=== PATIENT | male | born 1970 | race Caucasian/White ===

== ENCOUNTER 2020-04-06 11:34 | Outpatient (REF) | payer OTHER, SELFPAY | END 2020-04-06 11:35 | disposition home or self-care (01) | LOC: HO.LAB 11:34 | PROVIDERS: PCP Physician Assistant; Visit Provider Internal Medicine | DX: Z20.828 Contact with and (suspected) exposure to other viral communicable diseases (principal) | CPT/HCPCS: 87635 ==

== ENCOUNTER 2021-02-07 10:44 | Outpatient (REF) | payer OTHER, SELFPAY | END 2021-02-07 10:45 | disposition home or self-care (01) | LOC: HO.HMGCLDS 10:44 | PROVIDERS: PCP Physician Assistant; Visit Provider Internal Medicine | DX: Z20.822 Contact with and (suspected) exposure to COVID-19 (principal) | CPT/HCPCS: C9803; U0003; U0005 ==

== ENCOUNTER 2022-08-11 22:48 | Emergency (ER) | payer OTHER, SELFPAY ==
--- NOTE | ~2022-08-11 | XR_ITS ---
EXAMINATION: XR CHEST CLINICAL INFORMATION: Cough, asthma COMPARISON: 01-03 TECHNIQUE: 2 views of the chest were obtained. FINDINGS: Lung volumes are symmetric. No focal consolidation is seen. There is suggestion of mild central peribronchial thickening. No evidence of pneumothorax, pleural effusion, or pulmonary edema. The cardiomediastinal contour is unremarkable. No acute osseous findings are seen. XR/XR chest 2V IMPRESSION: No focal consolidation. Suggestion of mild central peribronchial thickening which may reflect airways disease.
[2022-08-11 22:50] VITALS: BP 125/86; PULSE 117; RESP 20; TEMP 38.3; O2SAT 93; BMI 26.8
--- NOTE | 2022-08-11 23:26 | ED_ITS ---
HPI - Asthma General Chief Complaint: Asthma Stated Complaint: asthma Time Seen by Provider: 08/11/22 23:20 Source: patient Mode of arrival: ambulatory Limitations: no limitations History of Present Illness HPI Narrative: Patient comes to the emergency room complaining asthma and fever. Patient states he has been having URI symptoms for 2 weeks. Patient states that at home he tested negative for COVID. Prior to arriving to the emergency room, patient gave himself a breathing treatment and took 40 mg of prednisone. Patient denies chest pain, no shortness of breath at this time. Related Data Home Medications Medication Instructions Recorded Confirmed fluticasone furoate 100 1 inh inhalation DAILY 03/30/21 03/15/22 mcg-vilanterol 25 mcg/dose inhalation powder (Breo Ellipta) Previous Rx's Medication Instructions Recorded sumatriptan succinate 25 mg tablet See Rx Instructions PO .COMPLEX 30 04/14/21 days #9 tabs montelukast 10 mg tablet 10 mg PO BEDTIME #90 tabs 06/30/21 fluticasone propionate 220 1 puff inhalation BID 30 days #12 09/28/21 mcg/actuation HFA aerosol inhaler grams (Flovent HFA) omeprazole 20 mg capsule,delayed 20 mg PO DAILY 90 days #90 caps 09/28/21 release cyclobenzaprine 10 mg tablet 10 mg PO BEDTIME #14 tabs 02/23/22 azithromycin 250 mg tablet See Rx Instructions PO .COMPLEX #6 05/01/22 tabs albuterol sulfate 90 mcg/actuation 2 puff inhalation Q6H 90 days #3 05/18/22 aerosol inhaler inhalers prednisone 20 mg tablet 20 mg PO DAILY 9 days #18 tabs 05/18/22 albuterol sulfate 90 mcg/actuation 1 inh inhalation QID 30 days #8.5 05/24/22 aerosol inhaler grams albuterol sulfate 90 mcg/actuation 2 puff inhalation Q4-6H PRN 08/12/22 aerosol inhaler shortness of breath or wheezing #8.5 grams benzonatate 100 mg capsule 100 mg PO TID PRN cough #10 caps 08/12/22 prednisone 50 mg tablet 50 mg PO DAILY #4 tabs 08/12/22 Allergies Allergy/AdvReac Type Severity Reaction Status Date / Time No Known Allergies Allergy Unknown UNKNOWN Verified 03/15/22 13:11 [NO KNOWN ALLERGIES] Review of Systems Review of Systems: Constitutional : No Weight loss, complaining of intermittent Fever, No Chills, No Night Sweats, No Fatigue, No Malaise ENT/Mouth : No Hearing loss, No Ear Pain, No Nasal Congestion, No Sinus Pain, No Hoarseness, No sore throat, No Rhinorrhea, No Swallowing Difficulty Eyes: No Eye Pain, No Swelling, No Redness, No Foreign Body, No Discharge, No Vision Changes Cardiovascular : No Chest Pain, No SOB, No Dyspnea on Exertion, No Orthopnea, No Edema, No Palpitations Respiratory : Complaining of cough, wheezing and dyspnea. At this time asymptomatic. Gastrointestinal : No Nausea, No Vomiting, No Diarrhea, No Constipation, No abdominal Pain, No Hematochezia, No Melena Genitourinary : no irregular bleeding, No Dysuria, No Urinary Frequency, No Hematuria, No Urinary Incontinence, No Urgency, No Flank Pain, No Urinary Flow Changes, No Hesitancy Musculoskeletal : No joint pain, No Myalgias, No Joint Swelling Skin : No Skin Lesions, No rash Neuro : No Weakness, No Numbness, No Paresthesias, No Loss of Consciousness, No Dizziness, No Headache Psych : No Anxiety/Panic, No Depression, No SI/HI/AH/VH, No Social Issues, Heme/Lymph: No Bruising, No Bleeding,No Lymphadenopathy Endocrine : No Polyuria, No Polydipsia, No Temperature Intolerance FORMERLY [facility] Past Medical History Medical History Abdominal pain Asthma GERD (gastroesophageal reflux disease) IBS (irritable bowel syndrome) Other chronic pain Surgical History History of surgery Social History Social History (Updated 03/15/22 @ 13:16 by Arnaldo Marion PA-C) Housing: House Alcohol intake: current Alcohol intake frequency: holidays/special occasions only Alcohol type: beer Patient Tobacco Use Status: Former Tobacco user e-Cigarette/Vaping Use: Never Used Second Hand Smoke Exposure: No Advance Directives: No Advance Directives Information Provided: No service: No Current occupational status: employed Current occupational exposures/hazards: No Cognitive needs: No Hearing needs: No Vision needs: Yes (wae glasses) Physical Exam Vital Signs: Vital Signs: Last Vital Signs Temp 101 F H 08/11/22 22:50 Pulse 117 H 08/11/22 22:50 Resp 20 08/11/22 22:50 BP 125/86 08/11/22 22:50 Pulse Ox 93 08/11/22 22:50 O2 Del Method 08/11/22 22:50 BMI result Body Mass Index 26.8 Const: Other: Appearance: Alert. Oriented X3. No acute distress. Eyes: Pupils equal, round and reactive to light. ENT: Pharynx normal. Neck: Normal inspection. Neck supple. No lymph nodes noted. No crepitus CVS: Normal heart rate and rhythm. Pulses normal. Normal S1 and S2 Respiratory: No respiratory distress. Breath sounds normal. No Wheezing. No rales Abdomen: Soft and nontender. No rigidity. No distention. Skin: Skin warm and dry. Normal skin color. Normal skin turgor. Extremities: No lower extremity edema. No Lacerations. No Rash Neuro: Oriented X 3. No motor deficit. No sensory deficit. Moving all extremities. No slurred speech. CN 2 through 12 grossly intact Psych: calm, cooperative, normal affect Course Course Course Narrative: -patient's physical exam is normal except by the tachycardia. Patient's oxygen saturation 93% on room air, very good air movement, no wheezing. Patient gave himself a treatment prior to arriving to the emergency room explaining the tachycardia. At this time, bring treatment not indicated, airways completely open. -chest x-ray and serology labs pending Medications Administered Discontinued Medications Generic Name Dose Route Start Last Admin Trade Name Gilq PRN Reason Stop Dose Admin Acetaminophen 975 mg 08/11/22 23:21 08/11/22 23:36 Acetaminophen 325 Mg Tablet PO 08/11/22 23:22 975 mg ONCE ONE Administration Prednisone 20 mg 08/11/22 23:46 08/11/22 23:48 Prednisone 20 Mg Tablet PO 08/11/22 23:47 20 mg ONCE ONE Administration Medical Decision Making Medical Decision Making [facility] Narrative: -chest x-ray does not show any consolidation. Patient likely has viral bronchitis, antibiotics not indicated at this time. -patient tested negative for influenza a, COVID and RSV Differential Diagnosis Differential Diagnoses: The differential diagnosis associated with the presentation includes (Asthma exacerbation, viral bronchitis) Lab Data [facility] Lab Attestation statement: I reviewed the patient's lab results. Labs: Lab Results 08/11/22 Range/Units 22:56 Influenza Type A (PCR) NEGATIVE (Negative) Influenza Type B (PCR) NEGATIVE (Negative) RSV RNA Qual (PCR) NEGATIVE (Negative) SARS-CoV-2 RNA (RT-PCR) NEGATIVE (Negative) Independent Interpretation I performed an independent interpretation of an: Plain X-Ray (Chest x-ray interpretation: No pneumonia) Radiology Impression Discussion of test interpretation with radiology: I have reviewed the radiologist's reading. Radiologist Impression: FINDINGS: Lung volumes are symmetric. No focal consolidation is seen. There is suggestion of mild central peribronchial thickening. No evidence of pneumothorax, pleural effusion, or pulmonary edema. The cardiomediastinal contour is unremarkable. No acute osseous findings are seen. XR/XR chest 2V IMPRESSION: No focal consolidation. Suggestion of mild central peribronchial thickening which may reflect airways disease. Discharge Plan Discharge Clinical Impression: Bronchitis, Asthma Patient Disposition: Home, Self-Care Instructions: Acute Bronchitis (ED), Wheezing (ED) Additional Instructions: Please follow-up with your primary care physician tomorrow. If you have any worsening or new symptoms, please return to the emergency room or call 911 Prescriptions: New albuterol sulfate 90 mcg/actuation HFA aerosol inhaler 2 puff inhalation Q4-6H PRN (Reason: shortness of breath or wheezing) Qty: 8.5 1RF prednisone 50 mg tablet 50 mg PO DAILY Qty: 4 0RF benzonatate 100 mg capsule 100 mg PO TID PRN (Reason: cough) Qty: 10 0RF No Action sumatriptan succinate 25 mg tablet See Rx Instructions PO .COMPLEX 30 Days Qty: 9 3RF Rx Instructions: take 1 tab at onset of headache; if no relief may repeat 1 tab after at least 2 hrs; max = 4 tabs/24 hr PO azithromycin 250 mg tablet See Rx Instructions PO .COMPLEX Qty: 6 0RF Rx Instructions: For 250 mg dose pack: take 500 mg today (day 1), then 250 mg for 4 days (days 2-5) PO prednisone 20 mg tablet 20 mg PO DAILY 9 Days Qty: 18 0RF albuterol sulfate 90 mcg/actuation HFA aerosol inhaler 2 puff inhalation Q6H 90 Days Qty: 3 3RF albuterol sulfate 90 mcg/actuation HFA aerosol inhaler 1 inh inhalation QID 30 Days Qty: 8.5 3RF Breo Ellipta 100-25 mcg/dose blister with device 1 inh inhalation DAILY montelukast 10 mg tablet 10 mg PO BEDTIME Qty: 90 2RF Flovent HFA 220 mcg/actuation HFA aerosol inhaler 1 puff inhalation BID 30 Days Qty: 12 3RF omeprazole 20 mg capsule,delayed release(DR/EC) 20 mg PO DAILY 90 Days Qty: 90 2RF cyclobenzaprine 10 mg tablet 10 mg PO BEDTIME Qty: 14 0RF
[2022-08-11] MEDS: Acetaminophen 325 MG TABLET 975 MG PO (23:36)
[2022-08-11] MEDS: predniSONE 20 MG TABLET PO (23:48)
[2022-08-12 01:05] LABS: Influenza A PCR NEGATIVE (Negative); Influenza B PCR NEGATIVE (Negative); Resp Syncy Virus RNA Qual PCR NEGATIVE (Negative); SARS COV2 PCR INHOUSE NEGATIVE (Negative)
[2022-08-12 03:01] VITALS: BP 126/83; PULSE 88; RESP 16; TEMP 37.3; O2SAT 98
== END 2022-08-12 03:04 | disposition home or self-care (01) ==
PROVIDERS: Emergency Provider Emergency Medicine; PCP Physician Assistant
DX: J40 Bronchitis, not specified as acute or chronic (principal); R50.9 Fever, unspecified; Z20.822 Contact with and (suspected) exposure to COVID-19; Z20.828 Contact with and (suspected) exposure to other viral communicable diseases; Z87.891 Personal history of nicotine dependence; Z79.899 Other long term (current) drug therapy
CPT/HCPCS: 0241U; 71046; 99283; 99284

== ENCOUNTER 2023-07-17 09:58 | Outpatient (AMB) | payer OTHER, SELFPAY ==
--- NOTE | 2023-07-17 10:26 | A.OFFPC_ITS ---
Vital Signs 07/17/23 10:33 Height 5 ft 5 in Weight 169 lb 6 oz BMI 28.2 BP 132/86 Blood Pressure Location Lt brachial Position Sitting Pulse 82 Pulse Source Pulse Oximeter Pulse Oximetry (%) 97 Oxygen Delivery Method Room Air Intake Visit Reasons: follow up/asthma Intake Note: Patient is here to follow up on Asthma. 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 Accompanied by: Self / Same As Patient Allergies No Known Allergies [NO KNOWN ALLERGIES] Allergy (Unknown, Verified 07/17/23 10:48) UNKNOWN Medication List - Last Reconciled 07/17/23 by Arnaldo Marion PA-C albuterol sulfate 90 mcg/actuation 2 puffs inhalation Q4-6H PRN albuterol sulfate 2.5 mg (3 mL) inhalation Q6H PRN 30 days cyclobenzaprine 10 mg PO BEDTIME montelukast 10 mg PO BEDTIME omeprazole 20 mg PO DAILY 90 days sumatriptan succinate take 1 tab at onset of headache; if no relief may repeat 1 tab after at least 2 hrs; max = 4 tabs/24 hr orally PRN; Tobacco use date assessed: 07/17/23 Dental Screening Dental Screen Date: 07/17/23 Did you have a dental visit in the last 12 months?: Yes Did you have a dental problem in the last 6 months where you did not have access to dental care?: No Was dental information given to patient?: Patient has dentist HPI follow up/asthma HPI Details Patient is a 53-year-old male here today for a follow-up visit ?Patient has a past medical history significant for moderate persistent asthma, migraines, GERD Concern--> reports he has been having bilateral hand pain and mild swelling. He feels he has arthritis .. Asthma:? Reports his asthma has fairly well controlled.? 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 Still has exacerbations due to environmental allergies and colds.? He also uses Singulair which he reports helps some.? Has used maintenance inhalers (Advair and Symbicort)? in the past without much relief of his asthma symptoms.? He reports using Breo which works well to control his asthma though has headaches. .. GERD:? Has started on daily use of omeprazole which works wonderfully and reducing his GERD symptoms . [facility]LY [facility] Medical History Abdominal pain Asthma GERD (gastroesophageal reflux disease) IBS (irritable bowel syndrome) Other chronic pain Surgical History History of surgery Social History Housing: House Alcohol intake: current Alcohol intake frequency: holidays/special occasions only Alcohol type: beer Patient Tobacco Use Status: Former Tobacco user e-Cigarette/Vaping Use: Never Used Second Hand Smoke Exposure: No service: No Current occupational status: employed Current occupational exposures/hazards: No Cognitive needs: No Hearing needs: No Vision needs: Yes (wae glasses) Questionnaire PHQ-9 Over the last 2 weeks, how often have you been bothered by any of the following problems? 1. Little interest or pleasure in doing things: not at all 2. Feeling down, depressed, or hopeless: not at all 3. Trouble falling or staying asleep, or sleeping too much: not at all 4. Feeling tired or having little energy: not at all 5. Poor appetite or overeating: not at all 6. Feeling bad about yourself - or that you are a failure or have let yourself or your family down: not at all 7. Trouble concentrating on things, such as reading the newspaper or watching television: not at all 8. Moving or speaking so slowly that other people could have noticed. Or the opposite - being so fidgety or restless that you have been moving around a lot more than usual: not at all 9. Thoughts that you would be better off or of hurting yourself in some way: not at all Total score: 0 Depression Screening Interpretation: Negative Depression Screening Done: Yes 16793 - PHQ-9 Billing: Yes Source: Developed by Drs. Mark Maynard, Amanda Vásquez, Dinesh Stone and colleagues, with an educational idania from [employer]. Thrive Questionnaire Date Thrive assessed: 07/17/23 I am a: Patient What is your living situation today?: I have a steady place to live Within the past 12 months, did the food you bought not last and you didn't have the money to get more?: Never true Within the past 12 months, did you worry whether your food would run out before you got money to buy more?: Never true Do you have trouble paying for medicines?: No Do you have trouble getting transportation to medical appointments?: No Do you have trouble paying your heating and electricity bill?: No Do you have trouble taking care of your child, family member or friend?: No Do you have trouble with day-to-day activities such as bathing, preparing meals, shopping, managing finances, etc.?: No Are you currently unemployed and looking for a job?: No Are you interested in more education?: No Please select the resources that you would like help with: None Currently or been in a relationship where the following occur: no concerns reported THRIVE Score: 0 AUDIT C Alcohol Use Questionnaire (AUDIT-C) 1. How often do you have a drink containing alcohol?: Never 3. How often do you have six or more drinks on one occasion?: Never Total Score: 0 JANA-7 AMB Questionnaire JANA-7 Date JANA - 7 assessed: 07/17/23 Feeling nervous, anxious, or on edge: 0 = Not at all Not being able to stop or control worryin = Not at all Worrying too much about different things: 0 = Not at all Trouble relaxin = Not at all Being so restless that it is hard to sit still: 0 = Not at all Becoming easily annoyed or irritable: 0 = Not at all Feeling afraid as if something awful might happen: 0 = Not at all Total JANA-7 score (0-4 normal; 5-9 mild; 10-14 moderate; 15-21 severe): 0 Source: Developed by Drs. Mark Maynard, Amanda Vásquez, Dinesh Stone and colleagues, with an educational idania from [employer]. JANA-7 Assessment Billing JANA-7 Assessment Tool: JANA-7 Assessment 33177 ACT Questionnaire In the past 4 weeks, how much of the time did your asthma keep you from getting as much done at work, school or at home?: None of the time During the past 4 weeks, how often have you had shortness of breath?: 1-2 times a week During the past 4 weeks, how often did your asthma symptoms wake you up at night or earlier than usual in the morning?: Once a week During the past 4 weeks, how often have you had to use your rescue inhaler or nebulizer medication?: 1-2 times a week How would you rate your asthma control during the past 4 weeks?: Somewhat contr olled ACT Interpretation: Negative Score: 17 Review of Systems Const Denies headache(s) Eyes Denies loss of vision ENT Denies vertigo, Denies dizziness, Denies headache(s) and Denies sore throat Card Denies chest pain, Denies leg edema and Denies lightheadedness Resp Denies cough, Denies hemoptysis and Denies wheezing GI Denies abdominal pain, Denies melena, Denies constipation, Denies diarrhea and Denies vomiting Denies dysuria, Denies urinary frequency and Denies urinary urgency Musc Denies arthralgias, Denies joint swelling, Denies numbness and Denies tingling Neuro Denies Abnormal speech present, Denies behavioral changes, Denies vertigo, Denies dizziness, Denies headache(s), Denies loss of vision, Denies memory loss, Denies numbness and Denies tingling Psych Denies anxiety, Denies behavioral changes, Denies depression, Denies memory loss and Denies panic attacks Leno/Lymph Denies easy bleeding and Denies easy bruising Aller/Immun Denies wheezing Physical exam (Primary Care) Vital Signs: Last Vital Signs Pulse 82 07/17/23 10:33 BP 132/86 07/17/23 10:33 Pulse Ox 97 07/17/23 10:33 Oxygen Delivery Method Room Air 07/17/23 10:33 BMI result Body Mass Index 28.2 Tobacco/Smoking Status: Tobacco use Status Tobacco use date assessed 07/17/23 07/17/23 10:43 Patient Tobacco Use Status Former Tobacco user 07/17/23 10:26 e-Cigarette/Vaping Use Never Used 07/17/23 10:26 PHQ-9: PHQ-9 Score PHQ-9: Total score 0 07/17/23 10:49 Depression Screening Interpretation: Negative Thrive Assessment: Date of Thrive Assessment Date Thrive assessed 07/17/23 07/17/23 10:43 Currently or been in a relationship where the following occur: no concerns reported Const General: healthy appearing, no acute distress, alert and awake Nutritional Appearance: well nourished Orientation/consciousness: oriented to person, oriented to place and oriented to time HENMT Ears: TM's normal bilaterally General nose exam: Normal nasal mucous membranes and turbinates present Eyes Conjunctivae: conjunctivae normal Sclerae: sclerae normal Pupils: Equal, round and reactive pupils present Neck Neck: Yes no lymphadenopathy and Yes no JVD Thyroid: Thyroid normal Carotids: no bruits Resp Effort & Inspection: normal respiratory effort and not tachypneic Auscultation: no crackles, no rales, no rhonchi and no wheezes Cardio Rate: regular rate Rhythm: regular rhythm Heart sounds: no murmurs and normal S1 and S2 GI Palpation (GI): Soft to palpation, nontender, no hepatomegaly and no splenomegaly Auscultation: normal bowel sounds Skin General skin exam: no rashes or lesions noted and dry skin Neuro General: oriented to person, oriented to place and oriented to time Cranial nerves: Yes Equal, round and reactive pupils present Speech: No Abnormal speech present Gait exam (Neuro): Normal gait present Motor exam (neuro): no tremor noted Extrem Right upper extremity: full ROM Left upper extremity: full ROM Right lower extremity: full ROM; no edema Left lower extremity: full ROM; no edema Psych Mental Status: mental status grossly normal Speech and movement: Normal speech and movement present Affect: normal affect Attitude: cooperative Thought process: Normal thought process present Assessment and Plan Assessment & Plan (1) Moderate persistent asthma: Code(s): J45.40 - Moderate persistent asthma, uncomplicated Qualifiers: Asthma complication type: uncomplicated Qualified Code(s): J45.40 - Moderate persistent asthma, uncomplicated Plan: Asthma has been better controlled 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 Does uses albuterol inhaler from time to time. He reports maintenance inhalers did not help him . Does use prednisone from time to time for emergencies. (2) Fatigue: Code(s): R53.83 - Other fatigue Qualifiers: Fatigue type: unspecified Qualified Code(s): R53.83 - Other fatigue (3) GERD (gastroesophageal reflux disease): Code(s): K21.9 - Gastro-esophageal reflux disease without esophagitis Qualifiers: Esophagitis presence: without esophagitis Qualified Code(s): K21.9 - Gastro-esophageal reflux disease without esophagitis Plan: Patient has good symptoms have been stable with current use of PPI therapy. (4) Hand arthritis: Code(s): M19.049 - Primary osteoarthritis, unspecified hand Plan: He reports he is bothered by bilateral hand arthritis pain. 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 Offered him occupational therapy though he declines at this time. Will test for autoimmune disease. He is willing to try an anti-inflammatory as needed, will send in meloxicam to use on a p.r.n. basis. Orders: Orders Comprehensive [place]. Panel Fast 07/17/23 Z13.1 - Encounter for screening for diabetes mellitus Rheumatoid Factor 07/17/23 M19.049 - Primary osteoarthritis, unspecified hand Cyclic Citrullinated Peptide 07/17/23 M19.049 - Primary osteoarthritis, unspecified hand Complete Blood Count no Diff 07/17/23 K21.9 - Gastro-esophageal reflux disease without esophagitis Prostate Specific Antigen Scr 07/17/23 Z12.5 - Encounter for screening for malignant neoplasm of prostate, Z13.1 - Encounter for screening for diabetes mellitus CASE Reflex Titer and Pattern 07/17/23 M19.049 - Primary osteoarthritis, unspecified hand Referrals Gastroenterology Referral Z12.11 - Encounter for screening for malignant neoplasm of colon Medications: New acetaminophen ER (Tylenol Arthritis Pain) 650 mg PO Q12H 30 days 60 tabs 0RF M19.049 - Primary osteoarthritis, unspecified hand, M19.90 - Unspecified osteoarthritis, unspecified site prednisone 20 mg PO DAILY 10 days 10 tabs 0RF J45.40 - Moderate persistent asthma, uncomplicated albuterol sulfate 2.5 mg (3 mL) inhalation Q6H 30 days PRN 360 mL 1RF shortness of breath or wheezing J45.40 - Moderate persistent asthma, uncomplicated meloxicam 15 mg PO DAILY 15 days 15 tabs 0RF M19.049 - Primary osteoarthritis, unspecified hand Changed From sumatriptan succinate take 1 tab at onset of headache; if no relief may repeat 1 tab after at least 2 hrs; max = 4 tabs/24 hr orally PRN; G43.909 - Migraine, unspecified, not intractable, without status migrainosus To sumatriptan succinate take 1 tab at onset of headache; if no relief may repeat 1 tab after at least 2 hrs; max = 4 tabs/24 hr PO 30 days 9 tabs 0RF G43.909 - Migraine, unspecified, not intractable, without status migrainosus Refilled montelukast 10 mg PO BEDTIME 90 tabs 2RF J45.40 - Moderate persistent asthma, uncomplicated omeprazole 20 mg PO DAILY 90 days 90 caps 2RF J45.40 - Moderate persistent asthma, uncomplicated, K21.9 - Gastro-esophageal reflux disease without esophagitis Coding Level of Care Code Est Pt Level 4 (56371) Diagnoses Moderate persistent asthma without complication J45.40 Asthma complication type: uncomplicated Fatigue, unspecified type R53.83 Fatigue type: unspecified Gastroesophageal reflux disease without esophagitis K21.9 Esophagitis presence: without esophagitis Hand arthritis M19.049 Additional Codes JANA-7 Assessment Billing - JANA-7 Assessment Tool: JANA-7 Assessment 32299 ([id number])
[2023-07-17 10:33] VITALS: BP 132/86; PULSE 82; O2SAT 97; BMI 28.2
== END 2023-07-17 11:11 | disposition home or self-care (01) ==
PROVIDERS: PCP Physician Assistant; Visit Provider Physician Assistant
DX: J45.40 Moderate persistent asthma, uncomplicated (principal); R53.83 Other fatigue; K21.9 Gastro-esophageal reflux disease without esophagitis; M19.049 Primary osteoarthritis, unspecified hand
CPT/HCPCS: 99214

== ENCOUNTER 2023-08-21 13:00 | Emergency (ER) | payer OTHER, SELFPAY ==
--- NOTE | ~2023-08-21 | XR_ITS ---
EXAMINATION: XR CHEST CLINICAL INFORMATION: Chest pain COMPARISON: None available. TECHNIQUE: 2 views of the chest were obtained. FINDINGS: No significant abnormality is noted involving the heart, lungs, mediastinum, bony thorax or soft tissues. XR/XR chest 2V IMPRESSION: Unremarkable chest examination.
[2023-08-21 13:02] VITALS: BP 143/94; PULSE 83; RESP 16; TEMP 36.6; O2SAT 99; BMI 24.6
--- NOTE | 2023-08-21 13:03 | ECG_ITS ---
Test Reason : palpitations Blood Pressure : / mmHG Vent. Rate : 077 BPM Atrial Rate : 077 BPM P-R Int : 134 ms QRS Dur : 086 ms QT Int : 358 ms P-R-T Axes : 073 054 043 degrees QTc Int : 405 ms Normal sinus rhythm Normal ECG When compared with ECG of 27-DEC-2018 10:58, No significant change was found Referred By: Gregorio Quinones Electronically Signed By:Rashad Mckay
--- NOTE | 2023-08-21 13:03 | ED_ITS ---
HPI - General Adult General Chief complaint: General Medical Stated complaint: Anxiety Attack SOB Time Seen by Provider: 08/21/23 15:53 Source: patient Mode of arrival: ambulatory Limitations: no limitations History of Present Illness HPI narrative: Patient is a 53-year-old male presenting to the emergency department with complaint of feeling shaky and short of breath prior to arrival. He states that on Sunday night his daughter developed nausea, vomiting, and diarrhea. He reports that on Sunday he developed the same symptoms, was unable to tolerate any fluids by mouth on Sunday. States yesterday he began to feel better and was able to tolerate food and fluids by mouth. Today while he was driving to work he suddenly felt shaky and short of breath as well as chest tightness. He also complains of right flank pain. He denies any dysuria, frequency, hematuria or other urinary symptoms. Denies fevers. Denies abdominal pain. MD complaint: shaky, short of breath Onset (ago): hour(s) Quality: aching Pain Consistency: colicky Treatments prior to arrival: none Related Data Previous Rx's Medication Instructions Recorded cyclobenzaprine 10 mg tablet 10 mg PO BEDTIME #14 tabs 02/23/22 acetaminophen 650 mg 650 mg PO Q12H 30 days #60 tabs 07/17/23 tablet,extended release (Tylenol Arthritis Pain) albuterol sulfate 2.5 mg/3 mL 2.5 mg (3 mL) inhalation Q6H PRN 07/17/23 (0.083 %) solution for nebulization shortness of breath or wheezing 30 days #360 mL meloxicam 15 mg tablet 15 mg PO DAILY 15 days #15 tabs 07/17/23 montelukast 10 mg tablet 10 mg PO BEDTIME #90 tabs 07/17/23 omeprazole 20 mg capsule,delayed 20 mg PO DAILY 90 days #90 caps 07/17/23 release prednisone 20 mg tablet 20 mg PO DAILY 10 days #10 tabs 07/17/23 albuterol sulfate 90 mcg/actuation 2 puff inhalation Q4-6H PRN 08/05/23 aerosol inhaler shortness of breath or wheezing #8.5 grams sumatriptan succinate 25 mg tablet See Rx Instructions PO .COMPLEX 30 08/13/23 days #9 tabs Allergies Allergy/AdvReac Type Severity Reaction Status Date / Time No Known Allergies Allergy Unknown UNKNOWN Verified 07/17/23 10:48 [NO KNOWN ALLERGIES] Review of Systems 2 Review of Systems: As per HPI. Yes all other systems are reviewed and are negative [facility] Past Medical History Medical History Abdominal pain Asthma GERD (gastroesophageal reflux disease) IBS (irritable bowel syndrome) Other chronic pain Surgical History History of surgery Social History Social History Housing: House Alcohol intake: current Alcohol intake frequency: holidays/special occasions only Alcohol type: beer Patient Tobacco Use Status: Former Tobacco user e-Cigarette/Vaping Use: Never Used Second Hand Smoke Exposure: No Advance Directives: No Advance Directives Information Provided: No service: No Current occupational status: employed Current occupational exposures/hazards: No Cognitive needs: No Hearing needs: No Vision needs: Yes (wae glasses) Physical Exam ED Vital Signs: Vital Signs - 24 hr 08/21/23 13:02 08/21/23 15:34 Temperature 97.8 F 97.8 F Pulse Rate 83 76 Respiratory Rate 16 16 Blood Pressure 143/94 H 116/84 Pulse Oximetry 99 96 Oxygen Delivery Method Room Air Room Air BMI result Body Mass Index 24.6 Vital signs have been reviewed and appear to be correct. Blood pressure normal. Heart rate normal. Respiratory rate normal. Temperature normal. Oxygen saturation normal. Course Course Course Narrative: RME- 53 year old male presents for evaluation of shortness of breath and anxiety. He reports right flank pain. He also reports that he was vomiting and weak all day yesterday. Denies any history of anxiety. Medications Administered Discontinued Medications Generic Name Dose Route Start Last Admin Trade Name Freq PRN Reason Stop Dose Admin Potassium Chloride 20 meq 08/21/23 16:23 08/21/23 17:05 Potassium Chloride Packet 20 Meq Packet PO 08/21/23 16:24 20 meq ONCE ONE Administration Medical Decision Making Medical Decision Making [facility] Narrative: Patient is a 53-year-old male presenting to the emergency department with complaint of feeling shaky and short of breath prior to arrival. On exam patient is awake, A+Ox3, VS WNL, afebrile, normal neurological exam without focal deficits, physical exam findings as above. Given reported symptoms and physical exam findings, initial differential includes electrolyte abnormality, dehydration, viral illness, cardiac dysrhythmia, anemia. Unlikely ACS. Labs notable for mild hypokalemia, no other significant electrolyte abnormalities, no leukocytosis or anemia. EKG shows normal sinus rhythm. No evidence of infection on urinalysis. Swabs for COVID, flu, RSV negative. X-ray notable for no evidence of pneumonia or other acute abnormality. My interpretation is in agreement with the radiologist's interpretation. P.o. potassium ordered in the ED. Patient able to tolerate fluids without vomiting. Patient updated on all results and all questions answered. Advised patient to ensure adequate fluid intake with fluids including electrolytes such as Gatorade, Powerade, Pedialyte, etc.. Instructed patient to follow-up with primary care provider for recheck of labs this week. Return precautions discussed at bedside. Patient verbalized understanding of and agreement with plan. Differential Diagnosis Differential Diagnoses: The differential diagnosis associated with the presentation includes As per [facility]. Lab Data [facility] Lab Attestation statement: I reviewed the patient's lab results. As per [facility]. 08/21/23 13:24 08/21/23 13:24 Labs: Lab Results 08/21/23 08/21/23 Range/Units 13:24 17:11 WBC 7.7 (4.8-10.8) X10*3/uL RBC 5.53 (4.60-5.80) X10*6/uL Hgb 16.6 (14.0-18.0) g/dl Hct 45.5 (42.0-52.0) % MCV 82.3 (80.0-98.0) fL MCH 30.0 (27.0-33.0) pg MCHC 36.5 H (31.0-36.0) g/dl RDW 13.1 (11.0-16.0) % Plt Count 258 (160-400) X10*3/uL MPV 9.2 L (9.4-12.4) fL Immature Gran % (Auto) 0.3 (0.0-0.4) % Neut % (Auto) 63.6 (45-73) % Lymph % (Auto) 27.6 (20-40) % [place]assen % (Auto) 8.4 (2-11) % Eos % (Auto) 0.0 (0-4) % Baso % (Auto) 0.1 (0-2) % Lymph # (Auto) 2.1 (1.2-4.9) X10*3/uL [place] # (Auto) 0.7 (0.1-1.2) X10*3/uL Eos # (Auto) 0.0 (0.0-0.4) X10*3/uL Baso # (Auto) 0.0 (0.0-0.2) X10*3/uL Abs Immat Gran (auto) 0.02 (0.00-0.03) X10*3/uL Absolute Neuts (auto) 4.9 (2.0-8.3) x10*3/uL Absolute Nucleated RBC 0.000 (0.0-0.012) X10*3/uL Nucleated RBC % (auto) 0.0 (0.0-0.2) /100WBC Sodium 140 (135-145) mmol/L Potassium 3.1 L (3.3-5.1) mmol/L Chloride 110 H (96-108) mmol/L Carbon Dioxide 22 (22-29) mmol/L Anion Gap 11 L (12-20) BUN 14 (9-16) mg/dL Creatinine 0.94 (0.5-1.4) mg/dL Estim Creat Clear Calc 88.9 Estimated GFR > 60 Random Glucose 123 H (60-115) mg/dL Calcium 8.8 (8.4-10.2) mg/dL Magnesium 2.1 (1.6-2.6) mg/dL Total Bilirubin 0.3 (0.0-1.0) mg/dL AST 18 (5-37) U/L ALT 23 (0-40) U/L Alkaline Phosphatase 68 (39-117) U/L Troponin I High Sens < 2.7 (<3.5-35.0) ng/L Total Protein 6.6 (6.5-8.0) g/dL Albumin 3.9 (3.5-5.0) g/dL Lipase 22 (8-78) U/L TSH 0.84 (0.32-4.0) uIU/mL Urine Color Yellow Urine Appearance Clear Urine pH 6.5 (5.0-9.0) Ur Specific [place] >= 1.030 H (1.005-1.025) Urine Protein Trace (Neg-Trace) mg/dL Urine Glucose (UA) Negative (Negative) mg/dL Urine Ketones Negative (Negative) mg/dL Urine Blood Negative (Negative) Urine Nitrite Negative (Negative) Ur Leukocyte Esterase Negative (Negative) Urine RBC 0-2 (0-2) /HPF Urine WBC 0-5 (0-5) /HPF Ur Squamous Epith Cells 0-2 (0-2) /HPF Urine Bacteria None Seen (None Seen) Hyaline Casts 0-2 (0-2) /LPF Influenza Type A (PCR) NEGATIVE (Negative) Influenza Type B (PCR) NEGATIVE (Negative) RSV RNA Qual (PCR) NEGATIVE (Negative) SARS-CoV-2 RNA (RT-PCR) NEGATIVE (Negative) Independent Interpretation I performed an independent interpretation of an: EKG (normal sinus rhythm, rate 77bp, normal pr interval and QTc) and Plain X-Ray Interpretation: No evidence of pneumonia, pneumothorax on CXR Radiology Impression Discussion of test interpretation with radiology: I have reviewed the radiologist's reading. Radiologist Impression: XR/XR chest 2V IMPRESSION: Unremarkable chest examination. External Record Review External record reviewed: Inpatient record, Office record and Outpatient record Discharge Plan Discharge Clinical Impression: Hypokalemia Patient Disposition: Home, Self-Care Instructions: Potassium Content of Foods List (ED), Hypokalemia (ED) Additional Instructions: You were evaluated in the emergency department today for shakiness and shortness of breath. Your symptoms are likely related to your recent gastrointestinal illness. Your potassium was found to be low in the emergency department today you were given oral potassium to replace this. You should follow-up with your primary care provider within 2 days so that your labs can be rechecked to be sure that your potassium remains at a normal level. It is important that you hydrate with fluids that contain electrolytes with drinks such as Gatorade, Powerade, Pedialyte, etc.. Return to the emergency department if you were unable to tolerate fluids by mouth, have persistent vomiting, develop chest pain, shortness of breath, abdominal pain, fever or any other concerning symptoms. Prescriptions: No Action albuterol sulfate 90 mcg/actuation HFA aerosol inhaler 2 puff inhalation Q4-6H PRN (Reason: shortness of breath or wheezing) Qty: 8.5 3RF sumatriptan succinate 25 mg tablet See Rx Instructions PO .COMPLEX 30 Days Qty: 9 0RF Rx Instructions: take 1 tab at onset of headache; if no relief may repeat 1 tab after at least 2 hrs; max = 4 tabs/24 hr PO montelukast 10 mg tablet 10 mg PO BEDTIME Qty: 90 2RF albuterol sulfate 2.5 mg /3 mL (0.083 %) solution for nebulization 2.5 mg inhalation Q6H PRN (Reason: shortness of breath or wheezing) 30 Days Qty: 360 1RF omeprazole 20 mg capsule,delayed release(DR/EC) 20 mg PO DAILY 90 Days Qty: 90 2RF acetaminophen [Tylenol Arthritis Pain] 650 mg tablet extended release 650 mg PO Q12H 30 Days Qty: 60 0RF meloxicam 15 mg tablet 15 mg PO DAILY 15 Days Qty: 15 0RF prednisone 20 mg tablet 20 mg PO DAILY 10 Days Qty: 10 0RF cyclobenzaprine 10 mg tablet 10 mg PO BEDTIME Qty: 14 0RF Stand Alone Forms: Work/School Release
[2023-08-21 13:30] LABS: MANUAL DIFF FLAG NO
[2023-08-21 13:36] LABS: Basophils Percent Auto 0.1 % (0-2); Hematocrit 45.5 % (42.0-52.0); Hemoglobin 16.6 g/dl (14.0-18.0); Imm Gran Abs Auto 0.02 X10*3/uL (0.00-0.03); Imm Gran Pct Auto 0.3 % (0.0-0.4); Lymphocytes Absolute Auto 2.1 X10*3/uL (1.2-4.9); Lymphocytes Percent Auto 27.6 % (20-40); Mean Corpuscular HGB Conc 36.5 g/dl (31.0-36.0); Mean Corpuscular Volume 82.3 fL (80.0-98.0); Mean Platelet Volume 9.2 fL (9.4-12.4); Monocytes Absolute Auto 0.7 X10*3/uL (0.1-1.2); Monocytes Percent Auto 8.4 % (2-11); Neutrophils Absolute Auto 4.9 x10*3/uL (2.0-8.3); Neutrophils Percent Auto 63.6 % (45-73); Platelet Count 258 X10*3/uL (160-400); Red Blood Count 5.53 X10*6/uL (4.60-5.80); Red Cell Distribution Width 13.1 % (11.0-16.0); White Blood Count 7.7 X10*3/uL (4.8-10.8)
[2023-08-21 14:00] LABS: Alanine Aminotransferase 23 U/L (0-40); Albumin Level 3.9 g/dL (3.5-5.0); Alkaline Phosphatase 68 U/L (39-117); Anion Gap 11 (12-20); Aspartate Amino Transferase 18 U/L (5-37); Bilirubin Total 0.3 mg/dL (0.0-1.0); Blood Urea Nitrogen 14 mg/dL (9-16); Calcium 8.8 mg/dL (8.4-10.2); Carbon Dioxide 22 mmol/L (22-29); Chloride 110 mmol/L (96-108); Creatinine Clr Calc Pharmacy 88.9; Estimated Glomerular Filt Rate > 60; Glucose Random 123 mg/dL (60-115); Lipase 22 U/L (8-78); Potassium 3.1 mmol/L (3.3-5.1); Sodium 140 mmol/L (135-145); Total Protein 6.6 g/dL (6.5-8.0)
[2023-08-21 14:12] LABS: Influenza A PCR NEGATIVE (Negative); Influenza B PCR NEGATIVE (Negative); Resp Syncy Virus RNA Qual PCR NEGATIVE (Negative); SARS COV2 PCR INHOUSE NEGATIVE (Negative)
[2023-08-21 14:18] LABS: TSH reflex Free T4 0.84 uIU/mL (0.32-4.0)
[2023-08-21 15:34] VITALS: BP 116/84; PULSE 76; RESP 16; TEMP 36.6; O2SAT 96
[2023-08-21 16:06] LABS: Troponin-I High Sensitivity < 2.7 ng/L (<3.5-35.0)
[2023-08-21 16:47] LABS: Magnesium 2.1 mg/dL (1.6-2.6)
[2023-08-21] MEDS: Potassium Chloride Packet 20 MEQ PACKET PO (17:05)
[2023-08-21 17:17] LABS: Appearance Urine Clear; Color Urine Yellow; Glucose Urine UA Negative (Negative); Leukocyte Esterase Urine Negative (Negative); Nitrite Urine Negative (Negative); PH 6.5 (5.0-9.0); Specific Gravity - Urine >= 1.030 (1.005-1.025); Urine Blood Negative (Negative); Urine Ketones Negative (Negative); Urine Protein Trace mg/dL (Neg-Trace)
[2023-08-21 17:23] LABS: Bacteria Urine None Seen (None Seen); Hyaline Casts Urine 0-2 /LPF (0-2); RBC Urine 0-2 /HPF (0-2); Squamous Epithelial Cell Urine 0-2 /HPF (0-2); WBC Urine 0-5 /HPF (0-5)
== END 2023-08-21 19:07 | disposition home or self-care (01) ==
PROVIDERS: Physician Assistant; Registered Nurse Emergency; Emergency Provider Emergency Medicine Emergency Medical Services; PCP Physician Assistant
DX: E87.6 Hypokalemia (principal); F41.1 Generalized anxiety disorder; R06.02 Shortness of breath; R10.9 Unspecified abdominal pain; R07.89 Other chest pain; R11.2 Nausea with vomiting, unspecified; Z79.899 Other long term (current) drug therapy; Z11.52 Encounter for screening for COVID-19; Z20.822 Contact with and (suspected) exposure to COVID-19
CPT/HCPCS: 0241U; 71046; 80053; 81001; 83690; 83735; 84443; 84484; 85025; 93005; 99283

== ENCOUNTER → 2023-08-21 13:03 | Outpatient (BNV) | payer OTHER, SELFPAY | PROVIDERS: Emergency Provider Emergency Medicine Emergency Medical Services; PCP Physician Assistant; Visit Provider Internal Medicine Cardiovascular Disease | DX: R00.2 Palpitations (principal) | CPT/HCPCS: 93010 ==

== ENCOUNTER 2023-08-23 15:21 | Outpatient (AMB) | payer OTHER, SELFPAY ==
[2023-08-23 15:26] VITALS: BP 114/76; PULSE 82; RESP 16; O2SAT 97; BMI 25.7
--- NOTE | 2023-08-23 15:26 | A.OFFPC_ITS ---
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 Was seen at the ER for acute GI discomfort, diarrhea and vomiting. Was found to be hypokalemic and was given oral potassium supplementation while in the ER. He reports his daughter also had similar symptoms just before his presentation. He reports he has never been sick like this before. Currently feeling a bit better, did have diarrhea today. He denies any fevers abdominal pain at this time. [facility] Medical History Abdominal pain Asthma GERD (gastroesophageal reflux disease) IBS (irritable bowel syndrome) Other chronic pain Surgical History History of surgery Social History Housing: House Alcohol intake: current Alcohol intake frequency: holidays/special occasions only Alcohol type: beer Patient Tobacco Use Status: Former Tobacco user e-Cigarette/Vaping Use: Never Used Second Hand Smoke Exposure: No service: No Current occupational status: employed Current occupational exposures/hazards: No Cognitive needs: No Hearing needs: No Vision needs: Yes (wae glasses) Questionnaire Thrive Questionnaire Date Thrive assessed: 07/17/23 JANA-7 AMB Questionnaire JANA-7 Date JANA - 7 assessed: 07/17/23 Source: Developed by Drs. Mark Maynard, Amanda Vásquez, Dinesh Stone and colleagues, with an educational idania from [employer]. Review of Systems Const Denies headache(s) Eyes Denies loss of vision ENT Denies vertigo, Denies dizziness, Denies headache(s) and Denies sore throat Card Denies chest pain, Denies leg edema and Denies lightheadedness Resp Denies cough, Denies hemoptysis and Denies wheezing GI Denies abdominal pain, Denies melena, Denies constipation, Reports diarrhea and Reports vomiting Denies dysuria, Denies urinary frequency and Denies urinary urgency Musc Denies arthralgias, Denies joint swelling, Denies numbness and Denies tingling Neuro Denies Abnormal speech present, Denies behavioral changes, Denies vertigo, Denies dizziness, Denies headache(s), Denies loss of vision, Denies memory loss, Denies numbness and Denies tingling Psych Denies anxiety, Denies behavioral changes, Denies depression, Denies memory loss and Denies panic attacks Leno/Lymph Denies easy bleeding and Denies easy bruising Aller/Immun Denies wheezing Physical exam (Primary Care) Vital Signs: Last Vital Signs Pulse 82 08/23/23 15:26 Resp 16 08/23/23 15:26 BP 114/76 08/23/23 15:26 Pulse Ox 97 08/23/23 15:26 Oxygen Delivery Method Room Air 08/23/23 15:26 BMI result Body Mass Index 25.7 Tobacco/Smoking Status: Tobacco use Status Tobacco use date assessed 07/17/23 08/23/23 15:27 Patient Tobacco Use Status Former Tobacco user 08/23/23 15:27 e-Cigarette/Vaping Use Never Used 08/23/23 15:27 Thrive Assessment: Date of Thrive Assessment Date Thrive assessed 07/17/23 08/23/23 15:27 Const General: healthy appearing, no acute distress, alert and awake Nutritional Appearance: well nourished Orientation/consciousness: oriented to person, oriented to place and oriented to time HENMT Ears: TM's normal bilaterally General nose exam: Normal nasal mucous membranes and turbinates present Eyes Conjunctivae: conjunctivae normal Sclerae: sclerae normal Pupils: Equal, round and reactive pupils present Neck Neck: Yes no lymphadenopathy and Yes no JVD Thyroid: Thyroid normal Carotids: no bruits Resp Effort & Inspection: normal respiratory effort and not tachypneic Auscultation: no crackles, no rales, no rhonchi and no wheezes Cardio Rate: regular rate Rhythm: regular rhythm Heart sounds: no murmurs and normal S1 and S2 GI Palpation (GI): Soft to palpation, nontender, no hepatomegaly and no splenomegaly Auscultation: normal bowel sounds Skin General skin exam: no rashes or lesions noted and dry skin Neuro General: oriented to person, oriented to place and oriented to time Cranial nerves: Yes Equal, round and reactive pupils present Speech: No Abnormal speech present Gait exam (Neuro): Normal gait present Motor exam (neuro): no tremor noted Extrem Right upper extremity: full ROM Left upper extremity: full ROM Right lower extremity: full ROM; no edema Left lower extremity: full ROM; no edema Psych Mental Status: mental status grossly normal Speech and movement: Normal speech and movement present Affect: normal affect Attitude: cooperative Thought process: Normal thought process present Assessment and Plan Assessment & Plan (1) Viral gastroenteritis: Code(s): A08.4 - Viral intestinal infection, unspecified Plan: Patient's signs symptoms most consistent with a viral gastroenteritis. Seems to be at the end of his clinical course. Advised to stay well hydrated with electrolytes. Will supply patient with a few days of electrolyte supplement. Will recheck baseline labs. (2) Hypokalemia: Code(s): E87.6 - Hypokalemia Plan: As above will supply patient with potassium supplementation for the short-term. Advised to stay well hydrated Orders: Orders Complete Blood Count no Diff 08/23/23 E87.6 - Hypokalemia Lipase 08/23/23 E87.6 - Hypokalemia Basic Metabolic Panel 08/23/23 E87.6 - Hypokalemia Medications: New potassium chloride ER (Klor-Con) 10 mEq PO DAILY 10 days 10 tabs 0RF E87.6 - Hypokalemia Refilled omeprazole 20 mg PO DAILY 90 days 90 caps 2RF J45.40 - Moderate persistent asthma, uncomplicated, K21.9 - Gastro-esophageal reflux disease without esophagitis prednisone 20 mg PO DAILY 10 days 10 tabs 0RF J45.40 - Moderate persistent asthma, uncomplicated Coding Level of Care Code Est Pt Level 3 (19940) Diagnoses Viral gastroenteritis A08.4 Hypokalemia E87.6
== END 2023-08-23 15:54 | disposition home or self-care (01) ==
PROVIDERS: PCP Physician Assistant; Visit Provider Physician Assistant
DX: A08.4 Viral intestinal infection, unspecified (principal); E87.6 Hypokalemia
CPT/HCPCS: 99213

== ENCOUNTER 2023-10-16 10:40 | Outpatient (REF) | payer OTHER, SELFPAY ==
[2023-10-16 13:31] LABS: Hematocrit 47.5 % (42.0-52.0); Hemoglobin 17.1 g/dl (14.0-18.0); Mean Corpuscular Hemoglobin 30.3 pg (27.0-33.0); Mean Corpuscular Volume 84.1 fL (80.0-98.0); Mean Platelet Volume 9.4 fL (9.4-12.4); Platelet Count 286 X10*3/uL (160-400); Red Blood Count 5.65 X10*6/uL (4.60-5.80); Red Cell Distribution Width 13.8 % (11.0-16.0); White Blood Count 8.8 X10*3/uL (4.8-10.8)
[2023-10-16 13:50] LABS: Anion Gap 11 (12-20); Blood Urea Nitrogen 14 mg/dL (9-16); Calcium 8.6 mg/dL (8.4-10.2); Carbon Dioxide 26 mmol/L (22-29); Chloride 106 mmol/L (96-108); Estimated Glomerular Filt Rate > 60; Glucose Random 138 mg/dL (60-115); Lipase 30 U/L (8-78); Potassium 3.4 mmol/L (3.3-5.1); Sodium 140 mmol/L (135-145)
== END 2023-10-16 10:41 | disposition home or self-care (01) ==
LOC: HO.10HDL 10:40
PROVIDERS: Visit Provider Physician Assistant
DX: E87.6 Hypokalemia (principal)
CPT/HCPCS: 36415; 80048; 83690; 85027

== ENCOUNTER 2023-10-17 09:23 | Outpatient (AMB) | payer OTHER, SELFPAY ==
--- NOTE | 2023-10-17 09:50 | A.OFFPC_ITS ---
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 Accompanied by: Self / Same As Patient Allergies No Known Allergies [NO KNOWN ALLERGIES] Allergy (Unknown, Verified 10/17/23 10:10) UNKNOWN Medication List - Last Reconciled 10/17/23 by Arnaldo Marion PA-C acetaminophen ER (Tylenol Arthritis Pain) 650 mg PO Q12H 30 days albuterol sulfate 2.5 mg (3 mL) inhalation Q6H PRN 30 days albuterol sulfate 90 mcg/actuation 2 puffs inhalation Q4-6H PRN cyclobenzaprine 10 mg PO BEDTIME lorazepam 0.5 mg PO BID PRN 4 days meloxicam 15 mg PO DAILY 15 days montelukast 10 mg PO BEDTIME omeprazole 20 mg PO DAILY 90 days sumatriptan succinate take 1 tab at onset of headache; if no relief may repeat 1 tab after at least 2 hrs; max = 4 tabs/24 hr PO 30 days Tobacco use date assessed: 07/17/23 Dental Screening Dental Screen Date: 07/17/23 HPI Annual Exam HPI Details Patient is a 53-year-old male here today for a annual physical ?Patient has a past medical history significant for moderate persistent asthma, migraines, GERD .. Asthma:? Reports his asthma has fairly well controlled.? 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 Still has exacerbations due to environmental allergies and colds.? He also uses Singulair which he reports helps some.? Has used maintenance inhalers (Advair and Symbicort)? in the past without much relief of his asthma symptoms.? He reports using Breo which works well to control his asthma though has headaches. .. Migraines: Have been well controlled since better control of his asthma. Does seldomly use sumatriptan for migraine . .. GERD:? Has started on daily use of omeprazole which works wonderfully and reducing his GERD symptoms . Colon cancer screening: Patient is by gastroenterology here in [place], has not been to scheduled colonoscopy Vaccines: Declines flu vaccine, up-to-date with COVID vaccine and pneumonia vaccine and tetanus vaccine, Considering Shingrex . [facility] Medical History Other chronic pain Abdominal pain Asthma IBS (irritable bowel syndrome) GERD (gastroesophageal reflux disease) Surgical History History of surgery Social History (Updated 10/17/23 @ 10:10 by Arnaldo Marion PA-C) Housing: House Alcohol intake: current Alcohol intake frequency: holidays/special occasions only Alcohol type: beer Patient Tobacco Use Status: Former Tobacco user Quit Date: 2019 e-Cigarette/Vaping Use: Never Used Second Hand Smoke Exposure: No service: No Current occupational status: unemployed Current occupational exposures/hazards: No Cognitive needs: No Hearing needs: No Vision needs: Yes (wae glasses) Questionnaire Thrive Questionnaire Date Thrive assessed: 07/17/23 JANA-7 AMB Questionnaire JANA-7 Date JANA - 7 assessed: 07/17/23 Source: Developed by Drs. Mark Maynard, Amanda Vásquez, Dinesh Stone and colleagues, with an educational idania from [email or web address]. ACT Questionnaire In the past 4 weeks, how much of the time did your asthma keep you from getting as much done at work, school or at home?: A little of the time During the past 4 weeks, how often have you had shortness of breath?: Not at all During the past 4 weeks, how often did your asthma symptoms wake you up at night or earlier than usual in the morning?: Not at all During the past 4 weeks, how often have you had to use your rescue inhaler or nebulizer medication?: Once a week or less How would you rate your asthma control during the past 4 weeks?: Well controlled ACT Interpretation: Negative Score: 22 Review of Systems Const Denies body aches, Denies chills, Denies excessive sweating, Denies fatigue, Denies fever(s) and Denies headache(s) Eyes Denies blurry vision ENT Denies dysphagia, Denies vertigo, Denies dizziness, Denies headache(s), Denies hearing loss and Denies tinnitus Card Denies chest pain, Denies chest pain with activity, Denies syncope, Denies irregular heart rhythm and Denies dyspnea Resp Denies chest congestion, Denies cough, Denies hemoptysis, Denies dyspnea and Denies wheezing GI Denies abdominal pain, Denies melena, Denies hematochezia, Denies coffee ground emesis, Denies dysphagia, Denies diarrhea, Denies nausea and Denies vomiting Denies difficulty urinating, Denies dysuria, Denies urinary frequency, Denies urinary hesitancy and Denies urinary urgency Musc Denies arthralgias, Denies limited range of motion, Denies muscle cramps and Denies muscle weakness Skin/Breast Denies rash and Denies skin ulcer Neuro Denies Abnormal speech present, Denies confusion, Denies vertigo, Denies dizziness, Denies syncope, Denies headache(s), Denies memory loss and Denies seizure-like activity Psych Denies anxiety, Denies confusion, Denies depression, Denies memory loss, Denies panic attacks and Denies paranoia Endo Denies excessive sweating, Denies fatigue, Denies flushing, Denies polydipsia and Denies polyuria Aller/Immun Denies wheezing Physical exam (Primary Care) Vital Signs: Last Vital Signs Pulse 80 10/17/23 09:51 BP 108/78 10/17/23 09:51 Pulse Ox 95 10/17/23 09:51 Oxygen Delivery Method Room Air 10/17/23 09:51 BMI result Body Mass Index 25.6 Tobacco/Smoking Status: Tobacco use Status Tobacco use date assessed 07/17/23 10/17/23 09:55 Patient Tobacco Use Status Former Tobacco user 10/17/23 09:55 e-Cigarette/Vaping Use Never Used 10/17/23 09:55 Thrive Assessment: Date of Thrive Assessment Date Thrive assessed 07/17/23 10/17/23 09:55 Const General: cooperative, comfortable, no acute distress, alert and awake; No confusion Orientation/consciousness: oriented to person, oriented to place, patient oriented x3 and No confusion HENMT Head: Yes normocephalic Ears: external ears normal and TM's normal bilaterally Face and sinus: No sinus tenderness Mouth: Normal oral and palatal mucosa present and tongue normal Teeth and gingiva: dentition normal and gingiva normal Throat: Yes posterior oropharynx normal, Yes tonsils normal and Yes uvula midline Eyes Conjunctivae: conjunctivae normal Sclerae: sclerae normal Pupils: Equal, round and reactive pupils present EOM: EOMs intact bilaterally Direct Ophthalmoscopy: No no photophobia Neck Neck: Yes no lymphadenopathy, No tender and Yes no JVD Thyroid: Thyroid normal Carotids: no bruits Chest Chest palpation & inspection: no tenderness Resp Effort & Inspection: normal respiratory effort, no audible wheezes, not labored and no stridor Auscultation: no crackles, no rales, no rhonchi and no wheezes Cardio Jugular venous distension: no JVD Rate: regular rate, not bradycardic and not tachycardic Rhythm: regular rhythm Bruits: no carotid bruits Peripheral pulses: Peripheral pulses 2+ throughout GI Inspection: Yes normal to inspection, No abdominal wall ecchymosis and No visible herniation Palpation (GI): Soft to palpation, nontender, no guarding, not rigid and No hepatosplenomegaly present Auscultation: normoactive bowel sounds General: Yes no CVA tenderness Back/Spine/Pelvis Back: no CVA tenderness and No back tenderness Cervical Spine: cervical ROM normal Thoracic/Lumbar Spine: thoracic and lumbar spine normal to inspection, straight leg raise negative bilaterally, No thoraco-lumbar ROM limited and No lumbar spinal tenderness Skin Lesions: no lesions Rashes: no rashes Wounds: no wounds Neuro General: oriented to person, oriented to place, patient oriented x3, CN's II-XI intact bilaterally and No confusion Cranial nerves: Yes Equal, round and reactive pupils present and Yes Normal accommodation reflex present Cognition (Neuro): normal cognition Speech: No Abnormal speech present Gait exam (Neuro): Normal gait present Motor exam (neuro): 5/5 motor strength present throughout Extrem Right upper extremity: full ROM; no cyanosis Left upper extremity: full ROM; no cyanosis Right lower extremity: no edema Left lower extremity: no edema Psych Appearance: grossly normal Mental Status: mental status grossly normal Affect: normal affect Attitude: cooperative Thought process: Normal thought process present Assessment and Plan Assessment & Plan (1) Annual physical exam: Code(s): Z00.00 - Encounter for general adult medical examination without abnormal findings (2) Moderate persistent asthma: Code(s): J45.40 - Moderate persistent asthma, uncomplicated Qualifiers: Asthma complication type: uncomplicated Qualified Code(s): J45.40 - Moderate persistent asthma, uncomplicated Plan: Patient's asthma has been very well controlled 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 Does uses maintenance inhalers and nebulizer treatments at home. Does use prednisone from time to time. (3) GERD (gastroesophageal reflux disease): Code(s): K21.9 - Gastro-esophageal reflux disease without esophagitis Qualifiers: Esophagitis presence: without esophagitis Qualified Code(s): K21.9 - Gastro-esophageal reflux disease without esophagitis Plan: Patient has good symptoms have been stable with current use of PPI therapy. (4) Migraines: Code(s): G43.909 - Migraine, unspecified, not intractable, without status migrainosus Qualifiers: Migraine type: without aura Status migrainosus presence: without status migrainosus Intractability: not intractable Qualified Code(s): G43.009 - Migraine without aura, not intractable, without status migrainosus Plan: Migraines have been fairly well controlled. Does use sumatriptan on an as needed basis for migraine . (5) Colon cancer screening: Code(s): Z12.11 - Encounter for screening for malignant neoplasm of colon Plan: He is due for screening colonoscopy. (6) Lumbar disc disease: Code(s): M51.9 - Unspecified thoracic, thoracolumbar and lumbosacral intervertebral disc disorder Plan: Patient does have a history of lumbar spine disc disease. Of note abdomen pelvis CT in 2014 showing L5-S1 moderate disc bulge. He does report a distant history of a work-related lumbar spine injury to which he did receive cortisone injections that did help reduce his pain for a year though has returned. He currently manages his pain with NSAID use. (7) Impaired glucose metabolism: Code(s): R73.09 - Other abnormal glucose Plan: Patient's most recent random blood sugar elevated at 138. He does report having coffee with sugar. Will check an A1c and fasting blood sugar before next visit. Orders: Orders Hemoglobin A1c Today R73.09 - Other abnormal glucose Prostate Specific Antigen Scr Today J45.40 - Moderate persistent asthma, uncomplicated, Z12.5 - Encounter for screening for malignant neoplasm of prostate Comprehensive [place]. Panel Fast Today R73.09 - Other abnormal glucose Referrals Gastroenterology Referral Z12.11 - Encounter for screening for malignant neoplasm of colon Medications: New prednisone 20 mg PO DAILY 10 days 10 tabs 0RF J45.40 - Moderate persistent asthma, uncomplicated Refilled sumatriptan succinate take 1 tab at onset of headache; if no relief may repeat 1 tab after at least 2 hrs; max = 4 tabs/24 hr PO 30 days 9 tabs 0RF G43.909 - Migraine, unspecified, not intractable, without status migrainosus Coding Level of Care Code Est Pt Prev Care 40-64y(64145) Diagnoses Annual physical exam Z00.00 Moderate persistent asthma without complication J45.40 Asthma complication type: uncomplicated Gastroesophageal reflux disease without esophagitis K21.9 Esophagitis presence: without esophagitis Migraine without aura and without status migrainosus, not intractable G43.009 Migraine type: without aura Status migrainosus presence: without status migrainosus Intractability: not intractable Colon cancer screening Z12.11 Lumbar disc disease M51.9 Impaired glucose metabolism R73.09
[2023-10-17 09:51] VITALS: BP 108/78; PULSE 80; O2SAT 95; BMI 25.6
== END 2023-10-17 10:36 | disposition home or self-care (01) ==
PROVIDERS: PCP Physician Assistant; Visit Provider Physician Assistant
DX: Z00.00 Encounter for general adult medical examination without abnormal findings (principal); J45.40 Moderate persistent asthma, uncomplicated; K21.9 Gastro-esophageal reflux disease without esophagitis; G43.009 Migraine without aura, not intractable, without status migrainosus; Z12.11 Encounter for screening for malignant neoplasm of colon; M51.9 Unspecified thoracic, thoracolumbar and lumbosacral intervertebral disc disorder; R73.09 Other abnormal glucose
CPT/HCPCS: 99396

== ENCOUNTER 2024-03-11 11:28 | Outpatient (AMB) | payer OTHER, SELFPAY ==
--- NOTE | 2024-03-11 11:33 | MHC.PC.OV ---
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 PLAN: Will supply patient with antifungal foot cream. .. Asthma:? Reports his asthma has fairly well controlled.? Occasionally uses prednisone for acute exacerbations. 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 He also uses Singulair which he reports helps some.? Has used maintenance inhalers (Advair and Symbicort)? in the past without much relief of his asthma symptoms.? He reports using Breo which works well to control his asthma though has headaches. .. Borderline high cholesterol: Patient has a history of borderline high total cholesterol. He is willing to get fasting lipid panel done to continue to follow. .. Migraines: Have been well controlled since better control of his asthma. Does seldomly use sumatriptan for migraine . .. GERD:? Has started on daily use of omeprazole which works wonderfully and reducing his GERD symptoms . [facility] Medical History Other chronic pain Abdominal pain Asthma IBS (irritable bowel syndrome) GERD (gastroesophageal reflux disease) Surgical History History of surgery Social History Housing: House Alcohol intake: current Alcohol intake frequency: holidays/special occasions only Alcohol type: beer Patient Tobacco Use Status: Former Tobacco user e-Cigarette/Vaping Use: Never Used Second Hand Smoke Exposure: No service: No Current occupational status: unemployed Current occupational exposures/hazards: No Cognitive needs: No Hearing needs: No Vision needs: Yes (wae glasses) Questionnaire Thrive Questionnaire Date Thrive assessed: 07/17/23 Are you currently unemployed and looking for a job?: Yes JANA-7 AMB Questionnaire JANA-7 Date JANA - 7 assessed: 07/17/23 Source: Developed by Drs. Mark Maynard, Amanda Vásquez, Dinesh Sotne and colleagues, with an educational idania from [employer]. ACT Questionnaire In the past 4 weeks, how much of the time did your asthma keep you from getting as much done at work, school or at home?: None of the time During the past 4 weeks, how often have you had shortness of breath?: 1-2 times a week During the past 4 weeks, how often did your asthma symptoms wake you up at night or earlier than usual in the morning?: Once or twice per week During the past 4 weeks, how often have you had to use your rescue inhaler or nebulizer medication?: Once a week or less How would you rate your asthma control during the past 4 weeks?: Well controlled ACT Interpretation: Positive ACT Branch: Follow up visit scheduled Score: 21 Review of Systems Const Denies headache(s) Eyes Denies loss of vision ENT Denies vertigo, Denies dizziness, Denies headache(s) and Denies sore throat Card Denies chest pain, Denies leg edema and Denies lightheadedness Resp Denies cough, Denies hemoptysis and Denies wheezing GI Denies abdominal pain, Denies melena, Denies constipation, Denies diarrhea and Denies vomiting Denies dysuria, Denies urinary frequency and Denies urinary urgency Musc Denies arthralgias, Denies joint swelling, Denies numbness and Denies tingling Neuro Denies Abnormal speech present, Denies behavioral changes, Denies vertigo, Denies dizziness, Denies headache(s), Denies loss of vision, Denies memory loss, Denies numbness and Denies tingling Psych Denies anxiety, Denies behavioral changes, Denies depression, Denies memory loss and Denies panic attacks Leno/Lymph Denies easy bleeding and Denies easy bruising Aller/Immun Denies wheezing Physical exam (Primary Care) Vital Signs: Last Vital Signs Pulse 77 03/11/24 11:36 BP 108/80 03/11/24 11:36 Pulse Ox 95 03/11/24 11:36 Oxygen Delivery Method Room Air 03/11/24 11:36 BMI result Body Mass Index 25.7 Tobacco/Smoking Status: Tobacco use Status Tobacco use date assessed 07/17/23 03/11/24 11:35 Patient Tobacco Use Status Former Tobacco user 03/11/24 11:35 e-Cigarette/Vaping Use Never Used 03/11/24 11:35 Thrive Assessment: Date of Thrive Assessment Date Thrive assessed 07/17/23 03/11/24 11:35 Const General: healthy appearing, no acute distress, alert and awake Nutritional Appearance: well nourished Orientation/consciousness: oriented to person, oriented to place and oriented to time HENMT Ears: TM's normal bilaterally General nose exam: Normal nasal mucous membranes and turbinates present Eyes Conjunctivae: conjunctivae normal Sclerae: sclerae normal Pupils: Equal, round and reactive pupils present Neck Neck: Yes no lymphadenopathy and Yes no JVD Thyroid: Thyroid normal Carotids: no bruits Resp Effort & Inspection: normal respiratory effort and not tachypneic Auscultation: no crackles, no rales, no rhonchi and no wheezes Cardio Rate: regular rate Rhythm: regular rhythm Heart sounds: no murmurs and normal S1 and S2 GI Palpation (GI): Soft to palpation, nontender, no hepatomegaly and no splenomegaly Auscultation: normal bowel sounds Skin General skin exam: no rashes or lesions noted and dry skin Neuro General: oriented to person, oriented to place and oriented to time Cranial nerves: Yes Equal, round and reactive pupils present Speech: No Abnormal speech present Gait exam (Neuro): Normal gait present Motor exam (neuro): no tremor noted Extrem Right upper extremity: full ROM Left upper extremity: full ROM Right lower extremity: full ROM; no edema Left lower extremity: full ROM; no edema Psych Mental Status: mental status grossly normal Speech and movement: Normal speech and movement present Affect: normal affect Attitude: cooperative Thought process: Normal thought process present Assessment and Plan Assessment & Plan (1) Moderate persistent asthma: Code(s): J45.40 - Moderate persistent asthma, uncomplicated Qualifiers: Asthma complication type: uncomplicated Qualified Code(s): J45.40 - Moderate persistent asthma, uncomplicated Plan: Patient's asthma is fairly well controlled with p.r.n. use of his albuterol inhaler. Also does use prednisone from time to time for acute exacerbations. 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 Has not had any recent hospitalizations due to his asthma. (2) Borderline high cholesterol: Code(s): E78.9 - Disorder of lipoprotein metabolism, unspecified Plan: Does have a history of borderline high cholesterol. Will recheck his fasting lipid panel with goal LDL to remain below 130 (3) Impaired glucose metabolism: Code(s): R73.09 - Other abnormal glucose Plan: Patient does have history of impaired fasting glucose, will check A1c and fasting blood sugar. He will continue working on lifestyle and dietary antifungal foot modifications (4) Tinea pedis: Code(s): B35.3 - Tinea pedis Qualifiers: Laterality: bilateral Qualified Code(s): B35.3 - Tinea pedis Plan: Will supply patient with antifungal cream to use on his feet. Orders: Orders IgE Antibody (Anti-IgE IgG) Today J45.40 - Moderate persistent asthma, uncomplicated Hemoglobin A1c Today R73.09 - Other abnormal glucose Comprehensive [place]. Panel Fast Today R73.09 - Other abnormal glucose Complete Blood Count no Diff Today J45.40 - Moderate persistent asthma, uncomplicated Medications: New prednisone 20 mg PO DAILY 7 days 7 tabs 0RF J45.40 - Moderate persistent asthma, uncomplicated ciclopirox 0.77% 1 appl topical BID 4 weeks 30 grams 1RF B35.3 - Tinea pedis Changed From albuterol sulfate 90 mcg/actuation 2 puffs inhalation Q4-6H PRN 8.5 grams 3RF shortness of breath or wheezing J45.40 - Moderate persistent asthma, uncomplicated To albuterol sulfate 90 mcg/actuation 2 puffs inhalation Q4-6H 90 days PRN 3 inhalers 3RF shortness of breath or wheezing J45.40 - Moderate persistent asthma, uncomplicated Coding Level of Care Code Est Pt Level 4 (39111) Diagnoses Moderate persistent asthma without complication J45.40 Asthma complication type: uncomplicated Borderline high cholesterol E78.9 Impaired glucose metabolism R73.09 Tinea pedis of both feet B35.3 Laterality: bilateral
[2024-03-11 11:36] VITALS: BP 108/80; PULSE 77; O2SAT 95; BMI 25.7
== END 2024-03-11 12:06 | disposition home or self-care (01) ==
PROVIDERS: PCP Physician Assistant; Visit Provider Physician Assistant
DX: J45.40 Moderate persistent asthma, uncomplicated (principal); E78.9 Disorder of lipoprotein metabolism, unspecified; R73.09 Other abnormal glucose; B35.3 Tinea pedis

== ENCOUNTER → 2024-03-11 11:28 | Outpatient (BNVA) | payer OTHER, SELFPAY | PROVIDERS: PCP Physician Assistant; Visit Provider Physician Assistant | DX: J45.40 Moderate persistent asthma, uncomplicated (principal); E78.9 Disorder of lipoprotein metabolism, unspecified; R73.09 Other abnormal glucose; B35.3 Tinea pedis | CPT/HCPCS: 99212 ==

== ENCOUNTER 2024-03-21 09:11 | Outpatient (AMB) | payer OTHER, SELFPAY ==
[2024-03-21 09:13] VITALS: BP 129/90; PULSE 89; BMI 25.6
--- NOTE | 2024-03-21 09:13 | A.OFFVIS_ITS ---
Vital Signs 03/21/24 09:13 Height 5 ft 8 in Weight 168 lb 6.931 oz BMI 25.6 BP 129/90 H Blood Pressure Location Lt brachial Position Sitting Pulse 89 Intake Visit Reasons: Colonoscopy Screening Intake Note: Lv presents as a new patient for colonoscopy screening. CC: Patient states that he used to see Dr. Casper for GERD. He reports occasional epigastric pain and abdominal pain. He has never had a colonoscopy done. He also states that sometimes he feels the food stays stuck in his esophagus. Denies other GI symptoms today. 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 He is [place] by Arnaldo Marion [place] [facility] [place]. PMX Asthma Lumbar degenerative disc disease Migraines Allergic rhinitis Anxiety Cervical radiculitis Impaired glucose tolerance GERD IBS * SURGICAL HISTORY Hand surgery * ALLERGIES: NKDA * [employer] LABS: Laboratory Tests 08/21/23 10/16/23 13:24 10:42 WBC 8.8 Hgb 17.1 Hct 47.5 Plt Count 286 Estimated GFR > 60 Total Bilirubin 0.3 AST 18 ALT 23 Alkaline Phosphatase 68 TSH 0.84 TODAY'S VISIT This is his first colonoscopy. He has been having trouble with pains that is intermittent in the upper abd and in the flanks. This would happen randomly and would last anywhere from 1 hr to all day. It is aching in character, 6/10. It seems to be r/t eating fatty foods like pizza and some steak cuts. He will have occasional diarrhea. He went on a green shake diet for awhile which seemed to help the pain somewhat but it also seem to increase his general gassiness. He did see Dr. Casper and Charlene back in 2013 2014 and prior and has a pre- existing diagnosis of peptic ulcer disease however I can not find the endoscopy as it likely predates our computer. It appears that this diagnosis was given in 2003. He is fairly naive to anesthesia and sedation but has not had trouble with his last hand surgery. Asthma is controlled he denies any cardiac problems. No ID problems. There is no FHX of crc or polyps or Gb disease or food allergies. [facility] Medical History Low back pain Sinus infection Viral gastroenteritis Acute bronchitis Encounter for vasectomy Annual physical exam Screening for diabetes mellitus (DM) Screening for hypercholesterolemia Colon cancer screening Screening for hypothyroidism Other chronic pain Abdominal pain Asthma IBS (irritable bowel syndrome) GERD (gastroesophageal reflux disease) Surgical History History of surgery Social History Housing: House Alcohol intake: current Alcohol intake frequency: holidays/special occasions only Alcohol type: beer Patient Tobacco Use Status: Former Tobacco user e-Cigarette/Vaping Use: Never Used Second Hand Smoke Exposure: No service: No Current occupational status: unemployed Current occupational exposures/hazards: No Cognitive needs: No Hearing needs: No Vision needs: Yes (wae glasses) Review of Systems Const Denies fatigue, Denies fever(s), Denies night sweats, Denies poor appetite, Reports weight gain and Denies weight loss Eyes Details: glasses Reports requires corrective lenses ENT Reports Normal hearing present, Denies dental pain, Denies dysphagia, Denies hearing loss, Denies mouth pain, Denies odynophagia, Denies throat swelling, Denies tongue swelling and Reports other (Dentition adequate) Card Reports no additional complaints Resp Reports no additional complaints GI Details: Reports abdominal pain, Denies melena, Reports bloating, Denies hematochezia, Denies constipation, Denies GI cramping, Denies dysphagia, Denies excessive fla tus, Denies early satiety, Reports heartburn, Denies diarrhea, Reports loose stools, Denies nausea, Denies odynophagia, Denies vomiting and Denies hematemesis Skin/Breast Denies pruritus, Denies lesions, Reports rash (tiny vesicles on arch or foot) and Denies jaundice Neuro Reports Normal hearing present and Denies Abnormal speech present Endo Denies fatigue Aller/Immun Denies throat swelling and Denies tongue swelling Physical Exam Vital Signs: Last Vital Signs Pulse 89 03/21/24 09:13 BP 129/90 H 03/21/24 09:13 BMI result Body Mass Index 25.6 Const General: cooperative, no acute distress, well developed and well groomed Nutritional Appearance: well nourished and obese Orientation/consciousness: oriented to person, oriented to place and oriented to time Limitations: No language barrier HEENT Head: Yes normocephalic and Yes atraumatic Eyes General: appearance normal, both eyes and all related structures Pupils: Equal, round and reactive pupils present Neck Neck: Yes normal visual inspection and Yes no lymphadenopathy Thyroid: Thyroid normal Resp Effort & Inspection: normal respiratory effort and able to speak in complete sentences Auscultation: clear to auscultation bilaterally Cardio Rate: regular rate Rhythm: regular rhythm Heart sounds: Normal, physiologic split S2 sound present Peripheral pulses: radial pulses present and posterior tibial pulses present GI Inspection: No distended, No Abdominal panniculus present and Yes obesity Palpation (GI): Soft to palpation, nontender, no guarding, not rigid and No hepatosplenomegaly present Percussion: Yes normal to percussion Auscultation: normal bowel sounds Rectal Exam - Male: Yes deferred Skin General skin exam: no rashes or lesions noted, turgor normal, skin not dry, no jaundice, No spider nevi and no striae Rashes: no rashes Nails: normal Neuro General: oriented to person, oriented to place and oriented to time Cranial nerves: Yes Equal, round and reactive pupils present and Yes Normal hearing present Speech: No Abnormal speech present Extrem General: Yes normal to inspection, No clubbing, No cyanosis and No edema Psych Appearance: grossly normal and well kempt Mental Status: mental status grossly normal Speech and movement: Normal speech and movement present Affect: normal affect Attitude: cooperative Thought process: Normal thought process present and not confabulating Thought content: Normal thought content present Insight: Fair insight present (Psych) Judgement: Fair judgement present (Psych) Assessment & Plan Assessment & Plan (1) Pre-op examination: Code(s): Z01.818 - Encounter for other preprocedural examination Category: Medical (2) Moderate persistent asthma: Code(s): J45.40 - Moderate persistent asthma, uncomplicated Category: Medical Qualifiers: Asthma complication type: uncomplicated Qualified Code(s): J45.40 - Moderate persistent asthma, uncomplicated (3) Upper abdominal pain: Code(s): R10.10 - Upper abdominal pain, unspecified Category: Medical Plan This is his first colonoscopy. He has been having trouble with pains that is intermittent in the upper abd and in the flanks. This would happen randomly and would last anywhere from 1 hr to all day. It is aching in character, 11/25. It seems to be r/t eating fatty foods like pizza and some steak cuts. He will have occasional diarrhea. He went on a green shake diet for awhile which seemed to help the pain somewhat but it also seem to increase his general gassiness. He did see Dr. Casper and Charlene back in 2013 2014 and prior and has a pre- existing diagnosis of peptic ulcer disease however I can not find the endoscopy as it likely predates our computer. It appears that this diagnosis was given in 2003. He is fairly naive to anesthesia and sedation but has not had trouble with his last hand surgery. Asthma is controlled he denies any cardiac problems. No ID problems. There is no FHX of crc or polyps or Gb disease or food allergies. Orders: Orders US abdomen complete Today R10.10 - Upper abdominal pain, unspecified, Z01.818 - Encounter for other preprocedural examination EGD/[place] Combo - GI Use Only Today R10.10 - Upper abdominal pain, unspecified, Z01.818 - Encounter for other preprocedural examination H pylori Ag Stool Today R10.10 - Upper abdominal pain, unspecified, Z01.818 - Encounter for other preprocedural examination Pancreatic Elastase-1 Today R10.10 - Upper abdominal pain, unspecified, Z01.818 - Encounter for other preprocedural examination Colonoscopy - GI Use Only Today J45.40 - Moderate persistent asthma, uncomplicated, Z01.818 - Encounter for other preprocedural examination Medications: New peg 3350-electrolytes 236-22.74-6.74 -5.86 gram (Golytely) until fecal effluent is clear; do not exceed a total volume of 2,000 mL 240 mL PO Q10M 4,000 mL 0RF 1 day Z12.11 - Encounter for screening for malignant neoplasm of colon bisacodyl (Dulcolax (bisacodyl)) 10 mg (2 x 5 mg) PO BEDTIME 4 tabs 0RF 2 days Coding Level of Care Code New Pt Level 3 (61396) Diagnoses Pre-op examination Z01.818 Moderate persistent asthma without complication J45.40 Asthma complication type: uncomplicated Upper abdominal pain R10.10
== END 2024-03-21 10:07 | disposition home or self-care (01) ==
PROVIDERS: PCP Physician Assistant; Visit Provider Nurse Practitioner
DX: R10.10 Upper abdominal pain, unspecified (principal); Z12.11 Encounter for screening for malignant neoplasm of colon; J45.40 Moderate persistent asthma, uncomplicated
CPT/HCPCS: 99203

== ENCOUNTER → 2024-03-21 09:11 | Outpatient (BNVA) | payer OTHER, SELFPAY | PROVIDERS: PCP Physician Assistant; Visit Provider Nurse Practitioner ==

== ENCOUNTER 2024-03-28 08:20 | Outpatient (REF) | payer OTHER, SELFPAY ==
--- NOTE | ~2024-03-28 | US_ITS ---
EXAMINATION: US ABDOMEN COMPLETE CLINICAL INFORMATION: Upper abdominal pain, unspecified. COMPARISON: CT abdomen and pelvis 06/13/2015. Ultrasound abdomen 10/16/2013. TECHNIQUE: Real-time imaging of the abdominal viscera. FINDINGS: PANCREAS: The visualized pancreas appears unremarkable but the pancreatic tail is obscured by bowel gas. ABDOMINAL AORTA: The proximal, mid, and distal segments are normal in caliber. INFERIOR VENA CAVA: Visualized portions are normal. LIVER: The liver is normal in size. The liver contour is normal. There is mildly increased liver parenchymal echogenicity suggesting hepatic steatosis. No focal hepatic lesion. There is no intrahepatic biliary duct dilatation seen. GALLBLADDER: The gallbladder is physiologically distended without evidence of stones, sludge, polyps, wall thickening or pericholecystic fluid. COMMON BILE DUCT: Normal in caliber measuring 0.6 cm in diameter. RIGHT KIDNEY: No hydronephrosis. No renal calculi or focal parenchymal lesions. The kidney measures 10.7 cm in maximum dimension. LEFT KIDNEY: No hydronephrosis. No renal calculi or focal parenchymal lesions. The kidney measures 10.7 cm in maximum dimension. SPLEEN: The spleen measures 7.4 cm in maximum dimension. FREE FLUID: None. US/US abdomen complete IMPRESSION: Mildly increased hepatic echogenicity suggesting hepatic steatosis. Electronically signed by: Fred Reyes MD 05/23/2024 01:40 PM [facility] [place], [place]
== END 2024-03-28 08:21 | disposition home or self-care (01) ==
LOC: HO.US 08:20
PROVIDERS: PCP Physician Assistant; Visit Provider Nurse Practitioner
DX: Z01.818 Encounter for other preprocedural examination (principal); R10.10 Upper abdominal pain, unspecified
CPT/HCPCS: 76700

== ENCOUNTER 2024-05-30 10:25 | Outpatient (AMB) | payer OTHER, SELFPAY ==
[2024-05-30 10:30] VITALS: BP 105/69; PULSE 83; BMI 25.9
--- NOTE | 2024-05-30 10:30 | A.OFFVIS_ITS ---
Vital Signs 05/30/24 10:30 Height 5 ft 8 in Weight 170 lb 3.15 oz BMI 25.9 BP 105/69 Blood Pressure Location Rt brachial Position Sitting Pulse 83 Intake Visit Reasons: 8 week follow up Intake Note: Lv returns to in office follow up of US. CC: Patient reports doing pretty good , he states that when he eats greasy foods he gets heartburn and acid reflux. Per patient he forgot to have labs ordered at last visit done. 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 Accompanied by: Self / Same As Patient Allergies No Known Allergies [NO KNOWN ALLERGIES] Allergy (Unknown, Verified 05/30/24 10:40) UNKNOWN HPI HPI 8 week follow up: Details: Assessment & Plan (1) Pre-op examination: Code(s): Z01.818 - Encounter for other preprocedural examination Category: Medical (2) Moderate persistent asthma: Code(s): J45.40 - Moderate persistent asthma, uncomplicated Category: Medical Qualifiers: Asthma complication type: uncomplicated Qualified Code(s): J45.40 - Moderate persistent asthma, uncomplicated (3) Upper abdominal pain: Code(s): R10.10 - Upper abdominal pain, unspecified Category: Medical Plan This is his first colonoscopy. He has been having trouble with pains that is intermittent in the upper abd and in the flanks. This would happen randomly and would last anywhere from 1 hr to all day. It is aching in character, 6/10. It seems to be r/t eating fatty foods like pizza and some steak cuts. He will have occasional diarrhea. He went on a green shake diet for awhile which seemed to help the pain somewhat but it also seem to increase his general gassiness. He did see Dr. Butler back in 2013 2014 and prior and has a pre- existing diagnosis of peptic ulcer disease however I can not find the endoscopy as it likely predates our computer. It appears that this diagnosis was given in 2003. He is fairly naive to anesthesia and sedation but has not had trouble with his last hand surgery. Asthma is controlled he denies any cardiac problems. No ID problems. There is no FHX of crc or polyps or Gb disease or food allergies. Orders: Orders US abdomen complete Today R10.10 - Upper abdominal pain, unspecified, Z01.818 - Encounter for other preprocedural examination EGD/[place] Combo - GI Use Only Today R10.10 - Upper abdominal pain, unspecified, Z01.818 - Encounter for other preprocedural examination H pylori Ag Stool Today R10.10 - Upper abdominal pain, unspecified, Z01.818 - Encounter for other preprocedural examination Pancreatic Elastase-1 Today R10.10 - Upper abdominal pain, unspecified, Z01.818 - Encounter for other preprocedural examination Colonoscopy - GI Use Only Today J45.40 - Moderate persistent asthma, uncomplicated, Z01.818 - Encounter for other preprocedural examination Medications: New peg 3350-electrolytes 236-22.74-6.74 -5.86 gram (Golytely) until fecal effluent is clear; do not exceed a total volume of 2,000 mL 240 mL PO Q10M 4,000 mL 0RF 1 day Z12.11 - Encounter for screening for malignant neoplasm of colon bisacodyl (Dulcolax (bisacodyl)) 10 mg (2 x 5 mg) PO BEDTIME 4 tabs 0RF 2 days LABS not obtained US [facility] 05/23/24 FINDINGS: PANCREAS: The visualized pancreas appears unremarkable but the pancreatic tail is obscured by bowel gas. ABDOMINAL AORTA: The proximal, mid, and distal segments are normal in caliber. INFERIOR VENA CAVA: Visualized portions are normal. LIVER: The liver is normal in size. The liver contour is normal. There is mildly increased liver parenchymal echogenicity suggesting hepatic steatosis. No focal hepatic lesion. There is no intrahepatic biliary duct dilatation seen. GALLBLADDER: The gallbladder is physiologically distended without evidence of stones, sludge, polyps, wall thickening or pericholecystic fluid. COMMON BILE DUCT: Normal in caliber measuring 0.6 cm in diameter. RIGHT KIDNEY: No hydronephrosis. No renal calculi or focal parenchymal lesions. The kidney measures 10.7 cm in maximum dimension. LEFT KIDNEY: No hydronephrosis. No renal calculi or focal parenchymal lesions. The kidney measures 10.7 cm in maximum dimension. SPLEEN: The spleen measures 7.4 cm in maximum dimension. FREE FLUID: None. US/US abdomen complete IMPRESSION: Mildly increased hepatic echogenicity suggesting hepatic steatosis. EGD/COLONOSCOPY not yet scheduled BIOPSY TODAYS VISIT Sx continue but are not worse and infrequent with his green shakes. No reason found on US. I encourage him to do the stool samples. ROV after procedures. Can call for appt if sx worsen. [facility] Medical History Pre-op examination Low back pain Sinus infection Viral gastroenteritis Acute bronchitis Encounter for vasectomy Annual physical exam Screening for diabetes mellitus (DM) Screening for hypercholesterolemia Colon cancer screening Screening for hypothyroidism Other chronic pain Abdominal pain Asthma IBS (irritable bowel syndrome) GERD (gastroesophageal reflux disease) Surgical History History of surgery Social History Housing: House Alcohol intake: current Alcohol intake frequency: holidays/special occasions only Alcohol type: beer Patient Tobacco Use Status: Former Tobacco user e-Cigarette/Vaping Use: Never Used Second Hand Smoke Exposure: No service: No Current occupational status: unemployed Current occupational exposures/hazards: No Cognitive needs: No Hearing needs: No Vision needs: Yes (wae glasses) Review of Systems Const Denies fatigue, Denies fever(s), Denies night sweats, Denies poor appetite and Denies weight loss ENT Reports Normal hearing present, Denies dental pain, Denies dysphagia, Denies hearing loss, Denies mouth pain, Denies odynophagia, Denies throat swelling, Denies tongue swelling and Reports other (Dentition adequate) Card Reports no additional complaints Resp Reports no additional complaints GI Details: Reports abdominal pain, Denies melena, Reports bloating, Denies hematochezia, Denies constipation, Denies GI cramping, Denies dysphagia, Denies excessive flatus, Denies early satiety, Denies heartburn, Denies diarrhea, Denies nausea, Denies odynophagia, Denies vomiting and Denies hematemesis Skin/Breast Denies pruritus, Denies lesions, Denies rash and Denies jaundice Neuro Reports Normal hearing present and Denies Abnormal speech present Endo Denies fatigue Aller/Immun Denies throat swelling and Denies tongue swelling Physical Exam Vital Signs: Last Vital Signs Pulse 83 05/30/24 10:30 BP 105/69 05/30/24 10:30 BMI result Body Mass Index 25.9 Const General: cooperative, no acute distress, well developed and well groomed Nutritional Appearance: average body habitus and well nourished Orientation/consciousness: oriented to person, oriented to place and oriented to time Limitations: No language barrier HEENT Head: Yes normocephalic and Yes atraumatic Eyes General: appearance normal, both eyes and all related structures Pupils: Equal, round and reactive pupils present Neck Neck: Yes normal visual inspection and Yes no lymphadenopathy Thyroid: Thyroid normal Resp Effort & Inspection: normal respiratory effort and able to speak in complete sentences Auscultation: clear to auscultation bilaterally Cardio Rate: regular rate Rhythm: regular rhythm Heart sounds: Normal, physiologic split S2 sound present Peripheral pulses: radial pulses present and posterior tibial pulses present GI Inspection: No distended and No Abdominal panniculus present Palpation (GI): Soft to palpation, nontender, no guarding, not rigid and No hepatosplenomegaly present Percussion: Yes normal to percussion Auscultation: normal bowel sounds Rectal Exam - Male: Yes deferred Skin General skin exam: no rashes or lesions noted, turgor normal, skin not dry, no jaundice, No spider nevi and no striae Rashes: no rashes Nails: normal Neuro General: oriented to person, oriented to place and oriented to time Cranial nerves: Yes Equal, round and reactive pupils present and Yes Normal hearing present Speech: No Abnormal speech present Extrem General: Yes normal to inspection, No clubbing, No cyanosis and No edema Psych Appearance: grossly normal and well kempt Mental Status: mental status grossly normal Speech and movement: Normal speech and movement present Affect: normal affect Attitude: cooperative Thought process: Normal thought process present and not confabulating Thought content: Normal thought content present Insight: Fair insight present (Psych) Judgement: Fair judgement present (Psych) Results Reviewed Results Reviewed: US ABD 05/23/24 FINDINGS: PANCREAS: The visualized pancreas appears unremarkable but the pancreatic tail is obscured by bowel gas. ABDOMINAL AORTA: The proximal, mid, and distal segments are normal in caliber. INFERIOR VENA CAVA: Visualized portions are normal. LIVER: The liver is normal in size. The liver contour is normal. There is mildly increased liver parenchymal echogenicity suggesting hepatic steatosis. No focal hepatic lesion. There is no intrahepatic biliary duct dilatation seen. GALLBLADDER: The gallbladder is physiologically distended without evidence of stones, sludge, polyps, wall thickening or pericholecystic fluid. COMMON BILE DUCT: Normal in caliber measuring 0.6 cm in diameter. RIGHT KIDNEY: No hydronephrosis. No renal calculi or focal parenchymal lesions. The kidney measures 10.7 cm in maximum dimension. LEFT KIDNEY: No hydronephrosis. No renal calculi or focal parenchymal lesions. The kidney measures 10.7 cm in maximum dimension. SPLEEN: The spleen measures 7.4 cm in maximum dimension. FREE FLUID: None. US/US abdomen complete IMPRESSION: Mildly increased hepatic echogenicity suggesting hepatic steatosis. Assessment & Plan Assessment & Plan (1) Upper abdominal pain: Code(s): R10.10 - Upper abdominal pain, unspecified Category: Medical (2) GERD (gastroesophageal reflux disease): Code(s): K21.9 - Gastro-esophageal reflux disease without esophagitis Category: Medical Qualifiers: Esophagitis presence: without esophagitis Qualified Code(s): K21.9 - Gastro-esophageal reflux disease without esophagitis Plan Sx continue but are not worse and infrequent with his green shakes. No reason found on US. I encourage him to do the stool samples. ROV after procedures. Can call for appt if sx worsen. EGD/COLONOSCOPY not yet scheduled BIOPSY Coding Level of Care Code Est Pt Level 3 (63896) Diagnoses Upper abdominal pain R10.10 Gastroesophageal reflux disease without esophagitis K21.9 Esophagitis presence: without esophagitis
== END 2024-05-30 11:12 | disposition home or self-care (01) ==
PROVIDERS: PCP Physician Assistant; Visit Provider Nurse Practitioner
DX: R10.10 Upper abdominal pain, unspecified (principal); K21.9 Gastro-esophageal reflux disease without esophagitis
CPT/HCPCS: 99213

== ENCOUNTER → 2024-05-30 10:25 | Outpatient (BNVA) | payer OTHER, SELFPAY | PROVIDERS: PCP Physician Assistant; Visit Provider Nurse Practitioner ==

== ENCOUNTER 2024-07-03 14:05 | Outpatient (AMB) | payer OTHER, SELFPAY ==
--- NOTE | 2024-07-03 14:13 | A.OFFPC_ITS ---
Vital Signs 07/03/24 14:14 Height 5 ft 8 in Weight 169 lb 6 oz BMI 25.8 BP 110/78 Blood Pressure Location Lt brachial Position Sitting Pulse 87 Pulse Source Pulse Oximeter Temp 97.3 F Temp Source Skin Pulse Oximetry (%) 97 Oxygen Delivery Method Room Air Intake Visit Reasons: R/S from 06/19/24-Asthma FU Intake Note: Patient is here to follow up on Asthma. Pt decline flu shot today. 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 Accompanied by: Self / Same As Patient Allergies No Known Allergies [NO KNOWN ALLERGIES] Allergy (Unknown, Verified 07/03/24 14:42) UNKNOWN Medication List - Last Reconciled 07/03/24 by Arnaldo Marion PA-C acetaminophen ER (Tylenol Arthritis Pain) 650 mg PO Q12H 30 days albuterol sulfate 2.5 mg (3 mL) inhalation Q6H PRN 30 days albuterol sulfate 90 mcg/actuation 2 puffs inhalation Q4-6H PRN 90 days bisacodyl (Dulcolax (bisacodyl)) 10 mg (2 x 5 mg) PO BEDTIME 2 days ciclopirox 0.77% 1 appl topical BID 4 weeks cyclobenzaprine 10 mg PO BEDTIME PRN lorazepam 0.5 mg PO BID PRN 4 days meloxicam 15 mg PO DAILY 15 days montelukast 10 mg PO BEDTIME omeprazole 20 mg PO DAILY 90 days peg 3350-electrolytes 236-22.74-6.74 -5.86 gram (Golytely) 240 mL PO Q10M 1 day sumatriptan succinate take 1 tab at onset of headache; if no relief may repeat 1 tab after at least 2 hrs; max = 4 tabs/24 hr PO 30 days Tobacco use date assessed: 07/03/24 Dental Screening Dental Screen Date: 07/03/24 Did you have a dental visit in the last 12 months?: Yes Did you have a dental problem in the last 6 months where you did not have access to dental care?: No Was dental information given to patient?: Patient has dentist HPI R/S from 06/19/24-Asthma FU HPI Details Patient is a 54 -year-old male here today for follow-up visit ?Patient has a past medical history significant for moderate persistent asthma, migraines, GERD .. Asthma:? Reports his asthma has fairly well controlled.? Occasionally uses prednisone for acute exacerbations. 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 He also uses Singulair which he reports helps some.? Has used maintenance inhalers (Advair and Symbicort)? in the past without much relief of his asthma symptoms.? He reports using Breo which works well to control his asthma though has headaches. .. Borderline high cholesterol: Patient has a history of borderline high total cholesterol. He is willing to get fasting lipid panel done to continue to follow. .. Migraines: Have been well controlled since better control of his asthma. Does seldomly use sumatriptan for migraine . .. GERD:? Has started on daily use of omeprazole which works wonderfully and reducing his GERD symptoms . [facility] Medical History (Updated 07/07/24 @ 07:32 by Arnaldo Marion PA-C) Lumbar disc disease Hand arthritis Cervical radiculitis Pre-op examination Low back pain Sinus infection Viral gastroenteritis Acute bronchitis Encounter for vasectomy Annual physical exam Screening for diabetes mellitus (DM) Screening for hypercholesterolemia Colon cancer screening Screening for hypothyroidism Other chronic pain Abdominal pain Asthma IBS (irritable bowel syndrome) GERD (gastroesophageal reflux disease) Surgical History History of surgery Social History Housing: House Alcohol intake: current Alcohol intake frequency: holidays/special occasions only Alcohol type: beer Patient Tobacco Use Status: Former Tobacco user e-Cigarette/Vaping Use: Never Used Second Hand Smoke Exposure: Yes service: No Current occupational status: unemployed Current occupational exposures/hazards: No Cognitive needs: No Hearing needs: No Vision needs: Yes (wae glasses) Questionnaire PHQ-9 Over the last 2 weeks, how often have you been bothered by any of the following problems? 1. Little interest or pleasure in doing things: not at all 2. Feeling down, depressed, or hopeless: not at all 3. Trouble falling or staying asleep, or sleeping too much: not at all 4. Feeling tired or having little energy: not at all 5. Poor appetite or overeating: not at all 6. Feeling bad about yourself - or that you are a failure or have let yourself or your family down: not at all 7. Trouble concentrating on things, such as reading the newspaper or watching television: not at all 8. Moving or speaking so slowly that other people could have noticed. Or the opposite - being so fidgety or restless that you have been moving around a lot more than usual: not at all 9. Thoughts that you would be better off or of hurting yourself in some way: not at all Total score: 0 Depression Screening Interpretation: Negative Depression Screening Done: Yes 71972 - PHQ-9 Billing: Yes Source: Developed by Drs. Mark Maynard, Amanda Vásquez, Dinesh Stone and colleagues, with an educational idania from [employer] Thrive Questionnaire Date Thrive assessed: 07/03/24 I am a: Patient What is your living situation today?: I have a steady place to live Within the past 12 months, did the food you bought not last and you didn't have the money to get more?: Never true Within the past 12 months, did you worry whether your food would run out before you got money to buy more?: Never true Do you have trouble paying for medicines?: No Do you have trouble getting transportation to medical appointments?: No Do you have trouble paying your heating and electricity bill?: No Do you have trouble taking care of your child, family member or friend?: No Do you have trouble with day-to-day activities such as bathing, preparing meals, shopping, managing finances, etc.?: No Are you currently unemployed and looking for a job?: Yes Are you interested in more education?: No Please select the resources that you would like help with: None Currently or been in a relationship where the following occur: No concerns reported THRIVE Score: 0 AUDIT C Alcohol Use Questionnaire (AUDIT-C) 1. How often do you have a drink containing alcohol?: Monthly or less 2. How many drinks containing alcohol do you have on a typical day when you are drinking?: 1 or 2 3. How often do you have six or more drinks on one occasion?: Never Total Score: 1 JANA-7 AMB Questionnaire JANA-7 Date JANA - 7 assessed: 07/03/24 Feeling nervous, anxious, or on edge: 0 = Not at all Not being able to stop or control worryin = Not at all Worrying too much about different things: 0 = Not at all Trouble relaxin = Not at all Being so restless that it is hard to sit still: 0 = Not at all Becoming easily annoyed or irritable: 0 = Not at all Feeling afraid as if something awful might happen: 0 = Not at all Total JANA-7 score (0-4 normal; 5-9 mild; 10-14 moderate; 15-21 severe): 0 Source: Developed by Drs. Mark Maynard, Amanda Vásquez, Dinesh Stone and colleagues, with an educational idania from [employer] JANA-7 Assessment Billing JANA-7 Assessment Tool: JANA-7 Assessment 29182 ACT Questionnaire In the past 4 weeks, how much of the time did your asthma keep you from getting as much done at work, school or at home?: None of the time During the past 4 weeks, how often have you had shortness of breath?: 1-2 times a week During the past 4 weeks, how often did your asthma symptoms wake you up at night or earlier than usual in the morning?: Once or twice per week During the past 4 weeks, how often have you had to use your rescue inhaler or nebulizer medication?: Once a week or less How would you rate your asthma control during the past 4 weeks?: Well controlled ACT Interpretation: Negative Score: 21 Review of Systems Const Denies headache(s) Eyes Denies loss of vision ENT Denies vertigo, Denies dizziness, Denies headache(s) and Denies sore throat Card Denies chest pain, Denies leg edema and Denies lightheadedness Resp Denies cough, Denies hemoptysis and Denies wheezing GI Denies abdominal pain, Denies melena, Denies constipation, Denies diarrhea and Denies vomiting Denies dysuria, Denies urinary frequency and Denies urinary urgency Musc Denies arthralgias, Denies joint swelling, Denies numbness and Denies tingling Neuro Denies Abnormal speech present, Denies behavioral changes, Denies vertigo, Denies dizziness, Denies headache(s), Denies loss of vision, Denies memory loss, Denies numbness and Denies tingling Psych Denies anxiety, Denies behavioral changes, Denies depression, Denies memory loss and Denies panic attacks Leno/Lymph Denies easy bleeding and Denies easy bruising Aller/Immun Denies wheezing Physical exam (Primary Care) Vital Signs: Last Vital Signs Temp 97.3 F 07/03/24 14:14 Pulse 87 07/03/24 14:14 BP 110/78 07/03/24 14:14 Pulse Ox 97 07/03/24 14:14 Oxygen Delivery Method Room Air 07/03/24 14:14 BMI result Body Mass Index 25.8 Tobacco/Smoking Status: Tobacco use Status Tobacco use date assessed 07/03/24 07/03/24 14:19 Patient Tobacco Use Status Former Tobacco user 07/03/24 14:19 e-Cigarette/Vaping Use Never Used 07/03/24 14:19 PHQ-9: PHQ-9 Score PHQ-9: Total score 0 07/03/24 14:43 Depression Screening Interpretation: Negative Thrive Assessment: Date of Thrive Assessment Date Thrive assessed 07/03/24 07/03/24 14:19 Currently or been in a relationship where the following occur: No concerns reported Const General: healthy appearing, no acute distress, alert and awake Nutritional Appearance: well nourished Orientation/consciousness: oriented to person, oriented to place and oriented to time HENMT Ears: TM's normal bilaterally General nose exam: Normal nasal mucous membranes and turbinates present Eyes Conjunctivae: conjunctivae normal Sclerae: sclerae normal Pupils: Equal, round and reactive pupils present Neck Neck: Yes no lymphadenopathy and Yes no JVD Thyroid: Thyroid normal Carotids: no bruits Resp Effort & Inspection: normal respiratory effort and not tachypneic Auscultation: no crackles, no rales, no rhonchi and no wheezes Cardio Rate: regular rate Rhythm: regular rhythm Heart sounds: no murmurs and normal S1 and S2 GI Palpation (GI): Soft to palpation, nontender, no hepatomegaly and no splenomegaly Auscultation: normal bowel sounds Skin General skin exam: no rashes or lesions noted and dry skin Neuro General: oriented to person, oriented to place and oriented to time Cranial nerves: Yes Equal, round and reactive pupils present Speech: No Abnormal speech present Gait exam (Neuro): Normal gait present Motor exam (neuro): no tremor noted Extrem Right upper extremity: full ROM Left upper extremity: full ROM Right lower extremity: full ROM; no edema Left lower extremity: full ROM; no edema Psych Mental Status: mental status grossly normal Speech and movement: Normal speech and movement present Affect: normal affect Attitude: cooperative Thought process: Normal thought process present Coding Level of Care Code Est Pt Level 4 (87481) Diagnoses Moderate persistent asthma without complication J45.40 Asthma complication type: uncomplicated Borderline high cholesterol E78.9 Impaired glucose metabolism R73.09 Additional Codes PHQ-9 - 71909 - PHQ-9 Billing: Yes ([id number]) JANA-7 Assessment Billing - JANA-7 Assessment Tool: JANA-7 Assessment 90328 ([id number]) Asthma Control Questionnaire - ACT Interpretation: Negative ([id number]) Assessment & Plan Assessment & Plan (1) Moderate persistent asthma: Code(s): J45.40 - Moderate persistent asthma, uncomplicated Category: Medical Qualifiers: Asthma complication type: uncomplicated Qualified Code(s): J45.40 - Moderate persistent asthma, uncomplicated Plan: As per HPI patient's asthma is fairly well controlled. His asthma worsens to do environmental factors at his job place. He does use prednisone from time to time for acute exacerbations. Otherwise he uses his albuterol inhaler on an as needed basis. He has had maintenance inhalers in the past though have not been effective and caused side effects of dizziness. (2) Borderline high cholesterol: Code(s): E78.9 - Disorder of lipoprotein metabolism, unspecified Category: Medical Plan: Patient has a history of borderline high total cholesterol. Will continue to follow fasting lipid panel. He will work on lifestyle and dietary modifications. Goal total cholesterol to be below 200 (3) Impaired glucose metabolism: Code(s): R73.09 - Other abnormal glucose Category: Medical Plan: Patient does have a history of impaired glucose metabolism. Again working on dietary modifications. Goal A1c is to remain below 6.5 Medications: New prednisone 20 mg PO DAILY 7 tabs 0RF 7 days J45.40 - Moderate persistent asthma, uncomplicated Refilled omeprazole 20 mg PO DAILY 90 caps 2RF 90 days J45.40 - Moderate persistent asthma, uncomplicated, K21.9 - Gastro-esophageal reflux disease without esophagitis albuterol sulfate 90 mcg/actuation 2 puffs inhalation Q4-6H PRN 3 inhalers 3RF shortness of breath or wheezing 90 days J45.40 - Moderate persistent asthma, uncomplicated Discontinued lorazepam Discontinued Reason: Doctor's Order 0.5 mg PO BID 4 days PRN 8 tabs 0RF anxiety F41.9 - Anxiety disorder, unspecified Patient Instructions: Goal: Total cholesterol to be below 200, A1c to be below 6.5. Control asthma Barriers: Adherence to physical activity and healthy eating habits
[2024-07-03 14:14] VITALS: BP 110/78; PULSE 87; TEMP 36.3; O2SAT 97; BMI 25.8
== END 2024-07-03 15:05 | disposition home or self-care (01) ==
PROVIDERS: PCP Physician Assistant; Visit Provider Physician Assistant
DX: J45.40 Moderate persistent asthma, uncomplicated (principal); E78.9 Disorder of lipoprotein metabolism, unspecified; R73.09 Other abnormal glucose

== ENCOUNTER → 2024-07-03 14:05 | Outpatient (BNVA) | payer OTHER, SELFPAY | PROVIDERS: PCP Physician Assistant; Visit Provider Physician Assistant | DX: J45.40 Moderate persistent asthma, uncomplicated (principal); E78.9 Disorder of lipoprotein metabolism, unspecified; R73.09 Other abnormal glucose; K21.9 Gastro-esophageal reflux disease without esophagitis; G43.909 Migraine, unspecified, not intractable, without status migrainosus; Z79.899 Other long term (current) drug therapy | CPT/HCPCS: 96127; 96160 ==

== ENCOUNTER 2024-09-11 13:50 | Outpatient (AMB) | payer OTHER, SELFPAY ==
--- NOTE | 2024-09-11 13:53 | A.OFFPC_ITS ---
Vital Signs 09/11/24 14:14 Height 5 ft 8 in Weight 172 lb 8 oz BMI 26.2 BP 136/90 H Blood Pressure Location Lt brachial Position Sitting Pulse 78 Pulse Source Pulse Oximeter Temp 97.1 F Temp Source Temporal Artery Scan Pulse Oximetry (%) 98 Oxygen Delivery Method Room Air Intake Visit Reasons: [facility] 09/09 Chest pain / high bp Allergies No Known Allergies [NO KNOWN ALLERGIES] Allergy (Unknown, Verified 09/11/24 14:32) UNKNOWN Medication List - Last Reconciled 09/11/24 by Arnaldo Marion PA-C acetaminophen ER (Tylenol Arthritis Pain) 650 mg PO Q12H 30 days albuterol sulfate 2.5 mg (3 mL) inhalation Q6H PRN 30 days albuterol sulfate 90 mcg/actuation 2 puffs inhalation Q4-6H PRN 90 days bisacodyl (Dulcolax (bisacodyl)) 10 mg (2 x 5 mg) PO BEDTIME 2 days ciclopirox 0.77% 1 appl topical BID 4 weeks cyclobenzaprine 10 mg PO BEDTIME PRN meloxicam 15 mg PO DAILY 15 days montelukast 10 mg PO BEDTIME omeprazole 20 mg PO DAILY 90 days peg 3350-electrolytes 236-22.74-6.74 -5.86 gram (Golytely) 240 mL PO Q10M 1 day prednisone 20 mg PO DAILY 7 days sumatriptan succinate take 1 tab at onset of headache; if no relief may repeat 1 tab after at least 2 hrs; max = 4 tabs/24 hr PO 30 days Tobacco use date assessed: 07/03/24 Dental Screening Dental Screen Date: 07/03/24 HPI [facility] 09/09 Chest pain / high bp HPI Details The patient is a 54-year-old male presenting with follow-up for hypertension and anxiety. He reports his blood pressure was elevated during a recent emergency visit, where initial readings were approximately 160/xx mmHg. Current readings are 136/90 mmHg. He associates his hypertension with stress and anxiety and has a history of anxiety manifesting as chest tightness, for which he took unspecified medications in the past. After quitting smoking and switching to vaping, he continues to experience anxiety symptoms. He recounts past evaluations including EKG and cardiac markers which ruled out acute cardiac issues. The patient's previous hospital tests showed no potassium abnormalities, though a prior episode was noted in his history. No high salt or caffeine intake was identified as contributing to his conditions. [facility] Medical History (Updated 09/11/24 @ 14:36 by Arnaldo Marion PA-C) Lumbar disc disease Hand arthritis Cervical radiculitis Pre-op examination Low back pain Sinus infection Viral gastroenteritis Acute bronchitis Encounter for vasectomy Annual physical exam Screening for diabetes mellitus (DM) Screening for hypercholesterolemia Colon cancer screening Screening for hypothyroidism Other chronic pain Abdominal pain Asthma IBS (irritable bowel syndrome) GERD (gastroesophageal reflux disease) Surgical History History of surgery Social History Housing: House Alcohol intake: current Alcohol intake frequency: holidays/special occasions only Alcohol type: beer Patient Tobacco Use Status: Former Tobacco user e-Cigarette/Vaping Use: Never Used Second Hand Smoke Exposure: Yes service: No Current occupational status: unemployed Current occupational exposures/hazards: No Cognitive needs: No Hearing needs: No Vision needs: Yes (wae glasses) Questionnaire Thrive Questionnaire Date Thrive assessed: 07/03/24 JANA-7 AMB Questionnaire JANA-7 Date JANA - 7 assessed: 07/03/24 Source: Developed by Drs. Mark Maynard, Amanda Vásquez, Dinesh Stone and colleagues, with an educational idania from [employer]. Review of Systems Const Denies headache(s) Eyes Denies loss of vision ENT Denies vertigo, Denies dizziness, Denies headache(s) and Denies sore throat Card Denies chest pain, Reports chest pain at rest, Denies leg edema and Denies lightheadedness Resp Denies cough, Denies hemoptysis and Denies wheezing GI Denies abdominal pain, Denies melena, Denies constipation, Denies diarrhea and Denies vomiting Denies dysuria, Denies urinary frequency and Denies urinary urgency Musc Denies arthralgias, Denies joint swelling, Denies numbness and Denies tingling Neuro Denies Abnormal speech present, Denies behavioral changes, Denies vertigo, Denies dizziness, Denies headache(s), Denies loss of vision, Denies memory loss, Denies numbness and Denies tingling Psych Denies anxiety, Denies behavioral changes, Denies depression, Denies memory loss and Denies panic attacks Leno/Lymph Denies easy bleeding and Denies easy bruising Aller/Immun Denies wheezing Physical exam (Primary Care) Vital Signs: Last Vital Signs Temp 97.1 F 09/11/24 14:14 Pulse 78 09/11/24 14:14 BP 136/90 H 09/11/24 14:14 Pulse Ox 98 09/11/24 14:14 Oxygen Delivery Method Room Air 09/11/24 14:14 BMI result Body Mass Index 26.2 Tobacco/Smoking Status: Tobacco use Status Tobacco use date assessed 07/03/24 09/11/24 13:53 Patient Tobacco Use Status Former Tobacco user 09/11/24 13:53 e-Cigarette/Vaping Use Never Used 09/11/24 13:53 Thrive Assessment: Date of Thrive Assessment Date Thrive assessed 07/03/24 09/11/24 13:53 Const General: healthy appearing, no acute distress, alert and awake Nutritional Appearance: well nourished Orientation/consciousness: oriented to person, oriented to place and oriented to time HENMT Ears: TM's normal bilaterally General nose exam: Normal nasal mucous membranes and turbinates present Eyes Conjunctivae: conjunctivae normal Sclerae: sclerae normal Pupils: Equal, round and reactive pupils present Neck Neck: Yes no lymphadenopathy and Yes no JVD Thyroid: Thyroid normal Carotids: no bruits Resp Effort & Inspection: normal respiratory effort and not tachypneic Auscultation: no crackles, no rales, no rhonchi and no wheezes Cardio Rate: regular rate Rhythm: regular rhythm Heart sounds: no murmurs and normal S1 and S2 GI Palpation (GI): Soft to palpation, nontender, no hepatomegaly and no splenomegaly Auscultation: normal bowel sounds Skin General skin exam: no rashes or lesions noted and dry skin Neuro General: oriented to person, oriented to place and oriented to time Cranial nerves: Yes Equal, round and reactive pupils present Speech: No Abnormal speech present Gait exam (Neuro): Normal gait present Motor exam (neuro): no tremor noted Extrem Right upper extremity: full ROM Left upper extremity: full ROM Right lower extremity: full ROM; no edema Left lower extremity: full ROM; no edema Psych Mental Status: mental status grossly normal Speech and movement: Normal speech and movement present Affect: normal affect Attitude: cooperative Thought process: Normal thought process present Coding Level of Care Code Est Pt Level 4 (83838) Diagnoses Primary hypertension I10 Hypertension type: primary hypertension Chest pain at rest R07.9 Anxiety F41.9 Assessment & Plan Assessment & Plan (1) HTN (hypertension): Code(s): I10 - Essential (primary) hypertension Category: Medical Qualifiers: Hypertension type: primary hypertension Qualified Code(s): I10 - Essential (primary) hypertension Plan: Patient's blood pressure slightly elevated today in office. He reports blood pressure high when he went to the hospital. He reports he was given a nitro which did bring his blood pressure down on the ambulance. Will start lisinopril 10 mg daily and start having patient monitor his blood pressure at home. Goal blood pressure to be below 140/90 (2) Chest pain at rest: Code(s): R07.9 - Chest pain, unspecified Category: Medical Plan: Due to patient's reports of chest tightness and elevated blood pressure readings will send for cardiac stress test to evaluate for evidence of cardiac ischemia on physical exertion. (3) Anxiety: Code(s): F41.9 - Anxiety disorder, unspecified Category: Medical Plan: Provide anxiolytic medication for short-term use and consider lifestyle changes to manage stress and anxiety levels. Orders: Orders CA stress test Today R07.9 - Chest pain, unspecified Medications: New lisinopril 10 mg PO DAILY 30 tabs 1RF I10 - Essential (primary) hypertension lorazepam 0.5 mg PO DAILY 5 days PRN 5 tabs 0RF anxiety F41.9 - Anxiety disorder, unspecified blood pressure monitor As directed 1 ea 0RF I10 - Essential (primary) hypertension
[2024-09-11 14:14] VITALS: BP 136/90; PULSE 78; TEMP 36.2; O2SAT 98; BMI 26.2
== END 2024-09-11 14:53 | disposition home or self-care (01) ==
LOC: HO.HMCH 13:50
PROVIDERS: PCP Physician Assistant; Visit Provider Physician Assistant
DX: I10 Essential (primary) hypertension (principal); R07.9 Chest pain, unspecified; F41.9 Anxiety disorder, unspecified

== ENCOUNTER → 2024-09-11 13:50 | Outpatient (BNVA) | payer OTHER, SELFPAY | PROVIDERS: PCP Physician Assistant; Visit Provider Physician Assistant ==

== ENCOUNTER → 2024-09-25 09:58 | Outpatient (REF) | payer OTHER, SELFPAY ==
--- NOTE | 2024-09-25 10:01 | CA_ITS ---
Acquisition Time: 2024-09-25 10:52:57 Total Exercise Time: 00:06:18 Test Indications: cheszt pain Medications: albuterol Protocol: EVELIN Max HR: 133 BPM 79% of Pred: 167 BPM Max BP: 130/84 mmHG Max Work Load: 7.3 METS Exercise stress test with exercise 6 mins 18 secs of Evelin Protocol, achieving 78% MPHR, requesting to stop due to SOB, no chest pain, with isolated PACs, brief atrial run- 3 beats, with normotensive response to exercise. Nonspecific EKG at baseline that looked more prominent at the achieved workload, not meeting criteria for ischemia. In recovery, breathing returned to baseline. Recommend further evaluation with nuclear imaging. Test reviewed with Dr. Mckay. Referred By: Arnaldo Marion Electronically Signed By: Fernando Brownlee
== END ==
LOC: HO.CARD 09:58
PROVIDERS: PCP Physician Assistant; Visit Provider Physician Assistant
DX: R07.9 Chest pain, unspecified (principal)
CPT/HCPCS: 93017

== ENCOUNTER → 2024-09-25 10:01 | Outpatient (BNV) | payer OTHER, SELFPAY | PROVIDERS: PCP Physician Assistant | DX: R06.02 Shortness of breath (principal); I49.1 Atrial premature depolarization | CPT/HCPCS: 93016; 93018 ==

== ENCOUNTER 2024-10-21 13:21 | Outpatient (AMB) | payer OTHER, SELFPAY ==
[2024-10-21 13:25] VITALS: BP 110/80; PULSE 80; TEMP 36.3; O2SAT 98; BMI 26.2
--- NOTE | 2024-10-21 13:25 | A.OFFPC_ITS ---
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: No Accompanied by: Self / Same As Patient Allergies No Known Allergies [NO KNOWN ALLERGIES] Allergy (Unknown, Verified 10/21/24 13:33) UNKNOWN Medication List - Last Reconciled 10/21/24 by Arnaldo Marion PA-C acetaminophen ER (Tylenol Arthritis Pain) 650 mg PO Q12H 30 days albuterol sulfate 2.5 mg (3 mL) inhalation Q6H PRN 30 days bisacodyl (Dulcolax (bisacodyl)) 10 mg (2 x 5 mg) PO BEDTIME 2 days blood pressure monitor As directed cyclobenzaprine 10 mg PO BEDTIME PRN lisinopril 10 mg PO DAILY lorazepam 0.5 mg PO DAILY PRN 5 days meloxicam 15 mg PO DAILY 15 days montelukast 10 mg PO BEDTIME omeprazole 20 mg PO DAILY 90 days peg 3350-electrolytes 236-22.74-6.74 -5.86 gram (Golytely) 240 mL PO Q10M 1 day sumatriptan succinate take 1 tab at onset of headache; if no relief may repeat 1 tab after at least 2 hrs; max = 4 tabs/24 hr PO 30 days Ventolin HFA 90 mcg/actuation (albuterol sulfate) 2 puffs inhalation Q4-6H 30 days NS Tobacco use date assessed: 07/03/24 Dental Screening Dental Screen Date: 07/03/24 HPI annual exam HPI Details Patient is a 54 -year-old male here today for routine annual physical ?Patient has a past medical history significant for moderate persistent asthma, migraines, GERD Chest pains--> had an abnormal cardiac stress test a few weeks ago and is due for nuclear stress test. During a stress test EKG showing-->isolated PACs, brief atrial run- 3 beats and patient has significant shortness of breath although no evidence of ischemia. Recommendations made for nuclear stress test thus scheduled for December 02. Otherwise he does admit that he has a lot of stress at home and at his work that may be contributing to some of his symptoms stated above. .. Asthma:? Reports his asthma has fairly well controlled.? Occasionally uses prednisone for acute exacerbations. 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 He also uses Singulair which he reports helps some.? Has used maintenance inhalers (Advair and Symbicort)? in the past without much relief of his asthma symptoms.? He reports using Breo which works well to control his asthma though has headaches. .. Hypertension: Patient's blood pressure acceptable today in office. Continues on lisinopril 10 mg that seems to be managing his blood pressure well. .. Borderline high cholesterol: Patient has a history of borderline high total cholesterol. He is willing to get fasting lipid panel done to continue to follow. .. Migraines: Have been well controlled since better control of his asthma. Does seldomly use sumatriptan for migraine . .. GERD:? Has started on daily use of omeprazole which works wonderfully and reducing his GERD symptoms . Colon cancer screening: Patient is by gastroenterology here in [place], has not been to scheduled colonoscopy Vaccines: Declines flu vaccine, up-to-date with COVID vaccine and pneumonia vaccine and tetanus vaccine, Considering Shingrex . FORMERLY [facility] Medical History Lumbar disc disease Hand arthritis Cervical radiculitis Pre-op examination Low back pain Sinus infection Viral gastroenteritis Acute bronchitis Encounter for vasectomy Annual physical exam Screening for diabetes mellitus (DM) Screening for hypercholesterolemia Colon cancer screening Screening for hypothyroidism Other chronic pain Abdominal pain Asthma IBS (irritable bowel syndrome) GERD (gastroesophageal reflux disease) Surgical History History of surgery Social History (Updated 10/21/24 @ 13:47 by Arnaldo Marion PA-C) Housing: House Alcohol intake: current Alcohol intake frequency: holidays/special occasions only Alcohol type: beer Patient Tobacco Use Status: Former Tobacco user e-Cigarette/Vaping Use: Never Used Second Hand Smoke Exposure: Yes service: No Current occupational status: unemployed Current occupational exposures/hazards: No Cognitive needs: No Hearing needs: No Vision needs: Yes (wae glasses) Questionnaire PHQ-9 Over the last 2 weeks, how often have you been bothered by any of the following problems? 1. Little interest or pleasure in doing things: not at all 2. Feeling down, depressed, or hopeless: not at all 3. Trouble falling or staying asleep, or sleeping too much: several days 4. Feeling tired or having little energy: several days 5. Poor appetite or overeating: several days 6. Feeling bad about yourself - or that you are a failure or have let yourself or your family down: not at all 7. Trouble concentrating on things, such as reading the newspaper or watching television: not at all 8. Moving or speaking so slowly that other people could have noticed. Or the opposite - being so fidgety or restless that you have been moving around a lot more than usual: several days 9. Thoughts that you would be better off or of hurting yourself in some way: not at all Total score: 4 Depression Screening Interpretation: Negative Depression Screening Done: Yes 25412 - PHQ-9 Billing: Yes Source: Developed by Drs. Mark Maynard, Amanda Vásquez, Dinesh Stone and colleagues, with an educational idania from [employer]. Thrive Questionnaire Date Thrive assessed: 10/21/24 I am a: Patient What is your living situation today?: I have a steady place to live Within the past 12 months, did the food you bought not last and you didn't have the money to get more?: I choose not to answer this question Within the past 12 months, did you worry whether your food would run out before you got money to buy more?: I choose not to answer this question Do you have trouble paying for medicines?: No Do you have trouble getting transportation to medical appointments?: No Do you have trouble paying your heating and electricity bill?: No Do you have trouble taking care of your child, family member or friend?: No Do you have trouble with day-to-day activities such as bathing, preparing meals, shopping, managing finances, etc.?: Yes Are you currently unemployed and looking for a job?: No Are you interested in more education?: No Please select the resources that you would like help with: None Currently or been in a relationship where the following occur: I choose not to answer THRIVE Score: 0 AUDIT C Alcohol Use Questionnaire (AUDIT-C) 1. How often do you have a drink containing alcohol?: Never 3. How often do you have six or more drinks on one occasion?: Never Total Score: 0 JANA-7 AMB Questionnaire JANA-7 Date JANA - 7 assessed: 10/21/24 Feeling nervous, anxious, or on edge: 1 = Several days Not being able to stop or control worryin = Not at all Worrying too much about different things: 1 = Several days Trouble relaxin = Not at all Being so restless that it is hard to sit still: 0 = Not at all Becoming easily annoyed or irritable: 0 = Not at all Feeling afraid as if something awful might happen: 0 = Not at all Total JANA-7 score (0-4 normal; 5-9 mild; 10-14 moderate; 15-21 severe): 2 Source: Developed by Drs. Mark Maynard, Amanda Vásquez, Dinesh Stone and colleagues, with an educational idania from [employer]. JANA-7 Assessment Billing JANA-7 Assessment Tool: JANA-7 Assessment 82035 Review of Systems Const Denies body aches, Denies chills, Denies excessive sweating, Denies fatigue, Denies fever(s) and Denies headache(s) Eyes Denies blurry vision ENT Denies dysphagia, Denies vertigo, Denies dizziness, Denies headache(s), Denies hearing loss and Denies tinnitus Card Denies chest pain, Denies chest pain with activity, Denies syncope, Denies irregular heart rhythm and Denies dyspnea Resp Denies chest congestion, Denies cough, Denies hemoptysis, Denies dyspnea and Denies wheezing GI Denies abdominal pain, Denies melena, Denies hematochezia, Denies coffee ground emesis, Denies dysphagia, Denies diarrhea, Denies nausea and Denies vomiting Denies difficulty urinating, Denies dysuria, Denies urinary frequency, Denies urinary hesitancy and Denies urinary urgency Musc Denies arthralgias, Denies limited range of motion, Denies muscle cramps and Denies muscle weakness Skin/Breast Denies rash and Denies skin ulcer Neuro Denies Abnormal speech present, Denies confusion, Denies vertigo, Denies dizziness, Denies syncope, Denies headache(s), Denies memory loss and Denies seizure-like activity Psych Denies anxiety, Denies confusion, Denies depression, Denies memory loss, Denies panic attacks and Denies paranoia Endo Denies excessive sweating, Denies fatigue, Denies flushing, Denies polydipsia and Denies polyuria Aller/Immun Denies wheezing Physical exam (Primary Care) Vital Signs: Last Vital Signs Temp 97.3 F 10/21/24 13:25 Pulse 80 10/21/24 13:25 BP 110/80 10/21/24 13:25 Pulse Ox 98 10/21/24 13:25 Oxygen Delivery Method Room Air 10/21/24 13:25 BMI result Body Mass Index 26.2 Tobacco/Smoking Status: Tobacco use Status Tobacco use date assessed 07/03/24 10/21/24 13:27 Patient Tobacco Use Status Former Tobacco user 10/21/24 13:47 e-Cigarette/Vaping Use Never Used 10/21/24 13:47 PHQ-9: PHQ-9 Score PHQ-9: Total score 4 10/23/24 08:03 Depression Screening Interpretation: Negative Thrive Assessment: Date of Thrive Assessment Date Thrive assessed 10/21/24 10/21/24 13:27 Currently or been in a relationship where the following occur: I choose not to answer Const General: cooperative, comfortable, no acute distress, alert and awake; No confusion Orientation/consciousness: oriented to person, oriented to place, patient oriented x3 and No confusion HENMT Head: Yes normocephalic Ears: external ears normal and TM's normal bilaterally Face and sinus: No sinus tenderness Mouth: Normal oral and palatal mucosa present and tongue normal Teeth and gingiva: dentition normal and gingiva normal Throat: Yes posterior oropharynx normal, Yes tonsils normal and Yes uvula midline Eyes Conjunctivae: conjunctivae normal Sclerae: sclerae normal Pupils: Equal, round and reactive pupils present EOM: EOMs intact bilaterally Direct Ophthalmoscopy: No no photophobia Neck Neck: Yes no lymphadenopathy, No tender and Yes no JVD Thyroid: Thyroid normal Carotids: no bruits Chest Chest palpation & inspection: no tenderness Resp Effort & Inspection: normal respiratory effort, no audible wheezes, not labored and no stridor Auscultation: no crackles, no rales, no rhonchi and no wheezes Cardio Jugular venous distension: no JVD Rate: regular rate, not bradycardic and not tachycardic Rhythm: regular rhythm Bruits: no carotid bruits Peripheral pulses: Peripheral pulses 2+ throughout GI Inspection: Yes normal to inspection, No abdominal wall ecchymosis and No visible herniation Palpation (GI): Soft to palpation, nontender, no guarding, not rigid and No hepatosplenomegaly present Auscultation: normoactive bowel sounds General: Yes no CVA tenderness Back/Spine/Pelvis Back: no CVA tenderness and No back tenderness Cervical Spine: cervical ROM normal Thoracic/Lumbar Spine: thoracic and lumbar spine normal to inspection, straight leg raise negative bilaterally, No thoraco-lumbar ROM limited and No lumbar spinal tenderness Skin Lesions: no lesions Rashes: no rashes Wounds: no wounds Neuro General: oriented to person, oriented to place, patient oriented x3, CN's II-XI intact bilaterally and No confusion Cranial nerves: Yes Equal, round and reactive pupils present and Yes Normal accommodation reflex present Cognition (Neuro): normal cognition Speech: No Abnormal speech present Gait exam (Neuro): Normal gait present Motor exam (neuro): 5/5 motor strength present throughout Extrem Right upper extremity: full ROM; no cyanosis Left upper extremity: full ROM; no cyanosis Right lower extremity: no edema Left lower extremity: no edema Psych Appearance: grossly normal Mental Status: mental status grossly normal Affect: normal affect Attitude: cooperative Thought process: Normal thought process present Coding Level of Care Code Est Pt Level 4 (40676) Diagnoses Primary hypertension I10 Hypertension type: primary hypertension Chest pain at rest R07.9 Anxiety F41.9 Otalgia, left ear H92.02 Moderate persistent asthma without complication J45.40 Asthma complication type: uncomplicated Additional Codes JANA-7 Assessment Billing - JANA-7 Assessment Tool: JANA-7 Assessment 54193 ([id number]) PHQ-9 - 98753 - PHQ-9 Billing: Yes ([id number]) Assessment & Plan Assessment & Plan (1) HTN (hypertension): Code(s): I10 - Essential (primary) hypertension Category: Medical Qualifiers: Hypertension type: primary hypertension Qualified Code(s): I10 - Essential (primary) hypertension Plan: Patient's blood pressure acceptable today in office. Will continue his current dose of lisinopril .Goal blood pressure to be below 140/90 (2) Chest pain at rest: Code(s): R07.9 - Chest pain, unspecified Category: Medical Plan: Patient does report still having intermittent episodes of chest tightness and pain. Unclear if this is related to a pulmonary disease. Does have upcoming appointment with pulmonology. Will send for CT chest to evaluate for parenchymal lung disease. He does have an upcoming appointment for cardiac nuclear stress test. Of note does have family history as well of coronary artery disease in both his mom and his father (3) Anxiety: Code(s): F41.9 - Anxiety disorder, unspecified Category: Medical Plan: Provide anxiolytic medication for short-term use and consider lifestyle changes to manage stress and anxiety levels. (4) Otalgia, left ear: Code(s): H92.02 - Otalgia, left ear Category: Medical Plan: Patient continues to have left ear pain. Has already been treated with antibiotics though no improvement.. Benign presentation today on physical exam. Will supply patient with prednisone taper for possible Eustachian tube dysfunction (5) Moderate persistent asthma: Code(s): J45.40 - Moderate persistent asthma, uncomplicated Category: Medical Qualifiers: Asthma complication type: uncomplicated Qualified Code(s): J45.40 - Moderate persistent asthma, uncomplicated Plan: Patient continues to report shortness of breath and chest tightness. He has tried many different maintenance inhalers in the past including Advair and here due though felt they were not effective. Does report Ventolin his effective on reducing his pulmonary symptoms. Does have upcoming appointment with pulmonology for further evaluation. As above will try for CT chest to evaluate for a parenchymal lung disease as he has been reporting some intermittent chest pains more regular lately. Orders: Orders CT chest w IV con 10/21/24 J45.40 - Moderate persistent asthma, uncomplicated Lipid Panel 10/21/24 E78.9 - Disorder of lipoprotein metabolism, unspecified Hemoglobin A1c 10/21/24 R73.09 - Other abnormal glucose Comprehensive [place]. Panel Fast 10/21/24 R73.09 - Other abnormal glucose Complete Blood Count no Diff 10/21/24 R73.09 - Other abnormal glucose Prostate Specific Antigen Scr 10/21/24 R73.09 - Other abnormal glucose, Z12.5 - Encounter for screening for malignant neoplasm of prostate Referrals Ear/Nose/Throat Referral H92.02 - Otalgia, left ear Medications: New prednisone Take 3 tablets x3 days, 2 tablets x3 days, 1 tablet x3 days 10 mg PO DIRECTED 18 tabs 0RF 9 days H92.02 - Otalgia, left ear Refilled albuterol sulfate 2.5 mg (3 mL) inhalation Q6H 30 days PRN 360 mL 1RF shortness of breath or wheezing J45.40 - Moderate persistent asthma, uncomplicated montelukast 10 mg PO BEDTIME 90 tabs 2RF J45.40 - Moderate persistent asthma, uncomplicated albuterol sulfate 2.5 mg (3 mL) inhalation Q6H PRN 360 mL 1RF shortness of breath or wheezing 30 days J45.40 - Moderate persistent asthma, uncomplicated Ventolin HFA 90 mcg/actuation (albuterol sulfate) 2 puffs inhalation Q4-6H 18 grams 3RF shortness of breath or wheezing 30 days NS J45.40 - Moderate persistent asthma, uncomplicated
== END 2024-10-21 14:18 | disposition home or self-care (01) ==
LOC: HO.HMCH 13:22
PROVIDERS: PCP Physician Assistant; Visit Provider Physician Assistant
DX: I10 Essential (primary) hypertension (principal); R07.9 Chest pain, unspecified; F41.9 Anxiety disorder, unspecified; H92.02 Otalgia, left ear; J45.40 Moderate persistent asthma, uncomplicated

== ENCOUNTER → 2024-10-21 13:21 | Outpatient (BNVA) | payer OTHER, SELFPAY | PROVIDERS: PCP Physician Assistant; Visit Provider Physician Assistant | DX: Z00.00 Encounter for general adult medical examination without abnormal findings (principal); I10 Essential (primary) hypertension; R07.9 Chest pain, unspecified; F41.9 Anxiety disorder, unspecified; H92.02 Otalgia, left ear; J45.40 Moderate persistent asthma, uncomplicated; K21.9 Gastro-esophageal reflux disease without esophagitis; G43.909 Migraine, unspecified, not intractable, without status migrainosus; Z79.899 Other long term (current) drug therapy | CPT/HCPCS: 96127 ==

== ENCOUNTER 2024-11-26 09:14 | Outpatient (AMB) | payer OTHER, SELFPAY ==
[2024-11-26 09:21] VITALS: BP 108/70; PULSE 64; O2SAT 97; BMI 26.5
--- NOTE | 2024-11-26 09:21 | MHC.OFFVIS ---
Vital Signs 11/26/24 09:21 Height 5 ft 8 in Weight 174 lb BMI 26.5 BP 108/70 Blood Pressure Location Rt brachial Position Sitting Pulse 64 Pulse Source Pulse Oximeter Pulse Oximetry (%) 97 Oxygen Delivery Method Room Air Intake Visit Reasons: asthma Allergies No Known Allergies [NO KNOWN ALLERGIES] Allergy (Unknown, Verified 11/26/24 09:24) UNKNOWN HPI HPI asthma: Details: Lv is a pleasant 54 male, former 20+ pack year smoker, quit 5 years ago, now vaping nicotine, with underlying asthma, HTN, GERD and allergic rhinitis. He was referred by PCP pulmonary evaluation for worsening asthma. He is only prescribed albuterol MDI which he uses multiple times per day. He was previously using Flovent and Breo, unclear why these were discontinued. He continues to report dyspnea, wheezing and occasional dry cough. He reports asthma since childhood, requiring hospitalizations in the past, never intubation, last 5+ years ago. He has a current prescription for prednisone to use PRN, he recently took 2 doses with improvements in dyspnea. He endorses multiple environmental allergens, previously under the care of [facility], however lost to follow up. He reports asthma is triggered by allergies and stress. He uses claritin and montelukast with moderate effect. 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 He reports mother with asthma, otherwise no pertinent family history. [facility] Medical History (Updated 11/26/24 @ 11:50 by Lena Jarquin NP) Lumbar disc disease Hand arthritis Cervical radiculitis Pre-op examination Low back pain Sinus infection Viral gastroenteritis Acute bronchitis Encounter for vasectomy Annual physical exam Screening for diabetes mellitus (DM) Screening for hypercholesterolemia Colon cancer screening Screening for hypothyroidism Other chronic pain Abdominal pain IBS (irritable bowel syndrome) GERD (gastroesophageal reflux disease) Surgical History History of surgery Social History (Updated 11/26/24 @ 09:24 by Annel Ramirez CMA) Housing: House Alcohol intake: current Alcohol intake frequency: holidays/special occasions only Alcohol type: beer Patient Tobacco Use Status: Former Tobacco user e-Cigarette/Vaping Use: Currently Using Second Hand Smoke Exposure: Yes service: No Current occupational status: unemployed Current occupational exposures/hazards: No Cognitive needs: No Hearing needs: No Vision needs: Yes (wae glasses) Physical Exam Vital Signs: Last Vital Signs Pulse 64 11/26/24 09:21 BP 108/70 11/26/24 09:21 Pulse Ox 97 11/26/24 09:21 Oxygen Delivery Method Room Air 11/26/24 09:21 BMI result Body Mass Index 26.5 Assessment & Plan Assessment & Plan (1) Asthma-COPD overlap syndrome: Code(s): J44.89 - Other specified chronic obstructive pulmonary disease Category: Medical (2) Personal history of tobacco use: Code(s): Z87.891 - Personal history of nicotine dependence Category: Social Hx (3) Environmental allergies: Code(s): Z91.09 - Other allergy status, other than to drugs and biological substances Category: Medical Plan Lv presents for pulmonary evaluation for worsening control of asthma, currently using albuterol MDI frequently. Will start on Advair. Discussed importance of good oral hygiene to prevent thrush. Prior PFT revealed moderate obstruction with FEV1/FVC 59, FEV1 57 with no significant response to bronchodilators, lung volumes and DLCO normal. Will send for repeat PFT as prior was from 2018. Patient with significant allergic component previously under the care of [facility] and attempting to reestablish care. Encouraged patient to continue singulair and antihistamine PRN. May need to consider biologic in the future. Patient with long history of smoking, quit 5 years ago now vaping. Discussed importance of cessation and potential adverse effects. Will send for chest CT to evaluate. All questions were answered and patient is in agreement of plan. Will follow up in 6-8 weeks or sooner if needed. Orders: Orders CT chest wo IV con Today Z87.891 - Personal history of nicotine dependence PFT pulmonary function test Today J44.89 - Other specified chronic obstructive pulmonary disease Medications: New fluticasone propion-salmeterol 230-21 mcg/actuation (Advair HFA) 2 puffs inhalation Q12H 12 grams 6RF Coding Level of Care Code New Pt Level 4 (03470) Diagnoses Asthma-COPD overlap syndrome J44.89 Personal history of tobacco use Z87.891 Environmental allergies Z91.09
== END 2024-11-26 10:20 | disposition home or self-care (01) ==
LOC: HO.HPSW 09:15
PROVIDERS: PCP Physician Assistant; Visit Provider Nurse Practitioner Family
DX: J44.89 Other specified chronic obstructive pulmonary disease (principal); Z87.891 Personal history of nicotine dependence; Z91.09 Other allergy status, other than to drugs and biological substances
CPT/HCPCS: 99204

== ENCOUNTER → 2024-11-26 09:14 | Outpatient (BNVA) | payer OTHER, SELFPAY | PROVIDERS: PCP Physician Assistant; Visit Provider Nurse Practitioner Family ==

== ENCOUNTER → 2024-12-02 08:20 | Outpatient (REF) | payer OTHER, SELFPAY ==
--- NOTE | ~2024-12-02 | NM_ITS ---
Lexiscan Myocardial perfusion study Indication: Chest pain Technique: The patient was brought in for a Lexiscan perfusion study on 12/02/2024 and was injected 0.4 mg of Lexiscan intravenously. Within a minute of this injection 30 mCi of sestamibi was given intravenously. Images were obtained using the SPECT gamma camera interlaced with the gating device. Images were obtained in supine position. Resting perfusion study was performed on 12/03/2024. Patient was administered 30 mCi of sestamibi intravenously at rest. Images were then obtained in supine position. Total DLP 80 mGy-cm. Images were processed with the software and compared side to side in short axis, horizontal long axis and vertical long axis views. Findings: Raw aquisition reviewed. The stress perfusion study showed diminished tracer uptake in the apical part of inferior wall. No significant change with CT attenuation correction. The gated study shows low normal LV systolic function with calculated LVEF of 51%. LV cavity is normal in size. The gated study shows normal wall thickening and contraction of segments. Resting study shows diminished tracer uptake in the apical part of inferior wall but slightly improved compared to stress acquisition. There is improvement with CT attenuation correction. Gating at rest reveals normal wall motion with ejection fraction at 54%. The findings are consistent with small, mixed but mostly fixed perfusion defect in the apical part of inferior wall. LA/LA cardiolite stress test Impression: 1. Myocardial perfusion imaging study shows small mostly fixed perfusion defect in the apical inferior wall. Could be artifactual. Less likely to represent small nontransmural infarct/ischemia. 2. Gated LVEF is 51% during stress and 54% during rest. 3. Transient ischemic dilatation not present. EKG component of the test reported separately. Electronically signed by: Abdoulaye Horta MD 12/03/2024 03:41 PM EDT
--- NOTE | 2024-12-02 08:22 | CA_ITS ---
Acquisition Time: 2024-12-02 08:34:31 Total Exercise Time: 00:02:00 Test Indications: CHEST PAIN Medications: Protocol: LEXISCAN Max HR: 127 BPM 76% of Pred: 167 BPM Max BP: 120/80 mmHG Max Work Load: 1.6 METS Pharmacological stress test with Lexiscan while pt walked slow on treadmill, with reports of SOBand dizziness, with baseline 3/10 chest tightness mostly under left axilla, without any arrythmias, with normotensive response to injection. Nondiagnostic EKG for ischemia. In recovery, pt treated with IVP Aminophylline 75 mg to reverse Lexiscan after which pt feeling back to baseline. Nuclear images pending. Test reviewed with Dr. Mckay. Referred By: Arnaldo Marion Electronically Signed By: Fernando Brownlee
== END ==
LOC: HO.CARD 08:20
PROVIDERS: PCP Physician Assistant; Visit Provider Physician Assistant
DX: R07.9 Chest pain, unspecified (principal)
CPT/HCPCS: 78452; 93017; A9500; J0280; J2785

== ENCOUNTER → 2024-12-02 08:22 | Outpatient (BNV) | payer OTHER, SELFPAY | PROVIDERS: PCP Physician Assistant | DX: R07.2 Precordial pain (principal); R06.02 Shortness of breath | CPT/HCPCS: 78452; 93016; 93018 ==

== ENCOUNTER 2024-12-05 10:14 | Outpatient (AMB) | payer OTHER, SELFPAY ==
--- NOTE | 2024-12-05 10:22 | MHC.OFFVIS ---
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 Accompanied by: Self / Same As Patient Allergies No Known Allergies (NO KNOWN ALLERGIES) Allergy (Unknown, Verified 12/05/24 10:24) UNKNOWN Medication List - Last Reconciled 12/05/24 by Rashad Mckay MD acetaminophen ER (Tylenol Arthritis Pain) 650 mg PO Q12H 30 days Advair HFA 230-21 mcg/actuation (fluticasone propion-salmeterol) 2 puffs inhalation Q12H NS albuterol sulfate 2.5 mg (3 mL) inhalation Q6H PRN 30 days blood pressure monitor As directed lisinopril 10 mg PO DAILY lorazepam 0.5 mg PO DAILY PRN 5 days montelukast 10 mg PO BEDTIME omeprazole 20 mg PO DAILY 90 days prednisone 10 mg PO DIRECTED 9 days sumatriptan succinate take 1 tab at onset of headache; if no relief may repeat 1 tab after at least 2 hrs; max = 4 tabs/24 hr PO 30 days Ventolin HFA 90 mcg/actuation (albuterol sulfate) 2 puffs inhalation Q4-6H 30 days NS HPI Comments Details: Pleasant 53 year gentleman who is here for abnormal nuclear perfusion imaging. He has been experiencing left-sided pressure-like feeling which happens mostly with activity. 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 He also had had episodes of pain at rest. Due to these symptoms he underwent nuclear perfusion imaging which showed inferior perfusion defect. He also has asthma which is poorly controlled and is in the process of getting prior authorization for Advair and is only using albuterol currently. He is saying that his asthma control is not good and when he walks he gets out of breath. He also has been getting dizzy but his blood pressure is low. He is currently advised to take lisinopril 10 mg which he does not take on most days. I have advised him to cut the dose to 5 mg daily. He also uses sumatriptan for migraine headaches and I am not sure whether his elevated blood pressures were in the context of sumatriptan use which can raise blood pressure when taken PRN. FORMERLY [facility], [facility] Medical History (Updated 12/05/24 @ 11:19 by Rashad Mckay MD) Lumbar disc disease Hand arthritis Cervical radiculitis Pre-op examination Low back pain Sinus infection Viral gastroenteritis Acute bronchitis Encounter for vasectomy Annual physical exam Screening for diabetes mellitus (DM) Screening for hypercholesterolemia Colon cancer screening Screening for hypothyroidism Other chronic pain Abdominal pain IBS (irritable bowel syndrome) GERD (gastroesophageal reflux disease) Surgical History History of surgery Family History (Updated 12/05/24 @ 10:27 by Imelda Shah CMA) Mother Hx of cardiac cath History of open heart surgery Diabetic acidosis Father History of open heart surgery Social History Housing: House Alcohol intake: current Alcohol intake frequency: holidays/special occasions only Alcohol type: beer Patient Tobacco Use Status: Former Tobacco user e-Cigarette/Vaping Use: Currently Using Second Hand Smoke Exposure: Yes service: No Current occupational status: unemployed Current occupational exposures/hazards: No Cognitive needs: No Hearing needs: No Vision needs: Yes (wae glasses) Review of Systems Const Denies chills, Denies fatigue, Denies fever(s), Denies frequent falls, Denies weakness, Denies weight gain and Denies weight loss ENT Denies dizziness Card Denies chest pain, Denies leg edema, Denies lightheadedness, Reports palpitations, Reports dyspnea, Reports dyspnea on exertion and Reports orthopnea Resp Denies cough, Reports dyspnea and Reports dyspnea on exertion GI Denies bloating and Denies change in bowel habits Musc Denies muscle weakness, Denies numbness and Denies tingling Neuro Denies dizziness, Denies frequent falls, Denies numbness, Denies tingling and Denies weakness Endo Denies fatigue and Reports palpitations Physical Exam Vital Signs: Last Vital Signs Pulse 73 12/05/24 10:24 BP 90/64 12/05/24 10:24 BMI result Body Mass Index 25.9 GENERAL APPEARANCE: in no acute distress, pleasant. NECK: no carotid bruit, no jugular venous distention. SKIN: no suspicious lesions, warm and dry. HEART: no murmurs, regular rate and rhythm. LUNGS: clear to auscultation bilaterally. ABDOMEN: soft, nontender. EXTREMITIES: no edema. PERIPHERAL PULSES: equal. NEUROLOGIC: No gross deficits, AAO X 3 Office Procedures EKG Details: Sinus rhythm 73 beats per minute, normal axis, normal ECG, QTC 418 milliseconds. [id number], Complete Assessment & Plan Assessment & Plan (1) Abnormal nuclear cardiac imaging test: Code(s): R93.1 - Abnormal findings on diagnostic imaging of heart and coronary circulation Category: Medical (2) HTN (hypertension): Code(s): I10 - Essential (primary) hypertension Category: Medical Qualifiers: Hypertension type: primary hypertension Qualified Code(s): I10 - Essential (primary) hypertension (3) Chest pain at rest: Code(s): R07.9 - Chest pain, unspecified Category: Medical Plan Pleasant 54-year-old gentleman who is here for chest discomfort and abnormal nuclear perfusion imaging. He clearly has exertional pattern of chest discomfort concerning for angina. We discussed about further workup and after discussion we have decided to proceed with a diagnostic angiogram. I am going to arrange this for him. He has risk factors for coronary disease and currently has exertional symptoms and abnormal nuclear perfusion imaging. We will do basic blood workup. Blood pressure is low and I have advised him to cut the dose of lisinopril to 5 mg daily. If he is continues to have low blood pressure then I think we should hold it. We have to see whether his elevated blood pressures were in setting of sumatriptan use. I have advised him not to use it any further. Thank you for allowing me to participate in the care of your patient. Please feel free to contact me if you have any questions. Orders: Orders Cardiac Cath LT Diagnostic Today R93.1 - Abnormal findings on diagnostic imaging of heart and coronary circulation Prothrombin Time INR Today R93.1 - Abnormal findings on diagnostic imaging of heart and coronary circulation Basic Metabolic Panel Today R93.1 - Abnormal findings on diagnostic imaging of heart and coronary circulation Complete Blood Count no Diff Today R93.1 - Abnormal findings on diagnostic imaging of heart and coronary circulation Medications: New aspirin (Adult Aspirin Regimen) 81 mg PO DAILY 120 tabs 3RF Changed From lisinopril 10 mg PO DAILY 30 tabs 1RF I10 - Essential (primary) hypertension To lisinopril 5 mg (2 x 10 mg) PO DAILY 30 tabs 1RF I10 - Essential (primary) hypertension On Hold sumatriptan succinate Hold Comment: Doctor's Order take 1 tab at onset of headache; if no relief may repeat 1 tab after at least 2 hrs; max = 4 tabs/24 hr PO 9 tabs 0RF 30 days G43.909 - Migraine, unspecified, not intractable, without status migrainosus Coding Level of Care Code New Pt Level 4 (97556) Diagnoses Abnormal nuclear cardiac imaging test R93.1 Primary hypertension I10 Hypertension type: primary hypertension Chest pain at rest R07.9 CPT Codes EKG - CPT: 24082-[id number], Complete ([id number])
[2024-12-05 10:24] VITALS: BP 90/64; PULSE 73; BMI 25.9
== END 2024-12-05 11:28 | disposition home or self-care (01) ==
LOC: HO.HCS 10:15
PROVIDERS: PCP Physician Assistant; Visit Provider Internal Medicine Cardiovascular Disease
DX: R94.39 Abnormal result of other cardiovascular function study (principal); I10 Essential (primary) hypertension; R07.9 Chest pain, unspecified
CPT/HCPCS: 93010; 99204

== ENCOUNTER → 2024-12-05 10:14 | Outpatient (BNVA) | payer OTHER, SELFPAY | PROVIDERS: PCP Physician Assistant; Visit Provider Internal Medicine Cardiovascular Disease | DX: R07.9 Chest pain, unspecified (principal); R93.1 Abnormal findings on diagnostic imaging of heart and coronary circulation; I10 Essential (primary) hypertension | CPT/HCPCS: 93005 ==

== ENCOUNTER 2024-12-09 09:02 | Outpatient (REF) | payer OTHER, SELFPAY ==
[2024-12-09 09:48] LABS: Hemoglobin 16.5 g/dl (14.0-18.0); Mean Corpuscular HGB Conc 35.1 g/dl (31.0-36.0); Mean Corpuscular Hemoglobin 29.7 pg (27.0-33.0); Mean Corpuscular Volume 84.7 fL (80.0-98.0); Mean Platelet Volume 9.4 fL (9.4-12.4); Platelet Count 275 X10*3/uL (160-400); Red Blood Count 5.55 X10*6/uL (4.60-5.80); Red Cell Distribution Width 13.5 % (11.0-16.0); White Blood Count 8.9 X10*3/uL (4.8-10.8)
[2024-12-09 09:54] LABS: Estimated Average Glucose 105 mg/dL; Hemoglobin A1C 149.3315 umol/L; Hemoglobin A1c % 5.3 % (<6.0)
[2024-12-09 09:58] LABS: Alanine Aminotransferase 30 U/L (0-40); Albumin Level 4.3 g/dL (3.5-5.0); Alkaline Phosphatase 72 U/L (39-117); Anion Gap 13 (12-20); Aspartate Amino Transferase 26 U/L (5-37); Bilirubin Total 0.4 mg/dL (0.0-1.0); Blood Urea Nitrogen 16 mg/dL (9-16); Calcium 8.8 mg/dL (8.4-10.2); Carbon Dioxide 23 mmol/L (22-29); Chloride 109 mmol/L (96-108); Cholesterol 247 mg/dL (<200); Estimated Glomerular Filt Rate > 60; Glucose Fasting 115 mg/dL (60-99); HDL Cholesterol 35 mg/dL (>40); Potassium 3.8 mmol/L (3.3-5.1); Sodium 141 mmol/L (135-145); Total Protein 6.8 g/dL (6.5-8.0); Triglycerides 661 mg/dL (<150)
[2024-12-09 10:20] LABS: Prostate Specific Antigen Scr 0.81 ng/mL (<0.05-4.0)
== END 2024-12-09 09:03 | disposition home or self-care (01) ==
LOC: HO.10HDL 09:02
PROVIDERS: Visit Provider Physician Assistant
DX: R73.09 Other abnormal glucose (principal); E78.9 Disorder of lipoprotein metabolism, unspecified; Z12.5 Encounter for screening for malignant neoplasm of prostate
CPT/HCPCS: 36415; 80053; 80061; 83036; 84153; 85027

== ENCOUNTER 2024-12-09 11:24 | Outpatient (AMB) | payer OTHER, SELFPAY ==
[2024-12-09 11:29] VITALS: BP 98/68; PULSE 91; TEMP 36.2; O2SAT 98; BMI 25.7
--- NOTE | 2024-12-09 11:29 | A.OFFPC_ITS ---
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 Accompanied by: Self / Same As Patient Allergies No Known Allergies (NO KNOWN ALLERGIES) Allergy (Unknown, Verified 12/09/24 11:32) UNKNOWN Medication List - Last Reconciled 12/09/24 by Arnaldo Marion PA-C acetaminophen ER (Tylenol Arthritis Pain) 650 mg PO Q12H 30 days albuterol sulfate 2.5 mg (3 mL) inhalation Q6H PRN 30 days aspirin (Adult Aspirin Regimen) 81 mg PO DAILY blood pressure monitor As directed fluticasone propion-salmeterol 113-14 mcg/actuation (AirDuo RespiClick) 1 inh inhalation BID lorazepam 0.5 mg PO DAILY PRN 5 days montelukast 10 mg PO BEDTIME omeprazole 20 mg PO DAILY 90 days sumatriptan succinate take 1 tab at onset of headache; if no relief may repeat 1 tab after at least 2 hrs; max = 4 tabs/24 hr PO 30 days Held on 12/05/24. Instructions: Doctor's Order Ventolin HFA 90 mcg/actuation (albuterol sulfate) 2 puffs inhalation Q4-6H 30 days NS Tobacco use date assessed: 07/03/24 Dental Screening Dental Screen Date: 07/03/24 HPI f/u htn HPI Details Patient is a 54 -year-old male here today for follow-up visit ?Patient has a past medical history significant for moderate persistent asthma, migraines, GERD Chest pains--> had an abnormal cardiac stress test a few weeks ago and is due for nuclear stress test. During a stress test EKG showing-->isolated PACs, brief atrial run- 3 beats and patient has significant shortness of breath although no evidence of ischemia. Recommendations made for nuclear stress test thus scheduled for December 02. Patient has underwent nuclear stress which showed mall mostly fixed perfusion defect in the apical inferior wall. Has followed up with the Cardiology whom is trying to set patient up for cardiac catheterization. At this point patient really not ready to return to work due to his continued chest pain palpitations his particularly when stressed or anxious. He would like another to 3 months off of work to figure out his cardiac condition and anxiety. He is open to the idea of starting an anxiety medication on a daily basis to help reduce his anxious symptoms .. Asthma:? Reports his asthma has fairly well controlled.? Occasionally uses prednisone for acute exacerbations. 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 He also uses Singulair which he reports helps some.? He has been prescribed Advair maintenance inhaler though too expensive for patient, alternative AirDuo has been sent in. He is due for CT of chest to evaluate his lungs as well. .. Hypertension: Patient's blood pressure low today in office. Will hold off on lisinopril for now due to low blood pressures. [facility] Medical History (Updated 12/09/24 @ 11:56 by Arnaldo Marion PA-C) Lumbar disc disease Hand arthritis Cervical radiculitis Pre-op examination Low back pain Sinus infection Viral gastroenteritis Acute bronchitis Encounter for vasectomy Annual physical exam Screening for diabetes mellitus (DM) Screening for hypercholesterolemia Colon cancer screening Screening for hypothyroidism Other chronic pain Abdominal pain IBS (irritable bowel syndrome) GERD (gastroesophageal reflux disease) Surgical History History of surgery Family History Mother Hx of cardiac cath History of open heart surgery Diabetic acidosis Father History of open heart surgery Social History Housing: House Alcohol intake: current Alcohol intake frequency: holidays/special occasions only Alcohol type: beer Patient Tobacco Use Status: Former Tobacco user e-Cigarette/Vaping Use: Currently Using Second Hand Smoke Exposure: Yes service: No Current occupational status: unemployed Current occupational exposures/hazards: No Cognitive needs: No Hearing needs: No Vision needs: Yes (wae glasses) Questionnaire Thrive Questionnaire Date Thrive assessed: 10/14/24 I am a: Patient What is your living situation today?: I have a steady place to live Within the past 12 months, did the food you bought not last and you didn't have the money to get more?: I choose not to answer this question Within the past 12 months, did you worry whether your food would run out before you got money to buy more?: I choose not to answer this question Do you have trouble paying for medicines?: No Do you have trouble getting transportation to medical appointments?: No Do you have trouble paying your heating and electricity bill?: No Do you have trouble taking care of your child, family member or friend?: No Do you have trouble with day-to-day activities such as bathing, preparing meals, shopping, managing finances, etc.?: Yes Are you currently unemployed and looking for a job?: No Are you interested in more education?: No Please select the resources that you would like help with: None Currently or been in a relationship where the following occur: I choose not to answer THRIVE Score: 0 JANA-7 AMB Questionnaire JANA-7 Date JANA - 7 assessed: 10/21/24 Source: Developed by Drs. Mark Maynard, Amanda Vásquez, Dinesh Stone and colleagues, with an educational idania from [employer]. Review of Systems Const Denies headache(s) Eyes Denies loss of vision ENT Denies vertigo, Denies dizziness, Denies headache(s) and Denies sore throat Card Reports chest pain, Denies leg edema, Denies lightheadedness and Reports dyspnea Resp Denies cough, Denies hemoptysis, Reports dyspnea and Denies wheezing GI Denies abdominal pain, Denies melena, Denies constipation, Denies diarrhea and Denies vomiting Denies dysuria, Denies urinary frequency and Denies urinary urgency Musc Denies arthralgias, Denies joint swelling, Denies numbness and Denies tingling Neuro Denies Abnormal speech present, Denies behavioral changes, Denies vertigo, Denies dizziness, Denies headache(s), Denies loss of vision, Denies memory loss, Denies numbness and Denies tingling Psych Denies anxiety, Denies behavioral changes, Denies depression, Denies memory loss and Denies panic attacks Leno/Lymph Denies easy bleeding and Denies easy bruising Aller/Immun Denies wheezing Physical exam (Primary Care) Vital Signs: Last Vital Signs Temp 97.1 F 12/09/24 11:29 Pulse 91 12/09/24 11:29 BP 108/65 12/09/24 11:58 Pulse Ox 98 12/09/24 11:29 Oxygen Delivery Method Room Air 12/09/24 11:29 BMI result Body Mass Index 25.7 Tobacco/Smoking Status: Tobacco use Status Tobacco use date assessed 07/03/24 12/09/24 11:30 Patient Tobacco Use Status Former Tobacco user 12/09/24 11:30 e-Cigarette/Vaping Use Currently Using 12/09/24 11:30 Thrive Assessment: Date of Thrive Assessment Date Thrive assessed 10/14/24 12/09/24 11:30 Currently or been in a relationship where the following occur: I choose not to answer Const General: healthy appearing, no acute distress, alert and awake Nutritional Appearance: well nourished Orientation/consciousness: oriented to person, oriented to place and oriented to time HENMT Ears: TM's normal bilaterally General nose exam: Normal nasal mucous membranes and turbinates present Eyes Conjunctivae: conjunctivae normal Sclerae: sclerae normal Pupils: Equal, round and reactive pupils present Neck Neck: Yes no lymphadenopathy and Yes no JVD Thyroid: Thyroid normal Carotids: no bruits Resp Effort & Inspection: normal respiratory effort and not tachypneic Auscultation: no crackles, no rales, no rhonchi and no wheezes Cardio Rate: regular rate Rhythm: regular rhythm Heart sounds: no murmurs and normal S1 and S2 GI Palpation (GI): Soft to palpation, nontender, no hepatomegaly and no splenomegaly Auscultation: normal bowel sounds Skin General skin exam: no rashes or lesions noted and dry skin Neuro General: oriented to person, oriented to place and oriented to time Cranial nerves: Yes Equal, round and reactive pupils present Speech: No Abnormal speech present Gait exam (Neuro): Normal gait present Motor exam (neuro): no tremor noted Extrem Right upper extremity: full ROM Left upper extremity: full ROM Right lower extremity: full ROM; no edema Left lower extremity: full ROM; no edema Psych Mental Status: mental status grossly normal Speech and movement: Normal speech and movement present Affect: normal affect Attitude: cooperative Thought process: Normal thought process present Coding Level of Care Code Est Pt Level 4 (94754) Diagnoses Mixed hyperlipidemia E78.2 Hyperlipidemia type: mixed hyperlipidemia Abnormal nuclear cardiac imaging test R93.1 Anxiety F41.9 Primary hypertension I10 Hypertension type: primary hypertension 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 He is willing to start statin therapy to reduce his overall cardiovascular risk. His most recent nuclear stress test showed possible ischemia and will be due for cardiac catheterization in near future Has been started on aspirin as well. (2) Abnormal nuclear cardiac imaging test: Code(s): R93.1 - Abnormal findings on diagnostic imaging of heart and coronary circulation Category: Medical Plan: As per HPI patient had an him notable nuclear stress test showing apical ischemia. Has followed up with Cardiology whom recommends cardiac catheterization. Has been started on aspirin and also will start cholesterol medication reduce overall CV risk. For now patient not able to return to work due to his chest pain, palpitations and shortness of breath. Filled out disability and FMLA paperwork today for another few months of continuous leave until we he will to figure out a proper diagnosis. (3) Anxiety: Code(s): F41.9 - Anxiety disorder, unspecified Category: Medical Plan: Patient does appear to have anxious symptoms in the setting of his chest pain and palpitations. He feels he is worried and scared about leaving his home. He does use lorazepam on a p.r.n. basis for panic attack which is effective. He is willing to start daily SSRI therapy to reduce his overall anxiety symptoms. He is not open to starting mental health therapy (4) HTN (hypertension): Code(s): I10 - Essential (primary) hypertension Category: Medical Qualifiers: Hypertension type: primary hypertension Qualified Code(s): I10 - Essential (primary) hypertension Plan: Patient's blood pressure low side today. Will hold off on lisinopril for now and advised patient to monitor blood pressure at home. Goal blood pressures to be above 90/60 in below 140/90 (5) Asthma-COPD overlap syndrome: Code(s): J44.89 - Other specified chronic obstructive pulmonary disease Category: Medical Plan: Patient now followed by pulmonology and has been started on a maintenance inhaler . He is due for CT of long to evaluate his lung more properly. He is due for pulmonary function test as well. Medications: New atorvastatin (Lipitor) 20 mg PO DAILY 30 tabs 3RF 30 days E78.2 - Mixed hyperlipidemia sertraline 50 mg PO DAILY 30 tabs 1RF 30 days F41.9 - Anxiety disorder, unspecified Refilled lorazepam 0.5 mg PO DAILY PRN 5 tabs 0RF anxiety 5 days F41.9 - Anxiety disorder, unspecified
[2024-12-09 11:58] VITALS: BP 108/65
== END 2024-12-09 13:20 | disposition home or self-care (01) ==
LOC: HO.HMCH 11:25
PROVIDERS: PCP Physician Assistant; Visit Provider Physician Assistant
DX: E78.2 Mixed hyperlipidemia (principal); R93.1 Abnormal findings on diagnostic imaging of heart and coronary circulation; J44.89 Other specified chronic obstructive pulmonary disease; F41.9 Anxiety disorder, unspecified; I10 Essential (primary) hypertension

== ENCOUNTER 2024-12-14 13:02 | Emergency (ER) | payer OTHER, SELFPAY ==
--- NOTE | ~2024-12-14 | XR_ITS ---
CLINICAL HISTORY: chest pain 2 view chest x-ray Comparison: CR/SR - XR CHEST 2V - 08/21/23 16:08 EST Findings: The lungs are clear. Heart size is normal. No acute fracture. IMPRESSION: 1. No acute findings. This document has been electronically signed by: Carolina Reilly MD on 12/14/2024 15:18:35
--- NOTE | 2024-12-14 13:04 | ECG_ITS ---
Test Reason : cp Blood Pressure : */* mmHG Vent. Rate : 72 BPM Atrial Rate : 72 BPM P-R Int : 124 ms QRS Dur : 88 ms QT Int : 376 ms P-R-T Axes : 63 48 41 degrees QTcB Int : 411 ms Normal sinus rhythm Normal ECG When compared with ECG of 21-Aug-2023 13:54, No significant change was found Referred By: Generic ED Physician Electronically Signed By: CLAUDE CASTRO MD
[2024-12-14 13:05] VITALS: BP 117/83; PULSE 78; RESP 16; TEMP 37; O2SAT 96; BMI 25.1
--- NOTE | 2024-12-14 13:08 | ED_ITS ---
HPI - Chest Pain General Chief Complaint: Chest Pain Stated Complaint: chest pains Time Seen by Provider: 12/14/24 13:28 Source: patient Mode of arrival: ambulatory Limitations: no limitations History of Present Illness ED Provider: yenni sanchez np. HPI narrative: Patient is a 54 year old male with past medical history of GERD, IBS, hyperlipidemia, hypertension who presents emergency department for evaluation of chest pain, he reports that he has been having ongoing issues with intermittent left anterior chest pain however it is typically intermittent lasting only a few hours. Since yesterday the pain is constant and felt to the left anterior chest this is the only change to what he has previously experienced, currently endorses it to be 3/10 nonradiating, took aspirin with some improvement but pain remains present 3/10. He denies associated dizziness, lightheadedness, diaphoresis, nausea, vomiting, worsening on exertion, shortness of breath, numbness or tingling of the extremities. Related Data Previous Rx's ?Medication ?Instructions ?Recorded acetaminophen 650 mg 650 mg PO Q12H 30 days #60 t abs 07/17/23 tablet,extended release (Tylenol Arthritis Pain) sumatriptan succinate 25 mg tablet See Rx Instructions PO .COMPLEX 30 10/17/23 Held on 12/05/24. days #9 tabs Instructions: Doctor's Order omeprazole 20 mg capsule,delayed 20 mg PO DAILY 90 day s #90 caps 07/03/24 release blood pressure monitor #1 ea 09/11/24 Ventolin HFA 90 mcg/actuation 2 puff inhalation Q4-6H shortness 10/21/24 aerosol inhaler (albuterol sulfate) of breath or wheez ing 30 days #18 grams albuterol sulfate 2.5 mg/3 mL 2.5 mg (3 mL) inhalation Q6H PRN 10/21/24 (0.083 %) solution for nebulization shortness of breat h or wheezing 30 days #360 mL montelukast 10 mg tablet 10 mg PO BEDTIME #90 tabs aspirin 81 mg tablet,delayed 81 mg PO DAILY #120 tabs 12/05/24 release (Adult Aspirin Regimen) fluticasone 113 mcg-salmeterol 14 1 inh inhalation BID #1 ea 12/08/24 mcg/actuation breath activated powdr (AirDuo RespiClick) atorvastatin 20 mg tablet (Lipitor) 20 mg PO DAILY 30 days #30 tabs 12/09/24 lorazepam 0.5 mg tablet 0.5 mg PO DAILY PRN anxiety 5 days 12/09/24 #5 tabs sertraline 50 mg tablet 50 mg PO DAILY 30 days #30 t abs 12/09/24 Allergies Allergy/AdvReac Type Severity Reaction Status Date / Time No Known Allergies (NO KNOWN Allergy Unknown UNKNOWN Verified 12/14/24 13:10 ALLERGIES) Review of Systems 2 Review of Systems: Yes all other systems are reviewed and are negative [facility] Past Medical History Attestation statement: The following information was validated with the patient. Source: old records reviewed Medical History Lumbar disc disease Hand arthritis Cervical radiculitis Pre-op examination Low back pain Sinus infection Viral gastroenteritis Acute bronchitis Encounter for vasectomy Annual physical exam Screening for diabetes mellitus (DM) Screening for hypercholesterolemia Colon cancer screening Screening for hypothyroidism Other chronic pain Abdominal pain IBS (irritable bowel syndrome) GERD (gastroesophageal reflux disease) Surgical History History of surgery Family History Family History Mother Hx of cardiac cath History of open heart surgery Diabetic acidosis Father History of open heart surgery Social History Social History Housing: House Alcohol intake: current Alcohol intake frequency: holidays/special occasions only Alcohol type: beer Patient Tobacco Use Status: Former Tobacco user Smoked in Last 30 Days: Yes e-Cigarette/Vaping Use: Currently Using Second Hand Smoke Exposure: Yes Use of substances other than those prescribed or required for medical reasons: No Advance Directives: No Advance Directives Information Provided: Yes Do you have a plan to hurt others: No Plan service: No Current occupational status: unemployed Current occupational exposures/hazards: No Cognitive needs: No Hearing needs: No Vision needs: Yes (wae glasses) Physical Exam 2 Vital Signs: Vital Signs: Last Vital Signs Temp 98.6 F 12/14/24 16:00 Pulse 88 12/14/24 16:00 Resp 12 12/14/24 16:00 BP 132/82 12/14/24 16:00 Pulse Ox 95 12/14/24 16:00 O2 Del Method Room Air 12/14/24 16:00 BMI result Body Mass Index 25.1 Appearance: Alert.?Oriented to person, place and time. No acute distress.?Normal affect. Eyes: Pupils equal, round and reactive to light.? ENT: Pharynx normal.?? Neck: Normal inspection.? Neck supple.??No JVD. CVS: Heart sounds normal. Normal heart rate and rhythm.? Pulses normal.?? Respiratory: No respiratory distress.? Lung sounds clear to auscultation bilaterally?? Abdomen: Soft and non-tender. Normoactive bowel sounds. No pulsatile mass.?? Skin: Skin warm and dry.? Normal skin color.? ?? Extremities: No lower extremity edema.? No calf ttp? Neuro: Moves all extremities spontaneously. Sensation intact bilaterally. CN II- XII intact. No focal neuro deficits. Ambulates with normal steady gait. Course Course Course Narrative: 12/14/24 1308 DARRIN Villalobos This is a Rapid Medical Examination (RME) performed by Jerry Warren PA-C in triage. Full HPI, ROS, assessment and treatment plan per primary provider in the Main ED. Hx: 54 yo M hx of GERD, IBS, HLD, HTN here for eval of L sided chest pain since yesterday. 08/25 at present, improved since taking aspirin prescribed by bark peeler last week. states he has a stress test scheduled next month. assoc SOB. PE/vitals: well appearing. Plan: labs, ekg Medications Administered Discontinued Medications Generic Name Dose Route Start Last Admin Trade Name Sukhwinder PRN Reason Stop Dose Admin Aspirin 324 mg 12/14/24 13:58 12/14/24 14:11 Aspirin 81 Mg Tab.Chew PO 12/14/24 13:59 324 mg ONCE ONE Administration Medical Decision Making Medical Decision Making MDM Narrative: Patient is a 54 year old male with past medical history of GERD, IBS, hyperlipidemia, hypertension who presents to the emergency department for evaluation with complaint of chest pain. he was recently seen by Cardiology Dr. Mckay, 12/05/2024 after having abnormal nuclear perfusion imaging revealing inferior perfusion defect, intermittent left anterior chest pain described as pressure particularly on activity but also at rest, concerning for angina given risk factors for CAD, orders were placed for diagnostic angiogram, scheduled on 01/12/2025. No evidence of volume overload or shock on exam. EKG without signs of acute ischemia, STEMI revealing sinus rhythm with ventricular rate of 72, normal HAIDER, QTC 411, no ST-elevation, no ST-depression. Low suspicion for acute PE (Wells low risk), pneumothorax, thoracic aortic dissection, cardiac effusion / tamponade. No recent trauma or injury, no tracheal deviation, unlikely tension pneumothorax. No recent URI symptoms to suggest viral illness, pneumonia, costochondritis. No abdominal tenderness upon palpation, negative Villareal sign, unlikely acute cholecystitis, choledocholithiasis, no fever or jaundice to suggest acute cholangitis, may possibly be biliary colic secondary to cholelithiasis. Denies associated acid reflux, no tenderness upon palpation over the epigastrium or left upper quadrant to suggest gastritis, no recent hematemesis history less likely to suggest PUD. Denies excessive alcohol consumption, history of diabetes, lower suspicion acute pancreatitis. Will obtain CBC to evaluate for leukocytosis/ anemia, CMP and lipase to evaluate for abnormal electrolytes /abnormal renal function/ abnormal hepatic/biliary function, EKG and troponin to evaluate for ischemia/ACS. Chest x-ray to evaluate for consolidation/ infiltrate/ mass/ pulmonary congestion, ASA, pain control and reassessment Differential Diagnosis Differential Diagnoses: The differential diagnosis associated with the presentation includes (See narrative above) Admission/Observation Consideration of admission/observation: Escalation of care including admission/observation considered (See narrative above and course narrative for further detail) Lab Data MDM Lab Attestation statement: I reviewed the patient's lab results. CBC is without leukocytosis anemia or thrombocytopenia. No electrolyte derangement. No OTILIO. LFTs and lipase unremarkable. High sensitive troponin below detectable limits. 12/14/24 13:15 12/14/24 13:15 Labs: Lab Results 12/14/24 Range/Units 13:15 WBC 8.7 (4.8-10.8) X10*3/uL RBC 5.62 (4.60-5.80) X10*6/uL Hgb 16.9 (14.0-18.0) g/dl Hct 47.5 (42.0-52.0) % MCV 84.5 (80.0-98.0) fL MCH 30.1 (27.0-33.0) pg MCHC 35.6 (31.0-36.0) g/dl RDW 13.4 (11.0-16.0) % Plt Count 242 (160-400) X10*3/uL MPV 10.0 (9.4-12.4) fL Immature Gran % (Auto) 0.2 (0.0-0.4) % Neut % (Auto) 57.9 (45-73) % Lymph % (Auto) 32.4 (20-40) % [place] % (Auto) 7.0 (2-11) % Eos % (Auto) 2.2 (0-4) % Baso % (Auto) 0.3 (0-2) % Lymph # (Auto) 2.8 (1.2-4.9) X10*3/uL [place] # (Auto) 0.6 (0.1-1.2) X10*3/uL Eos # (Auto) 0.2 (0.0-0.4) X10*3/uL Baso # (Auto) 0.0 (0.0-0.2) X10*3/uL Abs Immat Gran (auto) 0.02 (0.00-0.03) X10*3/uL Absolute Neuts (auto) 5.0 (2.0-8.3) x10*3/uL Absolute Nucleated RBC 0.000 (0.0-0.012) X10*3/uL Nucleated RBC % (auto) 0.0 (0.0-0.2) /100WBC Sodium 142 (135-145) mmol/L Potassium 3.8 (3.3-5.1) mmol/L Chloride 109 H (96-108) mmol/L Carbon Dioxide 24 (22-29) mmol/L Anion Gap 13 (12-20) BUN 13 (9-16) mg/dL Creatinine 1.06 (0.5-1.4) mg/dL Estim Creat Clear Calc 77.9 Estimated GFR > 60 Random Glucose 110 (60-115) mg/dL Calcium 8.9 (8.4-10.2) mg/dL Magnesium 1.8 (1.6-2.6) mg/dL Total Bilirubin 0.8 (0.0-1.0) mg/dL AST 33 (5-37) U/L ALT 33 (0-40) U/L Alkaline Phosphatase 77 (39-117) U/L Troponin I High Sens < 2.7 (<3.5-35.0) ng/L Total Protein 7.0 (6.5-8.0) g/dL Albumin 4.5 (3.5-5.0) g/dL Lipase 23 (8-78) U/L Independent Interpretation I performed an independent interpretation of an: EKG and Plain X-Ray (No consolidation infiltrate to suggest pneumonia. No pleural effusions.) Radiology Impression Discussion of test interpretation with radiology: I have reviewed the radiologist's reading. Radiologist Impression: 2 view chest x-ray Comparison: CR/SR - XR CHEST 2V - 08/21/23 16:08 EST Findings: The lungs are clear. Heart size is normal. No acute fracture. IMPRESSION: 1. No acute findings. Independent Historian Clinical information obtained from an independent historian. History obtained from or confirmed by: Spouse External Record Review External record reviewed: Outpatient record Chronic Conditions Patient?s care impacted by: Other (See narrative above) Discharge Plan Discharge Clinical Impression: Chest pain Patient Disposition: Home, Self-Care Instructions: Chest Pain (ED) Additional Instructions: You were seen in the emergency department today for evaluation of chest pain that you has been experiencing ongoing. You have appropriate outpatient follow- up already coordinated with your bark peeler. Please contact their office Sunday morning and make them aware of your visits emergency department. Your blood work today was reassuring, EKG did not show concerning changes findings, cardiac markers; troponin was normal, chest x-ray is without abnormality. Please return back to emergency department any new or worsening symptoms or concerns. Prescriptions: No Action fluticasone propion-salmeterol [AirDuo RespiClick] 113-14 mcg/actuation aerosol powdr breath activated 1 inh inhalation BID Qty: 1 6RF acetaminophen [Tylenol Arthritis Pain] 650 mg tablet extended release 650 mg PO Q12H 30 Days Qty: 60 0RF sumatriptan succinate 25 mg tablet See Rx Instructions PO .COMPLEX 30 Days Qty: 9 0RF Rx Instructions: take 1 tab at onset of headache; if no relief may repeat 1 tab after at least 2 hrs; max = 4 tabs/24 hr PO (DME) blood pressure monitor Kit See Rx Instructions .Route Qty: 1 0RF Rx Instructions: As directed lorazepam 0.5 mg tablet 0.5 mg PO DAILY PRN (Reason: anxiety) 5 Days Qty: 5 0RF atorvastatin [Lipitor] 20 mg tablet 20 mg PO DAILY 30 Days Qty: 30 3RF sertraline 50 mg tablet 50 mg PO DAILY 30 Days Qty: 30 1RF montelukast 10 mg tablet 10 mg PO BEDTIME Qty: 90 2RF albuterol sulfate 2.5 mg /3 mL (0.083 %) solution for nebulization 2.5 mg inhalation Q6H PRN (Reason: shortness of breath or wheezing) 30 Days Qty: 360 1RF albuterol sulfate [Ventolin HFA] 90 mcg/actuation HFA aerosol inhaler 2 puff inhalation Q4-6H 30 Days Qty: 18 3RF omeprazole 20 mg capsule,delayed release(DR/EC) 20 mg PO DAILY 90 Days Qty: 90 2RF aspirin [Adult Aspirin Regimen] 81 mg tablet,delayed release (DR/EC) 81 mg PO DAILY Qty: 120 3RF Referrals: Arnaldo Marion PA-C [Primary Care Provider, Internal Medicine] Rashad Mckay MD [Physician, Cardiology] Print Language: Kosovan
[2024-12-14 13:18] LABS: MANUAL DIFF FLAG NO
[2024-12-14 13:19] LABS: Basophils Percent Auto 0.3 % (0-2); Eosinophils Absolute Auto 0.2 X10*3/uL (0.0-0.4); Eosinophils Percent Auto 2.2 % (0-4); Hematocrit 47.5 % (42.0-52.0); Hemoglobin 16.9 g/dl (14.0-18.0); Imm Gran Abs Auto 0.02 X10*3/uL (0.00-0.03); Imm Gran Pct Auto 0.2 % (0.0-0.4); Lymphocytes Absolute Auto 2.8 X10*3/uL (1.2-4.9); Lymphocytes Percent Auto 32.4 % (20-40); Mean Corpuscular HGB Conc 35.6 g/dl (31.0-36.0); Mean Corpuscular Hemoglobin 30.1 pg (27.0-33.0); Mean Corpuscular Volume 84.5 fL (80.0-98.0); Monocytes Absolute Auto 0.6 X10*3/uL (0.1-1.2); Neutrophils Percent Auto 57.9 % (45-73); Platelet Count 242 X10*3/uL (160-400); Red Blood Count 5.62 X10*6/uL (4.60-5.80); Red Cell Distribution Width 13.4 % (11.0-16.0); White Blood Count 8.7 X10*3/uL (4.8-10.8)
[2024-12-14 13:38] LABS: Alanine Aminotransferase 33 U/L (0-40); Albumin Level 4.5 g/dL (3.5-5.0); Alkaline Phosphatase 77 U/L (39-117); Anion Gap 13 (12-20); Aspartate Amino Transferase 33 U/L (5-37); Bilirubin Total 0.8 mg/dL (0.0-1.0); Blood Urea Nitrogen 13 mg/dL (9-16); Calcium 8.9 mg/dL (8.4-10.2); Carbon Dioxide 24 mmol/L (22-29); Chloride 109 mmol/L (96-108); Creatinine Clr Calc Pharmacy 77.9; Estimated Glomerular Filt Rate > 60; Glucose Random 110 mg/dL (60-115); Lipase 23 U/L (8-78); Magnesium 1.8 mg/dL (1.6-2.6); Potassium 3.8 mmol/L (3.3-5.1); Sodium 142 mmol/L (135-145)
[2024-12-14 13:40] LABS: Troponin-I High Sensitivity < 2.7 ng/L (<3.5-35.0)
[2024-12-14 14:10] VITALS: BP 119/79; PULSE 66; RESP 18; O2SAT 95
[2024-12-14] MEDS: Aspirin 81 MG TAB.CHEW 324 MG PO (14:11)
--- NOTE | 2024-12-14 14:27 | PC.NURSE ---
pt is alert and oriented, skin appropriate for ethnicity, respirations even and unlabored, pt denies chest pain at this time, the pain is intermittent for about one week, when it comes its mostly on the left side and feels tight in the chest, ns on the monitor and vs stable
[2024-12-14 14:32] VITALS: BP 110/75; PULSE 64; RESP 15; TEMP 36.9; O2SAT 100
[2024-12-14 15:38] VITALS: BP 118/79; PULSE 61; RESP 18; O2SAT 96
[2024-12-14 16:00] VITALS: BP 132/82; PULSE 88; RESP 12; TEMP 37; O2SAT 95
[2024-12-14 16:34] VITALS: BP 132/82; PULSE 88; RESP 12; TEMP 37; O2SAT 95
== END 2024-12-14 16:35 | disposition home or self-care (01) ==
PROVIDERS: Physician Assistant Medical; Emergency Provider Emergency Medicine; PCP Physician Assistant
DX: R07.9 Chest pain, unspecified (principal); I10 Essential (primary) hypertension; E78.5 Hyperlipidemia, unspecified
CPT/HCPCS: 36415; 71046; 80053; 83690; 83735; 84484; 85025; 93005; 99283; 99285

== ENCOUNTER → 2024-12-14 13:04 | Outpatient (BNV) | payer OTHER, SELFPAY | PROVIDERS: Emergency Provider Emergency Medicine; PCP Physician Assistant; Visit Provider Internal Medicine Cardiovascular Disease | DX: R07.9 Chest pain, unspecified (principal) | CPT/HCPCS: 93010 ==

== ENCOUNTER → 2024-12-14 13:53 | Outpatient (BNV) | payer OTHER, SELFPAY | PROVIDERS: Emergency Provider Emergency Medicine; PCP Physician Assistant; Visit Provider Radiology Diagnostic Radiology | DX: R07.9 Chest pain, unspecified (principal) | CPT/HCPCS: 71046 ==

== ENCOUNTER 2025-01-08 14:28 | Outpatient (AMB) | payer OTHER, SELFPAY ==
--- NOTE | 2025-01-08 14:29 | MHC.PC.OV ---
Intake Visit Reasons: f/u anxiety ( telehealth) Supervisor Dials Required: No Accompanied by: Self / Same As Patient Allergies No Known Allergies (NO KNOWN ALLERGIES) Allergy (Unknown, Verified 01/08/25 14:55) UNKNOWN Medication List - Last Reconciled 01/08/25 by Arnaldo Marion PA-C acetaminophen ER (Tylenol Arthritis Pain) 650 mg PO Q12H 30 days albuterol sulfate 2.5 mg (3 mL) inhalation Q6H PRN 30 days aspirin (Adult Aspirin Regimen) 81 mg PO DAILY atorvastatin (Lipitor) 20 mg PO DAILY 30 days blood pressure monitor As directed fluticasone propion-salmeterol 113-14 mcg/actuation (AirDuo RespiClick) 1 inh inhalation BID lorazepam 0.5 mg PO DAILY PRN 5 days montelukast 10 mg PO BEDTIME omeprazole 20 mg PO DAILY 90 days sertraline 50 mg PO DAILY 30 days sumatriptan succinate take 1 tab at onset of headache; if no relief may repeat 1 tab after at least 2 hrs; max = 4 tabs/24 hr PO 30 days Held on 12/05/24. Instructions: Doctor's Order Ventolin HFA 90 mcg/actuation (albuterol sulfate) 2 puffs inhalation Q4-6H 30 days NS Tobacco use date assessed: 01/08/25 Dental Screening Dental Screen Date: 01/08/25 Did you have a dental visit in the last 12 months?: Yes Did you have a dental problem in the last 6 months where you did not have access to dental care?: No Was dental information given to patient?: Patient has dentist HPI f/u anxiety ( telehealth) HPI Details Patient is a 54 -year-old male here today for follow-up visit ?Patient has a past medical history significant for moderate persistent asthma, migraines, GERD Chest pains--> had an abnormal cardiac stress test a few weeks ago and is due for nuclear stress test. During a stress test EKG showing-->isolated PACs, brief atrial run- 3 beats and patient has significant shortness of breath although no evidence of ischemia. Patient has underwent nuclear stress which showed mall mostly fixed perfusion defect in the apical inferior wall. Has followed up with the Cardiology whom is trying to set patient up for cardiac catheterization. 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 At this point he reports he is feeling somewhat better since starting cholesterol medication (atorvastatin 20) . He reports he has stopped smoking vapes which may have contributed At this point patient really not ready to return to work due to his continued chest pain palpitations his particularly when stressed or anxious.. Of note we did start medication for his anxiety sertraline which he feels has been helpful for his anxious symptoms. He still has trouble sleeping in his asking for sleeping medication thus will start hydroxyzine 25 mg before bed. .. Asthma:? Reports his asthma has fairly well controlled.? Occasionally uses prednisone for acute exacerbations. 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 He also uses Singulair which he reports helps some.? He has been prescribed Advair maintenance inhaler though too expensive for patient, alternative AirDuo has been sent in. He is due for CT of chest to evaluate his lungs as well. .. [facility] Medical History Lumbar disc disease Hand arthritis Cervical radiculitis Pre-op examination Low back pain Sinus infection Viral gastroenteritis Acute bronchitis Encounter for vasectomy Annual physical exam Screening for diabetes mellitus (DM) Screening for hypercholesterolemia Colon cancer screening Screening for hypothyroidism Other chronic pain Abdominal pain IBS (irritable bowel syndrome) GERD (gastroesophageal reflux disease) Surgical History History of surgery Family History Mother Hx of cardiac cath History of open heart surgery Diabetic acidosis Father History of open heart surgery Social History Housing: House Alcohol intake: current Alcohol intake frequency: holidays/special occasions only Alcohol type: beer Patient Tobacco Use Status: Former Tobacco user e-Cigarette/Vaping Use: Currently Using Second Hand Smoke Exposure: Yes service: No Current occupational status: unemployed Current occupational exposures/hazards: No Cognitive needs: No Hearing needs: No Vision needs: Yes (wae glasses) Questionnaire PHQ-9 Over the last 2 weeks, how often have you been bothered by any of the following problems? 1. Little interest or pleasure in doing things: not at all 2. Feeling down, depressed, or hopeless: not at all 3. Trouble falling or staying asleep, or sleeping too much: several days 4. Feeling tired or having little energy: several days 5. Poor appetite or overeating: several days 6. Feeling bad about yourself - or that you are a failure or have let yourself or your family down: not at all 7. Trouble concentrating on things, such as reading the newspaper or watching television: not at all 8. Moving or speaking so slowly that other people could have noticed. Or the opposite - being so fidgety or restless that you have been moving around a lot more than usual: several days 9. Thoughts that you would be better off or of hurting yourself in some way: not at all Total score: 4 Depression Screening Interpretation: Negative Depression Screening Done: Yes Source: Developed by Drs. Mark Maynard, Amanda Vásquez, Dinesh Stone and colleagues, with an educational idania from [employer]. Thrive Questionnaire Date Thrive assessed: 01/08/25 I am a: Patient What is your living situation today?: I have a steady place to live Within the past 12 months, did the food you bought not last and you didn't have the money to get more?: I choose not to answer this question Within the past 12 months, did you worry whether your food would run out before you got money to buy more?: I choose not to answer this question Do you have trouble paying for medicines?: No Do you have trouble getting transportation to medical appointments?: No Do you have trouble paying your heating and electricity bill?: No Do you have trouble taking care of your child, family member or friend?: No Do you have trouble with day-to-day activities such as bathing, preparing meals, shopping, managing finances, etc.?: Yes Are you currently unemployed and looking for a job?: No Are you interested in more education?: No Please select the resources that you would like help with: None Currently or been in a relationship where the following occur: I choose not to answer THRIVE Score: 0 AUDIT C Alcohol Use Questionnaire (AUDIT-C) 1. How often do you have a drink containing alcohol?: Never 3. How often do you have six or more drinks on one occasion?: Never Total Score: 0 JANA-7 AMB Questionnaire JANA-7 Date JANA - 7 assessed: 01/08/25 Feeling nervous, anxious, or on edge: 0 = Not at all Not being able to stop or control worryin = Not at all Worrying too much about different things: 0 = Not at all Trouble relaxin = Not at all Being so restless that it is hard to sit still: 0 = Not at all Becoming easily annoyed or irritable: 0 = Not at all Feeling afraid as if something awful might happen: 0 = Not at all Total JANA-7 score (0-4 normal; 5-9 mild; 10-14 moderate; 15-21 severe): 0 Source: Developed by Drs. Mark Maynard, Amanda Vásquez, Dinesh Stone and colleagues, with an educational idania from [employer]. Review of Systems Const Denies headache(s) Eyes Denies loss of vision ENT Denies vertigo, Denies dizziness, Denies headache(s) and Denies sore throat Card Reports chest pain, Denies leg edema and Denies lightheadedness Resp Denies cough, Denies hemoptysis and Reports wheezing GI Denies abdominal pain, Denies melena, Denies constipation, Denies diarrhea and Denies vomiting Denies dysuria, Denies urinary frequency and Denies urinary urgency Musc Denies arthralgias, Denies joint swelling, Denies numbness and Denies tingling Neuro Denies behavioral changes, Denies vertigo, Denies dizziness, Denies headache(s), Denies loss of vision, Denies memory loss, Denies numbness and Denies tingling Psych Denies anxiety, Denies behavioral changes, Denies depression, Denies memory loss and Denies panic attacks Leno/Lymph Denies easy bleeding and Denies easy bruising Aller/Immun Reports wheezing Physical exam (Primary Care) Tobacco/Smoking Status: Tobacco use Status Tobacco use date assessed 01/08/25 01/08/25 14:30 Patient Tobacco Use Status Former Tobacco user 01/08/25 14:30 e-Cigarette/Vaping Use Currently Using 01/08/25 14:30 PHQ-9: PHQ-9 Score PHQ-9: Total score 4 01/08/25 14:30 Depression Screening Interpretation: Negative Thrive Assessment: Date of Thrive Assessment Date Thrive assessed 01/08/25 01/08/25 14:30 Currently or been in a relationship where the following occur: I choose not to answer Telehealth Telehealth Telehealth Platform: Telephone Location of provider rendering services: practice address Location of patient: address on file Patient Identification confirmed using: Name, : Yes Telehealth method: video (iphone) Patient verbally consented to treatment: Yes Patient verbally consented to billing insurance company: Yes Patient informed of any privacy concerns related to visit: Yes Coding Level of Care Code Tele Est Pt Level 4 (19484) Diagnoses Mixed hyperlipidemia E78.2 Hyperlipidemia type: mixed hyperlipidemia Abnormal nuclear cardiac imaging test R93.1 Anxiety F41.9 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 His most recent nuclear stress test showed possible ischemia and will be due for cardiac catheterization in near future Has been started on aspirin as well. (2) Abnormal nuclear cardiac imaging test: Code(s): R93.1 - Abnormal findings on diagnostic imaging of heart and coronary circulation Category: Medical Plan: As per HPI patient had an him notable nuclear stress test showing apical ischemia. Has followed up with Cardiology whom recommends cardiac catheterization. Has been started on aspirin and also will start cholesterol medication reduce overall CV risk. He reports since starting cholesterol medication he has actually been feeling bit better having less chest pain.. He has also stopped using vaporizer cigarettes which may be contributing to him feeling better. For now patient not able to return to work due to his chest pain, palpitations and shortness of breath. Filled out disability and FMLA paperwork today for another few months of continuous leave until we he will to figure out a proper diagnosis. (3) Anxiety: Code(s): F41.9 - Anxiety disorder, unspecified Category: Medical Plan: Patient reports his anxiety has been a bit better since starting SSRI therapy. He has trouble sleeping thus will start hydroxyzine 25 for bed to help induce and keep asleep. (4) Asthma-COPD overlap syndrome: Code(s): J44.89 - Other specified chronic obstructive pulmonary disease Category: Medical Plan: Patient now followed by pulmonology and has been started on a maintenance inhaler . He is due for CT of long to evaluate his lung more properly. He is due for pulmonary function test as well. Medications: New hydroxyzine HCl 25 mg PO BEDTIME 30 tabs 0RF 30 days G47.00 - Insomnia, unspecified
--- OUTSIDE RECORDS SUMMARY | 2025-01-08 14:36 | XMS_ITS | Clinical Summary ---
Author Organization [facility] Address [address] [address] Phone Care Team Providers Care Emr Trainer Name Role Phone Arnaldo Marion Primary Care Provider + Allergies No known active allergies Medications lansoprazole (PREVACID) 30 MG capsule Take 30 mg by mouth daily. Active ibuprofen (ADVIL,MOTRIN) 800 MG tablet Take 800 mg by mouth as needed. Active SUMAtriptan (IMITREX) 25 MG tablet Take 25 mg by mouth as needed. Not to exceed 200 mg/day Active albuterol 90 mcg/actuation inhaler Inhale 2 puffs into the lungs every 6 (six) hours as needed. Active albuterol 2.5 mg/0.5 mL nebulizer solution Take 2.5 mg by nebulization nightly at bedtime. Active cyclobenzaprine (FLEXERIL) 5 MG tablet Take 2 tablets (10 mg total) by mouth daily. 30 tablet 2 9 Active Additional Information Patient taking differently:10 mg OralAs needed, Reported on 07/07/2022 Active Problems Problem Noted Date Diagnosed Date Gastroesophageal reflux disease without esophagi tis 07/07/2022 Assessment & Plan (07/11/2022 9:43 PM EST): Avoid late, large, spicy meals. Keep headboard elevated at 45 angle for nighttime. Work on complete smoking cessation LANDRY Tobacco dependence 07/07/2022 Assessment & Plan (07/11/2022 9:44 PM EST): I have spent at least 3 minutes on encouraging him to work on complete smoking cessation by reducing number of cigarettes smoked daily by 1 cigarette every week and be ready for dealing with cravings by stocking finger size healthy snacks such as small carrots, cucumbers, celery sticks etc. I reviewed with him multiple benefits of complete smoking cessation including but not limited to decreased risk of developing lung cancer, bladder cancer, stroke and heart attack. Leg cramps 05/23/2019 Sciatica of left side 04/25/2019 Assessment & Plan (07/11/2022 9:43 PM EST): Use warm pack versus warm shower prior to gentle massage, stretching and ROM exercises. He may benefit from topical cream versus gel versus medicated patches. Additional benefit may be achieved from warm pool exercise program. Degenerative disc disease, lumbar 04/25/2019 Assessment & Plan (07/11/2022 9:41 PM EST): Joint protection, energy conservation. Gentle, regular exercise routine after warm pack or warm shower-pamphlet with pictures and detailed instructions for it printed for home use today. Avoid falls, injuries, overuse bending, stooping, heavy lifting or sudden turns. Keep body weight in ideal range for his height. He may benefit from topical cream such as Arnica, Biofreeze, Aspercreme versus medicated patches such as salonpas, icy hot patch 2-3 times daily and if necessary at bedtime x 3 weeks. I have provided him with 3 samples of Salonpas patches: LOT: [id number] EXP: 10/2024 C Family History Medical History Relation Comments Cancer Maternal Grandfather Asthma Mother Relation Status Comments Father Maternal Grandfather Maternal Grandmother Mother Alive Paternal Grandfather Paternal Grandmother Social History Tobacco Use Types Packs/Day Years Used Date Smoking Tobacco: Former Cigarettes Q uit: 04/25/2016 Smokeless Tobacco: Never Tobacco Cessation:Counseling Given: Not Answered Education Answer Date Recorded Are you interested in more education? Not on harini e 10/13/2022 Are you concerned about learning? Not on file 10/13/2022 No 10/13/2022 No 10/13/2022 Digital Access Answer Date Recorded No 11/11/2022 No 11/11/2022 No 11/11/2022 Reliable internet access at home? Not on file 11/11/2022 Device with a working camera? Not on file Sex and Gender Information Value Date Recorded Sex Assigned at Not on file Legal Sex Male 11:30 AM EDT Gender Identity Not on file Sexual Orientation Not on file Last Filed Vital Signs Vital Sign Reading Time Taken Comments Blood Pressure 122/78 07/07/2022 2:44 PM EST Pulse 98 07/07/2022 2:44 PM EST Temperature - - Respiratory Rate 16 07/07/2022 2:44 PM EST Oxygen Saturation 96% 07/07/2022 2:4 4 PM EST Inhaled Oxygen Concentration - - Weight 76.4 kg (168 lb 6.4 oz) 07/07/19 2:44 PM EST with shoes Height 172.7 cm (5' 7.99 ) 07/07/2022 2 :44 PM EST Body Mass Index 25.61 07/07/2022 2:44 PM EST Plan of Treatment Health Maintenance Due Date Last Done Comments LIPID PANEL 1971 DEPRESSION SCREENING 1983 SMOKING Hx and SMOKELESS TOBACCO SCREENING 1984 HEPATITIS C SCREENING 1989 HIV ONE-TIME SCREENING (18-6 5 YEARS) 1989 COLOGUARD 2016 COLONOSCOPY 2016 COLORECTAL CANCER SCREENING 2016 FIT TEST 2016 FOBT 2016 SIGMOIDOSCOPY 2016 VIRTUAL COLONOSCOPY 2016 PNEUMOCOCCAL VACCINES (50+ years) (2 of 2 - PCV) 2021 09/06/2018 ZOSTER VACCINES (1 of 2) 2021 SCREENING FOR DIABETES 05/23/2022 05/23/2019 COVID-19 VACCINE (3 - 2023-2 5 season) 2024 11/11/2020, 10/14/2020 Adult Td,Tdap Booster 04/25/2028 04/25/2018 HEPATITIS A VACCINES Aged Out No long er eligible based on patient's age to complete this topic HIB VACCINES Aged Out No longer eligi ble based on patient's age to complete this topic MENINGOCOCCAL VACCINES (ACWY) Aged Out No longer eligible based on patient's age to complete this topic MENINGOCOCCAL VACCINES (B) Aged Out N o longer eligible based on patient's age to complete this topic Medical Devices Not on file Insurance CIGNA CARELINK PPO CIGNA CARELINK PPO CIGNA CARELINK PPO CIGNA CARELINK PPO CIGNA CARELINK PPO CIGNA CARELINK PPO CIGNA CARELINK PPO CIGNA CARELINK PPO CIGNA [employer]INK PPO [employer] [id number] Care Teams Emr Trainer Relationship Specialty Start Date End Date Arnaldo Marion PA [address] [place] [address] PCP - General 04/10/19 Additional Source Comments The information contained in this document represents components of the legal health record. It is not the complete legal health record.[facility]
== END 2025-01-08 16:17 | disposition home or self-care (01) ==
LOC: HO.HMCH 14:28
PROVIDERS: PCP Physician Assistant; Visit Provider Physician Assistant
DX: E78.2 Mixed hyperlipidemia (principal); R93.1 Abnormal findings on diagnostic imaging of heart and coronary circulation; F41.9 Anxiety disorder, unspecified; J44.89 Other specified chronic obstructive pulmonary disease

== ENCOUNTER 2025-01-12 14:02 | Outpatient (REF) | payer OTHER, SELFPAY ==
[2025-01-12 14:47] LABS: Hematocrit 42.4 % (42.0-52.0); Hemoglobin 15.2 g/dl (14.0-18.0); Mean Corpuscular HGB Conc 35.8 g/dl (31.0-36.0); Mean Corpuscular Hemoglobin 30.0 pg (27.0-33.0); Mean Corpuscular Volume 83.6 fL (80.0-98.0); NRBC Abs Auto 0.000 X10*3/uL (0.0-0.012); NRBC Pct Auto 0.0 /100WBC (0.0-0.2); Platelet Count 247 X10*3/uL (160-400); Red Blood Count 5.07 X10*6/uL (4.60-5.80); White Blood Count 8.3 X10*3/uL (4.8-10.8)
--- OUTSIDE RECORDS SUMMARY | 2025-01-12 14:48 | XMS_ITS | Clinical Summary ---
Author Organization [facility] Address [address] [address] Phone Care Team Providers Care Director Service Name Role Phone Arnaldo Marion Primary Care [...] [employer] [id number] Care Teams Director Service Relationship Specialty Start Date End Date Arnaldo Marion PA [address] [place] [address] PCP - General 04/10/19 Additional Source Comments The information contained in this document represents components of the legal health record. It is not the complete legal health record.[facility]
[2025-01-12 14:57] LABS: INTERNATIONAL NORM RATIO 1.0 (0.9-1.1); Prothrombin Time 11.9 SEC (10.9-12.4)
[2025-01-12 15:14] LABS: Anion Gap 12 (12-20); Blood Urea Nitrogen 14 mg/dL (9-16); Calcium 8.2 mg/dL (8.4-10.2); Carbon Dioxide 22 mmol/L (22-29); Chloride 111 mmol/L (96-108); Estimated Glomerular Filt Rate > 60; Potassium 3.3 mmol/L (3.3-5.1); Sodium 142 mmol/L (135-145)
== END 2025-01-12 14:03 | disposition home or self-care (01) ==
LOC: HO.LAB 14:02
PROVIDERS: PCP Physician Assistant; Visit Provider Internal Medicine Cardiovascular Disease
DX: R93.1 Abnormal findings on diagnostic imaging of heart and coronary circulation (principal)
CPT/HCPCS: 36415; 80048; 85027; 85610

== ENCOUNTER → 2025-01-13 23:59 | Outpatient (BNV) | payer OTHER, SELFPAY | PROVIDERS: PCP Physician Assistant; Visit Provider Internal Medicine Cardiovascular Disease | DX: I20.89 Other forms of angina pectoris (principal) | CPT/HCPCS: 93458; 99152 ==

== ENCOUNTER 2025-01-27 13:28 | Outpatient (AMB) | payer OTHER, SELFPAY ==
--- NOTE | 2025-01-27 13:30 | MHC.OFFVIS ---
Vital Signs 01/27/25 13:31 Height 5 ft 8 in Weight 172 lb 6.424 oz BMI 26.2 BP 118/70 Blood Pressure Location Lt brachial Position Sitting Pulse 57 Pulse Source Pulse Oximeter Intake Visit Reasons: Follow up post cardiac cath Intake Note: zoogler/chest apin Space Officer Required: No Accompanied by: Self / Same As Patient Allergies No Known Allergies (NO KNOWN ALLERGIES) Allergy (Unknown, Verified 01/27/25 13:35) UNKNOWN Medication List - Last Reconciled 01/27/25 by GOKUL Aguilar acetaminophen ER (Tylenol Arthritis Pain) 650 mg PO Q12H 30 days albuterol sulfate 2.5 mg (3 mL) inhalation Q6H PRN 30 days aspirin (Adult Aspirin Regimen) 81 mg PO DAILY atorvastatin (Lipitor) 20 mg PO DAILY 30 days blood pressure monitor As directed hydroxyzine HCl 25 mg PO BEDTIME 30 days montelukast 10 mg PO BEDTIME omeprazole 20 mg PO DAILY 90 days sertraline 50 mg PO DAILY 30 days sumatriptan succinate take 1 tab at onset of headache; if no relief may repeat 1 tab after at least 2 hrs; max = 4 tabs/24 hr PO 30 days Held on 12/05/24. Instructions: Doctor's Order HPI HPI Follow up post cardiac cath: Details: Lv is a 54 yo male with PMH of hypertension, hyperlipidemia, impaired fasting glucose, GERD, asthma, was recently evaluated for chest discomfort and underwent an exercise nuclear stress test which did show small fixed perfusion defect. He underwent cardiac catheterization for further evaluation showing no significant CAD and now presents for follow-up. Today he reports that he continues to get some discomfort in his left chest region and epigastric region. The can occur at rest and with activity. He now believes it may be related to GERD and has been taking omeprazole without much improvement. He is going to seek follow-up with GI. He reports a history of having peptic ulcer in the past. No shortness of breath, PND, orthopnea or edema. No palpitations, lightheadedness, presyncope, syncope. Compliant with meds. According to his eats lots of sugary snacks. and daughter present. HPI Comments Details: Pleasant 53 year gentleman who is here for abnormal nuclear perfusion imaging. He has been experiencing left-sided pressure-like feeling which happens mostly with activity. 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 He also had had episodes of pain at rest. Due to these symptoms he underwent nuclear perfusion imaging which showed inferior perfusion defect. He also has asthma which is poorly controlled and is in the process of getting prior authorization for Advair and is only using albuterol currently. He is saying that his asthma control is not good and when he walks he gets out of breath. He also has been getting dizzy but his blood pressure is low. He is currently advised to take lisinopril 10 mg which he does not take on most days. I have advised him to cut the dose to 5 mg daily. He also uses sumatriptan for migraine headaches and I am not sure whether his elevated blood pressures were in the context of sumatriptan use which can raise blood pressure when taken PRN. [facility] Medical History Lumbar disc disease Hand arthritis Cervical radiculitis Pre-op examination Low back pain Sinus infection Viral gastroenteritis Acute bronchitis Encounter for vasectomy Annual physical exam Screening for diabetes mellitus (DM) Screening for hypercholesterolemia Colon cancer screening Screening for hypothyroidism Other chronic pain Abdominal pain IBS (irritable bowel syndrome) GERD (gastroesophageal reflux disease) Surgical History History of cardiac cath History of surgery Family History Mother Hx of cardiac cath History of open heart surgery Diabetic acidosis Father History of open heart surgery Social History Housing: House Alcohol intake: current Alcohol intake frequency: holidays/special occasions only Alcohol type: beer Patient Tobacco Use Status: Former Tobacco user e-Cigarette/Vaping Use: Currently Using Second Hand Smoke Exposure: Yes service: No Current occupational status: unemployed Current occupational exposures/hazards: No Cognitive needs: No Hearing needs: No Vision needs: Yes (wae glasses) Review of Systems Const All systems reviewed & are unremarkable except as noted in HPI and below Denies chills, Denies fatigue, Denies fever(s), Denies frequent falls, Denies weakness, Denies weight gain and Denies weight loss ENT Denies dizziness Card Reports chest pain, Denies chest pain at rest, Denies chest pain with activity, Reports diaphoresis, Denies rapid heart rate, Denies pedal edema, Denies edema, Denies lightheadedness, Denies palpitations, Denies dyspnea, Denies dyspnea on exertion and Denies orthopnea Resp Denies cough, Denies dyspnea and Denies dyspnea on exertion GI Denies hematochezia and Denies change in stool character Musc Denies abnormal gait, Denies limited range of motion, Denies muscle cramps, Denies muscle weakness, Denies numbness, Denies radiating pain into limb, Denies stiffness and Denies tingling Neuro Denies abnormal gait, Denies dizziness, Denies frequent falls, Denies numbness, Denies tingling and Denies weakness Endo Denies fatigue and Denies palpitations Physical Exam Vital Signs: BMI result Body Mass Index 26.2 GENERAL APPEARANCE: in no acute distress, pleasant. NECK: no carotid bruit, no jugular venous distention. SKIN: no suspicious lesions, warm and dry. HEART: no murmurs, regular rate and rhythm. LUNGS: clear to auscultation bilaterally. ABDOMEN: soft, nontender. EXTREMITIES: no edema. PERIPHERAL PULSES: equal. NEUROLOGIC: No gross deficits, AAO X 3 Const General: cooperative, healthy appearing, comfortable and no acute distress Orientation/consciousness: patient oriented x3 Neck Neck: Yes normal visual inspection Resp Effort & Inspection: normal respiratory effort Auscultation: clear to auscultation bilaterally, no crackles, no rales, no rhonchi and no wheezes Cardio Jugular venous distension: no JVD Rate: regular rate Rhythm: regular rhythm Heart sounds: S1 normal heart sound present, S2 normal heart sound present, no gallops, no murmurs and no rubs Peripheral pulses: Peripheral pulses 2+ throughout Neuro General: patient oriented x3 Extrem Other: right radial cath site with easily palpable radial pulse, right hand assessment normal. General: Yes normal to inspection, No no pedal edema and No calf tenderness Psych Appearance: grossly normal Mental Status: mental status grossly normal Speech and movement: Normal speech and movement present Assessment & Plan Assessment & Plan (1) Chest discomfort: Code(s): R07.89 - Other chest pain Category: Medical Plan: Reports of chest discomfort at rest and with activity. Cardiac risks of hypertension, hyperlipidemia, smoking, impaired fasting glucose. ER evaluation for his symptoms 12/14/2024 and ruled out for ACS. Nuclear stress test was done on 12/02/2024 showing a small fixed perfusion defect in the apical inferior wall. This led to cardiac catheterization 01/13/2025 showing no significant CAD. Test results reviewed with him in detail. His symptom is noncardiac. Continue with risk factor modification. Will have him stop daily aspirin as he has symptoms that could be related to GERD. Continue PPI. Continue atorvastatin with LDL goal less than 70. Continue exercise as tolerated, weight control. Cardiology follow-up PRN. (2) S/P cardiac cath: Comment: 01/13/2025 left main and left circumflex normal, lad and RCA mild luminal irregularities, less than 30% stenosis. Code(s): Z98.890 - Other specified postprocedural states Category: Surgical Plan: Right radial catheterization site well healed. (3) HTN (hypertension): Code(s): I10 - Essential (primary) hypertension Category: Medical Qualifiers: Hypertension type: primary hypertension Qualified Code(s): I10 - Essential (primary) hypertension Plan: Blood pressure goal less than 130/80. Well controlled at this time. No med changes made. (4) HLD (hyperlipidemia): Code(s): E78.5 - Hyperlipidemia, unspecified Category: Medical Qualifiers: Hyperlipidemia type: mixed hyperlipidemia Qualified Code(s): E78.2 - Mixed hyperlipidemia Plan: [place] LDL goal less than 100. Triglyceride goal less than 150. Labs done 12/09/2024 showed LDL not performed, triglycerides 661. He was started on atorvastatin 20 mg daily by PCP at that time. At this time I will take the liberty to enter a fasting lipid profile for re-evaluation. The importance of good cholesterol control reviewed with him. He may need higher dose statin. Plan I discussed with the patient the results of the cardiac catheterization, which showed minimal cholesterol buildup, indicating a low risk for angina/ heart attack. We reviewed the importance of continuing atorvastatin therapy and dietary modifications to manage hyperlipidemia. I advised discontinuing aspirin due to potential gastrointestinal irritation and recommended follow-up with gastroenterology for GERD symptoms. The patient was encouraged to maintain a healthy lifestyle to support cardiovascular health. . Orders: Orders Lipid Panel Today E78.2 - Mixed hyperlipidemia Medications: Discontinued aspirin (Adult Aspirin Regimen) Discontinued Reason: Doctor's Order 81 mg PO DAILY 120 tabs 3RF Patient Instructions: - Continue taking atorvastatin as prescribed. - Recheck cholesterol levels as advised. - Maintain dietary changes: reduce carbohydrates and avoid fried foods. - Stop taking aspirin to avoid stomach irritation. - Follow up with a aeronautical products sales engineer for GERD symptoms. - Engage in regular physical activity and manage weight. Patient was informed and verbally consented to the use of an ambient scribe for clinic note documentation during this visit. Visit time spent on chart review, interview, assessment, orders, documentation. Coding Level of Care Code Est Pt Level 4 (79470) Complex EM visit Add On G2211 Diagnoses Chest discomfort R07.89 S/P cardiac cath Z98.890 Primary hypertension I10 Hypertension type: primary hypertension Mixed hyperlipidemia E78.2 Hyperlipidemia type: mixed hyperlipidemia
[2025-01-27 13:31] VITALS: BP 118/70; PULSE 57; BMI 26.2
--- OUTSIDE RECORDS SUMMARY | 2025-01-27 14:19 | XMS_ITS | Clinical Summary ---
Author Organization [facility] Address [address] [place] [phone] Phone Care Team Providers Care Mud Cleaner Operator Name Role Phone Arnaldo Marion Primary Care [...] [employer] [id number] Care Teams Mud Cleaner Operator Relationship Specialty Start Date End Date Arnaldo Marion PA [address] [place] [id number] PCP - General 04/10/19 Additional Source Comments The information contained in this document represents components of the legal health record. It is not the complete legal health record.[facility]
== END 2025-01-27 14:21 | disposition home or self-care (01) ==
LOC: HO.HCS 13:29
PROVIDERS: PCP Physician Assistant; Visit Provider Nurse Practitioner Family
DX: R07.89 Other chest pain (principal); Z98.890 Other specified postprocedural states; I10 Essential (primary) hypertension; E78.2 Mixed hyperlipidemia
CPT/HCPCS: 99214

== ENCOUNTER 2025-01-29 08:51 | Outpatient (REF) | payer OTHER, SELFPAY ==
--- OUTSIDE RECORDS SUMMARY | 2025-01-29 09:12 | XMS_ITS | Clinical Summary ---
Author Organization [facility] Address [address] [place] [phone] Phone Care Team Providers Care Tree Thinner Name Role Phone Arnaldo Marion Primary Care [...] [employer] [id number] Care Teams Tree Thinner Relationship Specialty Start Date End Date Arnaldo Marion PA [address] [place] [id number] PCP - General 04/10/19 Additional Source Comments The information contained in this document represents components of the legal health record. It is not the complete legal health record.[facility]
[2025-01-29 11:15] LABS: Cholesterol 151 mg/dL (<200); HDL Cholesterol 30 mg/dL (>40); Triglycerides 315 mg/dL (<150)
== END 2025-01-29 08:52 | disposition home or self-care (01) ==
LOC: HO.10HDL 08:51
PROVIDERS: Visit Provider Nurse Practitioner Family
DX: E78.2 Mixed hyperlipidemia (principal)
CPT/HCPCS: 36415; 80061

== ENCOUNTER 2025-02-26 13:04 | Outpatient (AMB) | payer OTHER, SELFPAY ==
[2025-02-26 13:18] VITALS: BP 124/86; PULSE 88; TEMP 36.3; O2SAT 96; BMI 27.2
--- NOTE | 2025-02-26 13:18 | A.OFFPC_ITS ---
Vital Signs 02/26/25 13:18 Height 5 ft 8 in Weight 179 lb BMI 27.2 BP 124/86 Blood Pressure Location Lt brachial Position Sitting Pulse 88 Pulse Source Pulse Oximeter Temp 97.3 F Temp Source Temporal Artery Scan Pulse Oximetry (%) 96 Oxygen Delivery Method Room Air Intake Visit Reasons: f/u Asthma/ Anxiety Allergies No Known Allergies (NO KNOWN ALLERGIES) Allergy (Unknown, Verified 02/26/25 13:50) UNKNOWN Medication List - Last Reconciled 02/26/25 by Arnaldo Marion PA-C acetaminophen ER (Tylenol Arthritis Pain) 650 mg PO Q12H 30 days albuterol sulfate 2.5 mg (3 mL) inhalation Q6H PRN 30 days atorvastatin (Lipitor) 20 mg PO DAILY 30 days blood pressure monitor As directed hydroxyzine HCl 25 mg PO BEDTIME 30 days montelukast 10 mg PO BEDTIME omeprazole 20 mg PO DAILY 90 days sertraline 50 mg PO DAILY 30 days sumatriptan succinate take 1 tab at onset of headache; if no relief may repeat 1 tab after at least 2 hrs; max = 4 tabs/24 hr PO 30 days Held on 12/05/24. Instructions: Doctor's Order Tobacco use date assessed: 02/26/25 Dental Screening Dental Screen Date: 02/26/25 Did you have a dental visit in the last 12 months?: Yes Did you have a dental problem in the last 6 months where you did not have access to dental care?: No Was dental information given to patient?: Patient has dentist HPI f/u Asthma/ Anxiety HPI Details Patient is a 54 -year-old male here today for follow-up visit ?Patient has a past medical history significant for moderate persistent asthma, migraines, GERD Concern--> he reports chronically having epigastric pain and dyspepsia even with the use of omeprazole daily. Will start workup including H pylori testing and abdominal ultrasound to rule out a gallbladder concern. Chest pains--> had an abnormal cardiac stress test which prompted further cardiac evaluation.. During a stress test EKG showing-->isolated PACs, brief atrial run- 3 beats and patient has significant shortness of breath although no evidence of ischemia. Followed up with the Cardiology at [facility] and underwent catheterization which did not show any coronary artery disease He continues on statin therapy and reports he has been feeling better. Recent lipid panel much improved. At this point he is ready to return to work as he is slated to return back to work as of 03/16/2025 Of note we did start medication for his anxiety sertraline which he feels has be en helpful for his anxious symptoms. He still has trouble sleeping in his asking for sleeping medication thus will start hydroxyzine 25 mg before bed. .. Asthma:? Reports his asthma has fairly well controlled.? Occasionally uses prednisone for acute exacerbations. 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 He also uses Singulair which he reports helps some.? He has been prescribed Advair maintenance inhaler though too expensive for patient, alternative AirDuo has been sent in. He is due for CT of chest to evaluate his lungs as well. [facility] Medical History (Updated 02/26/25 @ 13:59 by Arnaldo Marion PA-C) Lumbar disc disease Hand arthritis Cervical radiculitis Pre-op examination Low back pain Sinus infection Viral gastroenteritis Acute bronchitis Encounter for vasectomy Annual physical exam Screening for diabetes mellitus (DM) Screening for hypercholesterolemia Colon cancer screening Screening for hypothyroidism Other chronic pain Abdominal pain IBS (irritable bowel syndrome) GERD (gastroesophageal reflux disease) Surgical History History of cardiac cath History of surgery Family History Mother Hx of cardiac cath History of open heart surgery Diabetic acidosis Father History of open heart surgery Social History Housing: House Alcohol intake: current Alcohol intake frequency: holidays/special occasions only Alcohol type: beer Patient Tobacco Use Status: Former Tobacco user e-Cigarette/Vaping Use: Former Use Second Hand Smoke Exposure: Yes service: No Current occupational status: unemployed Current occupational exposures/hazards: No Cognitive needs: No Hearing needs: No Vision needs: Yes (wae glasses) Questionnaire PHQ-9 Over the last 2 weeks, how often have you been bothered by any of the following problems? 1. Little interest or pleasure in doing things: not at all 2. Feeling down, depressed, or hopeless: not at all 3. Trouble falling or staying asleep, or sleeping too much: several days 4. Feeling tired or having little energy: several days 5. Poor appetite or overeating: several days 6. Feeling bad about yourself - or that you are a failure or have let yourself or your family down: not at all 7. Trouble concentrating on things, such as reading the newspaper or watching television: not at all 8. Moving or speaking so slowly that other people could have noticed. Or the opposite - being so fidgety or restless that you have been moving around a lot more than usual: several days 9. Thoughts that you would be better off or of hurting yourself in some way: not at all Total score: 4 Depression Screening Interpretation: Negative Depression Screening Done: Yes Source: Developed by Drs. Mark Maynard, Amanda Vásquez, Dinesh Stone and colleagues, with an educational idania from [employer]. Thrive Questionnaire Date Thrive assessed: 10/14/24 I am a: Patient What is your living situation today?: I have a steady place to live Within the past 12 months, did the food you bought not last and you didn't have the money to get more?: I choose not to answer this question Within the past 12 months, did you worry whether your food would run out before you got money to buy more?: I choose not to answer this question Do you have trouble paying for medicines?: No Do you have trouble getting transportation to medical appointments?: No Do you have trouble paying your heating and electricity bill?: No Do you have trouble taking care of your child, family member or friend?: No Do you have trouble with day-to-day activities such as bathing, preparing meals, shopping, managing finances, etc.?: Yes Are you currently unemployed and looking for a job?: No Are you interested in more education?: No Please select the resources that you would like help with: None Currently or been in a relationship where the following occur: I choose not to answer THRIVE Score: 0 AUDIT C Alcohol Use Questionnaire (AUDIT-C) 1. How often do you have a drink containing alcohol?: Never 3. How often do you have six or more drinks on one occasion?: Never Total Score: 0 JANA-7 AMB Questionnaire JANA-7 Date JANA - 7 assessed: 01/08/25 Feeling nervous, anxious, or on edge: 1 = Several days Not being able to stop or control worryin = Not at all Worrying too much about different things: 0 = Not at all Trouble relaxin = More than half the days Being so restless that it is hard to sit still: 0 = Not at all Becoming easily annoyed or irritable: 3 = Nearly every day Feeling afraid as if something awful might happen: 0 = Not at all Total JANA-7 score (0-4 normal; 5-9 mild; 10-14 moderate; 15-21 severe): 6 Source: Developed by Drs. Mark Maynard, Amanda Vásquez, Dinesh Stone and colleagues, with an educational idania from [employer]. JANA-7 Assessment Billing JANA-7 Assessment Tool: JANA-7 Assessment 34332 Review of Systems Const Denies headache(s) Eyes Denies loss of vision ENT Denies vertigo, Denies dizziness, Denies headache(s) and Denies sore throat Card Denies chest pain, Denies leg edema and Denies lightheadedness Resp Reports cough, Denies hemoptysis and Reports wheezing GI Reports abdominal pain, Denies melena, Denies constipation, Reports dyspepsia, Reports heartburn, Denies diarrhea and Denies vomiting Denies dysuria, Denies urinary frequency and Denies urinary urgency Musc Denies arthralgias, Denies joint swelling, Denies numbness and Denies tingling Neuro Denies Abnormal speech present, Denies behavioral changes, Denies vertigo, Denies dizziness, Denies headache(s), Denies loss of vision, Denies memory loss, Denies numbness and Denies tingling Psych Denies anxiety, Denies behavioral changes, Denies depression, Denies memory loss and Denies panic attacks Leno/Lymph Denies easy bleeding and Denies easy bruising Aller/Immun Reports wheezing Physical exam (Primary Care) Vital Signs: Last Vital Signs Temp 97.3 F 02/26/25 13:18 Pulse 88 02/26/25 13:18 BP 124/86 02/26/25 13:18 Pulse Ox 96 02/26/25 13:18 Oxygen Delivery Method Room Air 02/26/25 13:18 BMI result Body Mass Index 27.2 Tobacco/Smoking Status: Tobacco use Status Tobacco use date assessed 02/26/25 02/26/25 13:24 Patient Tobacco Use Status Former Tobacco user 02/26/25 13:20 e-Cigarette/Vaping Use Former Use 02/26/25 13:24 PHQ-9: PHQ-9 Score PHQ-9: Total score 4 02/26/25 13:52 Depression Screening Interpretation: Negative Thrive Assessment: Date of Thrive Assessment Date Thrive assessed 10/14/24 02/26/25 13:20 Currently or been in a relationship where the following occur: I choose not to answer Const General: healthy appearing, no acute distress, alert and awake Nutritional Appearance: well nourished Orientation/consciousness: oriented to person, oriented to place and oriented to time HENMT Ears: TM's normal bilaterally General nose exam: Normal nasal mucous membranes and turbinates present Eyes Conjunctivae: conjunctivae normal Sclerae: sclerae normal Pupils: Equal, round and reactive pupils present Neck Neck: Yes no lymphadenopathy and Yes no JVD Thyroid: Thyroid normal Carotids: no bruits Resp Effort & Inspection: normal respiratory effort and not tachypneic Auscultation: no crackles, no rales, no rhonchi and no wheezes Cardio Rate: regular rate Rhythm: regular rhythm Heart sounds: no murmurs and normal S1 and S2 GI Palpation (GI): Soft to palpation, nontender, no hepatomegaly and no splenomegaly Auscultation: normal bowel sounds Skin General skin exam: no rashes or lesions noted and dry skin Neuro General: oriented to person, oriented to place and oriented to time Cranial nerves: Yes Equal, round and reactive pupils present Speech: No Abnormal speech present Gait exam (Neuro): Normal gait present Motor exam (neuro): no tremor noted Extrem Right upper extremity: full ROM Left upper extremity: full ROM Right lower extremity: full ROM; no edema Left lower extremity: full ROM; no edema Psych Mental Status: mental status grossly normal Speech and movement: Normal speech and movement present Affect: normal affect Attitude: cooperative Thought process: Normal thought process present Coding Level of Care Code Est Pt Level 4 (80824) Diagnoses Paresthesia of hand, bilateral R20.2 Epigastric discomfort R10.13 Mixed hyperlipidemia E78.2 Hyperlipidemia type: mixed hyperlipidemia Anxiety F41.9 Asthma-COPD overlap syndrome J44.89 Additional Codes JANA-7 Assessment Billing - JANA-7 Assessment Tool: JANA-7 Assessment 90924 ([id number]) Assessment & Plan Assessment & Plan (1) Paresthesia of hand, bilateral: Code(s): R20.2 - Paresthesia of skin Category: Medical Plan: Patient reports paresthesias in both hands and related to recent weight gain. We did discuss doing EMG testing on his upper extremities though he would like to hold off on this for now and try to lose weight. (2) Epigastric discomfort: Code(s): R10.13 - Epigastric pain Category: Medical Plan: Patient reporting chronic epigastric discomfort even with the use omeprazole daily. Will send for ultrasound and H pylori testing to evaluate for infection or an biliary cause of his epigastric pain. (3) HLD (hyperlipidemia): Code(s): E78.5 - Hyperlipidemia, unspecified Category: Medical Qualifiers: Hyperlipidemia type: mixed hyperlipidemia Qualified Code(s): E78.2 - Mixed hyperlipidemia Plan: He has started atorvastatin 20 mg and reports feeling better. His most recent nuclear stress test showed possible ischemia and will be due for cardiac catheterization in near future Has been started on aspirin as well. (4) Anxiety: Code(s): F41.9 - Anxiety disorder, unspecified Category: Medical Plan: Patient reports his anxiety has been a bit better since starting SSRI therapy. He has trouble sleeping thus will start hydroxyzine 25 for bed to help induce and keep asleep. (5) Asthma-COPD overlap syndrome: Code(s): J44.89 - Other specified chronic obstructive pulmonary disease Category: Medical Plan: Patient now followed by pulmonology and has been started on a maintenance inhaler . He is due for CT of long to evaluate his lung more properly. Today in office a bit wheezy this will supply patient with prednisone to use on a p.r.n. basis for asthma exacerbation Orders: Orders US abdomen complete 02/26/25 R10.13 - Epigastric pain CT chest wo IV con 02/26/25 J44.89 - Other specified chronic obstructive pulmon keegan disease H pylori Ag Stool 02/26/25 R10.13 - Epigastric pain Medications: New prednisone 20 mg PO DAILY 18 tabs 0RF 9 days J44.89 - Other specified chronic obstructive pulmonary disease
--- OUTSIDE RECORDS SUMMARY | 2025-02-26 17:06 | XMS_ITS | Clinical Summary ---
Author Organization [facility] Address [address] [address] Phone Care Team Providers Care Mimeograph Operator Name Role Phone Arnaldo Marion Primary [...] 2) 2021 SCREENING FOR DIABETES 05/23/2022 05/23/2019 INFLUENZA VACCINE (#1) 2025 COVID-19 VACCINE (3 - 2024-2 6 season) 2025 11/11/2020, 10/14/2020 Adult Td,Tdap Booster 04/25/2028 04/25/2018 [...] PPO CIGNA CARELINK PPO CIGNA CARELINK PPO [employer] [id number] Care Teams Mimeograph Operator Relationship Specialty Start Date End Date Arnaldo Marion PA [address] [place] [address] PCP - General 04/10/19 Additional Source Comments The information contained in this document represents components of the legal health record. It is not the complete legal health record.[facility]
== END 2025-02-26 14:14 | disposition home or self-care (01) ==
LOC: HO.HMCH 13:05
PROVIDERS: PCP Physician Assistant; Visit Provider Physician Assistant
DX: R20.2 Paresthesia of skin (principal); J44.89 Other specified chronic obstructive pulmonary disease; R10.13 Epigastric pain; E78.2 Mixed hyperlipidemia; F41.9 Anxiety disorder, unspecified

== ENCOUNTER → 2025-02-26 13:04 | Outpatient (BNVA) | payer OTHER, SELFPAY | PROVIDERS: PCP Physician Assistant; Visit Provider Physician Assistant | DX: R20.2 Paresthesia of skin (principal); R10.13 Epigastric pain; E78.5 Hyperlipidemia, unspecified; F41.9 Anxiety disorder, unspecified; J44.89 Other specified chronic obstructive pulmonary disease; Z13.31 Encounter for screening for depression | CPT/HCPCS: 96127 ==

== ENCOUNTER 2025-05-09 07:01 | Outpatient (REF) | payer OTHER, SELFPAY ==
--- NOTE | ~2025-05-09 | CT_ITS ---
CLINICAL HISTORY: J44.89 - Other specified chronic obstructive pulmonary disease --- Additional Notes or Special Instructions: Patient with persistent chest pain and asthma symptoms. CT of chest to Exam: Unenhanced CT chest with multiplanar reformats. High-resolution technique was employed. Comparison: Chest x-ray 12/14/2024. Findings: Lungs are free of focal consolidation. A 5 mm right lower lobe perivascular nodule (5; 350) is noted. No other pulmonary nodules or parenchymal lesions. No septal thickening or bronchovascular marking thickening. There may be some equivocal borderline lower lobe bronchiectasis on the right (for example, 5; 370). No other significant bronchiectasis. No subpleural honeycombing. There is trace biapical paraseptal emphysema. No centrilobular emphysema. No pneumothorax. No mediastinal or hilar masses or adenopathy. No pleural or pericardial effusions. Images below the diaphragms reveal no acute abnormalities. Osseous structures reveal no destructive osseous lesions. Impression: 1. No acute pulmonary disease or evidence of significant interstitial lung disease. 2. Trace biapical paraseptal emphysema. 3. 5 mm right lower lobe perivascular nodule. This has below size threshold to warrant follow-up or surveillance imaging. However, if patient is considered high risk for lung cancer, 1 year follow-up chest CT could be considered. This document has been electronically signed by: Tres Murcia MD on 05/11/2025 15:49:07
--- OUTSIDE RECORDS SUMMARY | 2025-05-09 07:04 | XMS_ITS | Clinical Summary ---
Author Organization [facility] Address [address] [address] Phone Care Team Providers Care Supervisor Newspaper Deliveries Name Role Phone Arnaldo Marion Primary Care [...] 11/11/2020, 10/14/2020 Adult Td,Tdap Booster 04/25/2028 04/25/2018 RSV VACCINE (1 - 1-dose 75+ series) 2046 HEPATITIS A VACCINES Aged Out No long [...] PPO CIGNA CARELINK PPO CIGNA [employer] PPO [facility] [employer] [id number] Care Teams Supervisor Newspaper Deliveries Relationship Specialty Start Date End Date Arnaldo Marion PA [address] [place] [address] PCP - General 04/10/19 Additional Source Comments The information contained in this document represents components of the legal health record. It is not the complete legal health record.[facility]
== END 2025-05-09 07:02 | disposition home or self-care (01) ==
LOC: HO.CT 07:01
PROVIDERS: PCP Physician Assistant; Visit Provider Physician Assistant
DX: J44.89 Other specified chronic obstructive pulmonary disease (principal)
CPT/HCPCS: 71250

== ENCOUNTER → 2025-05-09 07:03 | Outpatient (BNV) | payer OTHER, SELFPAY | PROVIDERS: PCP Physician Assistant; Visit Provider Radiology Diagnostic Radiology | DX: J44.89 Other specified chronic obstructive pulmonary disease (principal); R91.1 Solitary pulmonary nodule | CPT/HCPCS: 71250 ==